=== PATIENT | male | born 1985 | race Two or more races ===

== ENCOUNTER 2020-12-05 16:17 | Outpatient (REF) | payer OTHER, SELFPAY ==
[2020-12-05 18:05] LABS: Glucose Urine UA NEG (NEG); Leukocyte Esterase Urine NEG (NEG); Nitrite Urine NEG (NEG); PH 5.5 (5.0-8.0); Specific Gravity - Urine >= 1.030 (1.005-1.025); Urine Blood NEG (NEG); Urine Ketones NEG (NEG); Urine Protein NEG (NEG-TRACE)
[2020-12-05 18:17] LABS: Appearance Urine CLEAR; Color Urine YELLOW
== END 2020-12-05 16:18 | disposition home or self-care (01) ==
LOC: HO.LAB 16:17
PROVIDERS: PCP Family Medicine; Visit Provider Family Medicine
DX: R35.0 Frequency of micturition (principal); R30.9 Painful micturition, unspecified
CPT/HCPCS: 81003; 87086

== ENCOUNTER 2022-03-26 16:41 | Outpatient (REF) | payer OTHER, SELFPAY ==
[2022-03-26 16:54] LABS: MANUAL DIFF FLAG NO
[2022-03-26 17:34] LABS: Basophils Percent Auto 0.4 % (0-2); Eosinophils Absolute Auto 0.1 X10*3/uL (0.0-0.4); Eosinophils Percent Auto 0.6 % (0-4); Hematocrit 40.2 % (42.0-52.0); Hemoglobin 13.1 g/dl (14.0-18.0); Imm Gran Abs Auto 0.03 X10*3/uL (0.00-0.03); Imm Gran Pct Auto 0.4 % (0.0-0.4); Lymphocytes Absolute Auto 2.3 X10*3/uL (1.2-4.9); Lymphocytes Percent Auto 26.9 % (20-40); Mean Corpuscular HGB Conc 32.6 g/dl (31.0-36.0); Mean Corpuscular Hemoglobin 26.5 pg (27.0-33.0); Mean Corpuscular Volume 81.4 fL (80.0-98.0); Mean Platelet Volume 9.6 fL (9.4-12.4); Monocytes Absolute Auto 0.7 X10*3/uL (0.1-1.2); Neutrophils Absolute Auto 5.4 x10*3/uL (2.0-8.3); Neutrophils Percent Auto 63.7 % (45-73); Platelet Count 334 X10*3/uL (160-400); Red Blood Count 4.94 X10*6/uL (4.60-5.80); Red Cell Distribution Width 12.6 % (11.0-16.0); White Blood Count 8.4 X10*3/uL (4.8-10.8)
== END 2022-03-26 16:42 | disposition home or self-care (01) ==
LOC: HO.LAB 16:41
PROVIDERS: PCP Family Medicine; Visit Provider Family Medicine
DX: R10.9 Unspecified abdominal pain (principal)
CPT/HCPCS: 36415; 85025

== ENCOUNTER 2022-05-05 12:46 | Outpatient (REF) | payer OTHER, SELFPAY ==
[2022-05-05 13:53] LABS: Appearance Urine Clear; Color Urine Yellow; Glucose Urine UA Negative (Negative); Leukocyte Esterase Urine Negative (Negative); Nitrite Urine Negative (Negative); PH 6.5 (5.0-9.0); Urine Blood Negative (Negative); Urine Ketones Negative (Negative); Urine Protein Negative (Neg-Trace)
== END 2022-05-05 12:47 | disposition home or self-care (01) ==
LOC: HO.LAB 12:46
PROVIDERS: PCP Family Medicine; Visit Provider Family Medicine
DX: R30.0 Dysuria (principal)
CPT/HCPCS: 81003

== ENCOUNTER → 2022-06-17 11:19 | Outpatient (BNVA) | payer OTHER, SELFPAY | PROVIDERS: PCP Family Medicine; Visit Provider Physician Assistant Medical | DX: S39.012A Strain of muscle, fascia and tendon of lower back, initial encounter (principal); X50.0XXA Overexertion from strenuous movement or load, initial encounter | CPT/HCPCS: 99203 ==

== ENCOUNTER → 2022-06-20 09:36 | Outpatient (BNVA) | payer OTHER, SELFPAY | PROVIDERS: PCP Family Medicine; Visit Provider Physician Assistant Medical | DX: S39.012A Strain of muscle, fascia and tendon of lower back, initial encounter (principal); X50.0XXA Overexertion from strenuous movement or load, initial encounter | CPT/HCPCS: 99213 ==

== ENCOUNTER → 2022-06-23 11:29 | Outpatient (BNVA) | payer OTHER, SELFPAY | PROVIDERS: PCP Family Medicine; Visit Provider Physician Assistant Medical | DX: S39.012A Strain of muscle, fascia and tendon of lower back, initial encounter (principal); X58.XXXA Exposure to other specified factors, initial encounter; M54.16 Radiculopathy, lumbar region | CPT/HCPCS: 72110; 99214 ==

== ENCOUNTER → 2022-06-27 09:20 | Outpatient (BNVA) | payer OTHER, SELFPAY | PROVIDERS: PCP Family Medicine; Visit Provider Physician Assistant Medical | DX: M54.16 Radiculopathy, lumbar region (principal) | CPT/HCPCS: 99213 ==

== ENCOUNTER → 2022-07-04 09:45 | Outpatient (BNVA) | payer OTHER, SELFPAY | PROVIDERS: PCP Family Medicine; Visit Provider Physician Assistant Medical | DX: M54.16 Radiculopathy, lumbar region (principal) | CPT/HCPCS: 99213 ==

== ENCOUNTER → 2022-07-18 09:42 | Outpatient (BNVA) | payer OTHER, SELFPAY | PROVIDERS: PCP Family Medicine; Visit Provider Physician Assistant Medical | DX: M54.16 Radiculopathy, lumbar region (principal) | CPT/HCPCS: 99213 ==

== ENCOUNTER 2022-07-18 14:00 | Outpatient (RCR) | payer OTHER, SELFPAY ==
--- NOTE | 2022-07-01 15:05 | MHC.PT.EP ---
[facility] [place] Office [place] Office [place] Office [address] Nima Goyal [address] [phone] F: [phone] F: [phone] F: [phone] F: [phone] Physical Therapy Plan of Care Date of Evaluation: Date of Surgery: Diagnosis: This is a 37 yo male presenting to skilled PT with a script for R lumbar strain Assessment: This is a 37 yo male presenting to skilled PT with a script for R lumbar strain. He was lifting a heavy box from the ground and when he was mid lift he felt a pinch in his R side low back and R leg (radiated into buttock and hamstring but not past the knee). He is being followed by [facility] work connection and returns to them on 07/04/22. Patient reports that he was given prednisone and ibuprofen which have been helping. He also had an x-ray and may get an MRI if needed. 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 He does a lot of lifting and pushing. Pain is now located at the R side low back and leg which is described still as achy and steady. Denies numbness or tingling. Pain increases with sitting. Pain improves with walking and laying down Assessment reveals pain that ranges from 4-5/10. Patient demos decreased lumbar ROM, decreased strength of back, core and gluts. He demos an antalgic gait pattern, impaired resting posture and compensatory/cautious movements with transfers. Based on functional limitations, impaired QOL and decreased pain tolerance patient is a good candidate for skilled PT 2x/wk for 5 wks. Frequency and Duration: The patient will be seen 2x/wk for 5wks Short Term Goals: I in HEP in 2wks Report 50% improvements in 3wks Centralize symptoms in 3wks Ways Operator Goals: Return to work in full when medically cleared Demo proper lifting and squatting techniques without cues from PT Improve pain to no more than 2/10 at the worst Improve oswestry by at least 5 points Treatment Plan: Modalities to reduce pain, spasms and effusion. Manual therapy to restore motion and function. Therapeutic exercise to improve strength and flexibility. Neuromuscular re-education for posture and balance. Therapeutic activities to return to functional activities of daily living. Electronically signed by: Kim Mac PT Please sign and return to therapist. Thank you for your referral.
--- NOTE | 2022-07-30 08:19 | MHC.PT.DC ---
[facility] [place] Office [place] Office [place] Office [address] Nima Goyal [address] [phone] F: [phone] F: [phone] F: [phone] F: [phone] Physical Therapy Discharge Report Diagnosis: This is a 37 yo male presenting to skilled PT with a script for R lumbar strain Date of Surgery: Date of Evaluation: 07/01/22 Date of Discharge: 07/30/22 Treatments to Date: 3 Cancellations to Date: 0 No Shows to Date: 0 Discharge Status: Achieved Goals Improved Function Independent with HEP Patient Elected to Stop Discharge Summary: 07/18/2022: At the last tx session, patient continues to be centralized with his sx. We continued with prone exercises with gentle core stab. He had no increase in pain with any interventions today. We added bridges which did not increase pain today. Cues for not lifting hips with prone extensions. Plan was to to consider adding hip add and deadbugs next visit per primary PT POC however DC'd as patient reports feeling much better and ready for DC. Continued with manual, estim, and KT tape as well all without adverse reaction but sensitivity to R low back >L. DC to HEP Electronically signed by: Kim Mac PT Please sign and return to therapist. Thank you for your referral.
== END 2022-07-30 08:19 | disposition home or self-care (01) ==
LOC: HO.PTCHIC 14:00
PROVIDERS: Visit Provider Physician Assistant Medical
DX: S39.012D Strain of muscle, fascia and tendon of lower back, subsequent encounter (principal)
CPT/HCPCS: 97014; 97110; 97140; 97161

== ENCOUNTER 2023-04-09 14:52 | Outpatient (REF) | payer SELFPAY ==
[2023-04-10 16:33] LABS: Homocysteine 9.3 umol/L (<11.4)
== END 2023-04-09 14:53 | disposition home or self-care (01) ==
LOC: HO.CHCLDS 14:52
PROVIDERS: Visit Provider Family Medicine
DX: Z82.49 Family history of ischemic heart disease and other diseases of the circulatory system (principal)
CPT/HCPCS: 36415; 83090

== ENCOUNTER 2023-12-09 10:58 | Outpatient (REF) | payer OTHER, SELFPAY ==
[2023-12-09 13:11] LABS: MANUAL DIFF FLAG NO
[2023-12-09 13:15] LABS: Basophils Percent Auto 0.2 % (0-2); Eosinophils Absolute Auto 0.1 X10*3/uL (0.0-0.4); Eosinophils Percent Auto 1.2 % (0-4); Hematocrit 41.8 % (42.0-52.0); Hemoglobin 13.7 g/dl (14.0-18.0); Imm Gran Abs Auto 0.01 X10*3/uL (0.00-0.03); Imm Gran Pct Auto 0.2 % (0.0-0.4); Lymphocytes Absolute Auto 1.6 X10*3/uL (1.2-4.9); Lymphocytes Percent Auto 31.3 % (20-40); Mean Corpuscular HGB Conc 32.8 g/dl (31.0-36.0); Mean Corpuscular Hemoglobin 26.7 pg (27.0-33.0); Mean Corpuscular Volume 81.3 fL (80.0-98.0); Mean Platelet Volume 9.9 fL (9.4-12.4); Monocytes Absolute Auto 0.5 X10*3/uL (0.1-1.2); Monocytes Percent Auto 10.8 % (2-11); Neutrophils Absolute Auto 2.8 x10*3/uL (2.0-8.3); Neutrophils Percent Auto 56.3 % (45-73); Platelet Count 278 X10*3/uL (160-400); Red Blood Count 5.14 X10*6/uL (4.60-5.80); Red Cell Distribution Width 12.2 % (11.0-16.0)
[2023-12-09 14:07] LABS: Erythrocyte Sedimentation Rate 6 MM/HR (0-15)
== END 2023-12-09 10:59 | disposition home or self-care (01) ==
LOC: HO.10HDL 10:58
PROVIDERS: Visit Provider Family Medicine
DX: R10.32 Left lower quadrant pain (principal)
CPT/HCPCS: 36415; 85025; 85652

== ENCOUNTER 2024-03-21 16:24 | Outpatient (REF) | payer OTHER, SELFPAY ==
[2024-03-21 17:04] LABS: Appearance Urine Clear; Color Urine Yellow; Glucose Urine UA Negative (Negative); Leukocyte Esterase Urine Negative (Negative); Nitrite Urine Negative (Negative); Specific Gravity - Urine 1.025 (1.005-1.025); Urine Blood Negative (Negative); Urine Ketones Trace mg/dL (Negative); Urine Protein Negative (Neg-Trace)
== END 2024-03-21 16:25 | disposition home or self-care (01) ==
LOC: HO.LAB 16:24
PROVIDERS: PCP Family Medicine; Visit Provider Family Medicine
DX: R30.0 Dysuria (principal)
CPT/HCPCS: 81003

== ENCOUNTER 2024-11-02 15:54 | Outpatient (AMB) | payer OTHER, SELFPAY ==
--- NOTE | 2024-11-02 13:48 | A.OFFPC_ITS ---
Vital Signs 11/02/24 15:59 Height 5 ft 9 in Weight 171 lb BMI 25.2 BP 120/76 Blood Pressure Location Lt brachial Position Sitting Pulse 78 Pulse Source Pulse Oximeter Temp 97.8 F Temp Source Axillary Pulse Oximetry (%) 99 Oxygen Delivery Method Room Air Intake Visit Reasons: Back pain - see comments Outside Food Server Required: No Accompanied by: Self / Same As Patient Allergies No Known Allergies Allergy (Verified 11/02/24 13:48) Tobacco use date assessed: 11/02/24 Dental Screening Dental Screen Date: 11/02/24 Did you have a dental visit in the last 12 months?: Yes Did you have a dental problem in the last 6 months where you did not have access to dental care?: No PFSH Family History (Updated 11/02/24 @ 16:02 by Melvi Benitez MA) Mother No problems noted. Father No problems noted. Social History Housing: House Patient Tobacco Use Status: Never used Tobacco e-Cigarette/Vaping Use: Never Used service: No Current occupational status: employed Cognitive needs: No Hearing needs: No Vision needs: No Questionnaire PHQ-9 Over the last 2 weeks, how often have you been bothered by any of the following problems? 1. Little interest or pleasure in doing things: not at all 2. Feeling down, depressed, or hopeless: not at all 3. Trouble falling or staying asleep, or sleeping too much: not at all 4. Feeling tired or having little energy: not at all 5. Poor appetite or overeating: not at all 6. Feeling bad about yourself - or that you are a failure or have let yourself or your family down: not at all 7. Trouble concentrating on things, such as reading the newspaper or watching television: not at all 8. Moving or speaking so slowly that other people could have noticed. Or the opposite - being so fidgety or restless that you have been moving around a lot more than usual: not at all 9. Thoughts that you would be better off or of hurting yourself in some way: not at all Total score: 0 Source: Developed by Drs. Gilbert Maynard, Anna Braxton, Luis Valle and colleagues, with an educational marquis from [employer]. Thrive Questionnaire Date Thrive assessed: 11/02/24 I am a: Patient Within the past 12 months, did the food you bought not last and you didn't have the money to get more?: Never true Within the past 12 months, did you worry whether your food would run out before you got money to buy more?: Never true Do you have trouble paying for medicines?: No Do you have trouble getting transportation to medical appointments?: No Do you have trouble paying your heating and electricity bill?: No Do you have trouble taking care of your child, family member or friend?: No Do you have trouble with day-to-day activities such as bathing, preparing meals, shopping, managing finances, etc.?: No Are you currently unemployed and looking for a job?: No Are you interested in more education?: No THRIVE Score: 0 AUDIT C Alcohol Use Questionnaire (AUDIT-C) 1. How often do you have a drink containing alcohol?: Never 3. How often do you have six or more drinks on one occasion?: Never Total Score: 0 LYNN-7 AMB Questionnaire LYNN-7 Date LYNN - 7 assessed: 11/02/24 Feeling nervous, anxious, or on edge: 0 = Not at all Not being able to stop or control worryin = Not at all Worrying too much about different things: 0 = Not at all Trouble relaxin = Not at all Being so restless that it is hard to sit still: 0 = Not at all Becoming easily annoyed or irritable: 0 = Not at all Feeling afraid as if something awful might happen: 0 = Not at all Total LYNN-7 score (0-4 normal; 5-9 mild; 10-14 moderate; 15-21 severe): 0 Source: Developed by Drs. Gilbert Maynard, Anna Braxton, Luis Valle and colleagues, with an educational marquis from [employer]. Physical exam (Primary Care) Vital Signs: Last Vital Signs Temp 97.8 F 11/02/24 15:59 Pulse 78 11/02/24 15:59 BP 120/76 11/02/24 15:59 Pulse Ox 99 11/02/24 15:59 Oxygen Delivery Method Room Air 11/02/24 15:59 BMI result Body Mass Index 25.2 Tobacco/Smoking Status: Tobacco use Status Tobacco use date assessed 11/02/24 11/02/24 13:49 Patient Tobacco Use Status Never used Tobacco 11/02/24 13:49 e-Cigarette/Vaping Use Never Used 11/02/24 13:49 PHQ-9: PHQ-9 Score PHQ-9: Total score 0 11/02/24 16:02 Thrive Assessment: Date of Thrive Assessment Date Thrive assessed 11/02/24 11/02/24 13:49 Coding Level of Care Code New Pt Level 4 (36278) Complex EM visit Add On G2211 Diagnoses Low back pain M54.50 Assessment & Plan Assessment & Plan (1) Low back pain: Code(s): M54.50 - Low back pain, unspecified Plan: History of Present Illness - The patient is a 39-year-old male presenting with musculoskeletal back pain and urinary hesitancy. - Musculoskeletal back pain: The patient reports experiencing back pain primarily on one side, which has been persistent but is better today. - The pain is not treated regularly with stretching exercises, although the patient acknowledges the need for strengthening exercises to prevent worsening. - Urinary hesitancy: The patient reports occasional difficulty initiating urination, particularly after holding urine for extended periods, which has occurred twice. 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 - The patient denies smoking, alcohol, or drug use and is not on any regular medications. 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 - Family status: with three children. - Substance use: Denies smoking, alcohol, or drug use. Review of Systems - Musculoskeletal: Reports back pain primarily on one side. - Genitourinary: Reports occasional urinary hesitancy, particularly after holding urine for extended periods. - Psychological: Denies anxiety. Physical Exam General: Cooperative and healthy appearing Nutritional Appearance: Well nourished Orientation/consciousness: Patient oriented x3 Limitations: No limitations Head: Normal to inspection General: Appearance normal, both eyes and all related structures Neck: Normal visual inspection Chest: Normal palpation of entire chest wall Respiratory: Normal respiratory effort Neurology: Patient oriented x3 Results Plan 1. Musculoskeletal Back Pain - Recommend physical therapy to teach stretching and strengthening exercises. 2. Urinary Hesitancy - Monitor symptoms and consider further evaluation if symptoms persist. 3. Preventative Care - Blood work recommended to assess overall health status. Discussion Notes I discussed with the patient the likely musculoskeletal nature of his back pain and recommended physical therapy for stretching and strengthening exercises. We also talked about monitoring his urinary symptoms and the importance of not holding urine for extended periods. Blood work was suggested to evaluate his overall health status. Patient Instructions - Begin physical therapy to learn stretching and strengthening exercises for back pain. - Avoid holding urine for long periods to prevent urinary hesitancy. - Follow up with blood work as recommended. Orders: Orders Liver Panel Today M54.50 - Low back pain, unspecified Lipid Panel Today M54.50 - Low back pain, unspecified Thyroid Stimulating Hormone Today M54.50 - Low back pain, unspecified PSA,Total (Free>4and<10) Today M54.50 - Low back pain, unspecified Basic Metabolic Panel Today M54.50 - Low back pain, unspecified Complete Blood Count no Diff Today M54.50 - Low back pain, unspecified UA and rflx microscopic Today M54.50 - Low back pain, unspecified Referrals Cologuard Test Z12.11 - Encounter for screening for malignant neoplasm of colon
[2024-11-02 15:59] VITALS: BP 120/76; PULSE 78; TEMP 36.6; O2SAT 99; BMI 25.2
== END 2024-11-02 16:20 | disposition home or self-care (01) ==
LOC: HO.HMCHD 15:55
PROVIDERS: Visit Provider Internal Medicine
DX: M54.50 Low back pain, unspecified (principal)

== ENCOUNTER 2024-11-03 06:39 | Outpatient (REF) | payer OTHER, SELFPAY ==
[2024-11-03 07:07] LABS: Hematocrit 39.6 % (42.0-52.0); Hemoglobin 13.3 g/dl (14.0-18.0); Mean Corpuscular HGB Conc 33.6 g/dl (31.0-36.0); Mean Corpuscular Hemoglobin 27.1 pg (27.0-33.0); Mean Corpuscular Volume 80.8 fL (80.0-98.0); NRBC Abs Auto 0.000 X10*3/uL (0.0-0.012); NRBC Pct Auto 0.0 /100WBC (0.0-0.2); Platelet Count 246 X10*3/uL (160-400); Red Blood Count 4.90 X10*6/uL (4.60-5.80); White Blood Count 5.2 X10*3/uL (4.8-10.8)
[2024-11-03 07:40] LABS: Alanine Aminotransferase 36 U/L (0-40); Albumin Level 4.8 g/dL (3.5-5.0); Alkaline Phosphatase 56 U/L (39-117); Anion Gap 12 (12-20); Aspartate Amino Transferase 25 U/L (5-37); Blood Urea Nitrogen 20 mg/dL (9-16); Calcium 9.4 mg/dL (8.4-10.2); Carbon Dioxide 28 mmol/L (22-29); Chloride 105 mmol/L (96-108); Cholesterol 210 mg/dL (<200); Estimated Glomerular Filt Rate > 60; HDL Cholesterol 47 mg/dL (>40); Potassium 4.0 mmol/L (3.3-5.1); Sodium 141 mmol/L (135-145); Total Protein 7.0 g/dL (6.5-8.0); Triglycerides 105 mg/dL (<150)
[2024-11-03 07:55] LABS: PSA,Total (Free>4and<10) 0.96 ng/mL (0.00-4.00); Thyroid Stimulating Hormone 2.06 uIU/mL (0.32-4.0)
== END 2024-11-03 06:40 | disposition home or self-care (01) ==
LOC: HO.LAB 06:39
PROVIDERS: PCP Internal Medicine; Visit Provider Internal Medicine
DX: M54.50 Low back pain, unspecified (principal)
CPT/HCPCS: 36415; 80048; 80061; 80076; 84153; 84443; 85027

== ENCOUNTER 2024-11-09 16:13 | Outpatient (REF) | payer OTHER, SELFPAY ==
[2024-11-09 17:02] LABS: Appearance Urine Clear; Glucose Urine UA Negative (Negative); PH 5.5 (5.0-9.0); Specific Gravity - Urine >= 1.030 (1.005-1.025)
== END 2024-11-09 16:14 | disposition home or self-care (01) ==
LOC: HO.LAB 16:13
PROVIDERS: PCP Internal Medicine; Visit Provider Internal Medicine
DX: M54.50 Low back pain, unspecified (principal)
CPT/HCPCS: 81003

== ENCOUNTER 2024-12-07 15:48 | Outpatient (AMB) | payer OTHER, SELFPAY ==
--- NOTE | 2024-12-07 16:00 | MHC.PC.OV ---
Vital Signs 12/07/24 16:02 Height 5 ft 9 in Weight 168 lb BMI 24.8 BP 116/72 Blood Pressure Location Rt brachial Position Sitting Respiration 16 Pulse 70 Pulse Source Pulse Oximeter Temp 98 F Temp Source Temporal Artery Scan Pulse Oximetry (%) 98 Intake Visit Reasons: 6 MO F/UP - DEAL PT - see comments Accompanied by: Self / Same As Patient Allergies No Known Allergies Allergy (Verified 12/07/24 16:00) Tobacco use date assessed: 11/02/24 Dental Screening Dental Screen Date: 11/02/24 HPI HPI Comments History of Present Illness Details The patient is a 39-year-old male presenting with abdominal pain. This pain has been mentioned as a recurring issue over the past six months and is located in the lower left quadrant of the abdomen. The patient describes this pain as constant, not cramping, and rates it as 5 out of 10 on a pain scale. The pain does not radiate to other areas. The onset of pain does not seem to correlate with specific activities or timings and can occur any time of the day. The patient reports that the pain was discussed in a previous doctor's appointment, but it still persists. There are no associated symptoms such as weight loss, blood in urine, or painful urination. The patient mentioned experiencing soft stools for a few days but denies any diarrhea or blood in the stools. There are no associated symptoms such as nausea, vomiting, headaches, vision changes, chest pain, fevers, or chills. Overall, despite the discomfort, the patient feels otherwise healthy. His main concern remains the persistent nature of the abdominal pain. Medical History: - Hypercholesterolemia Medications: - Cholesterol medication (exact type unspecified) for hypercholesterolemia Social History: - No alcohol consumption - Denies smoking, vaping, or marijuana use - Wears glasses, noting vision changes over time Diagnostic Results: - Labs: - Blood cholesterol levels noted as high - Tests and Diagnostics: - Previous normal urine test two weeks ago [facility] Medical History (Updated 12/07/24 @ 16:14 by Damon Bartlett MD) Hyperlipidemia Abdominal pain Family History (Updated 11/02/24 @ 16:02 by Melvi Benitez MA) Mother No problems noted. Father No problems noted. Social History Housing: House Patient Tobacco Use Status: Never used Tobacco e-Cigarette/Vaping Use: Never Used service: No Current occupational status: employed Cognitive needs: No Hearing needs: No Vision needs: No Questionnaire PHQ-9 Over the last 2 weeks, how often have you been bothered by any of the following problems? 1. Little interest or pleasure in doing things: not at all 2. Feeling down, depressed, or hopeless: not at all 3. Trouble falling or staying asleep, or sleeping too much: not at all 4. Feeling tired or having little energy: not at all 5. Poor appetite or overeating: not at all 6. Feeling bad about yourself - or that you are a failure or have let yourself or your family down: not at all 7. Trouble concentrating on things, such as reading the newspaper or watching television: not at all 8. Moving or speaking so slowly that other people could have noticed. Or the opposite - being so fidgety or restless that you have been moving around a lot more than usual: not at all 9. Thoughts that you would be better off or of hurting yourself in some way: not at all Total score: 0 Depression Screening Interpretation: Negative Depression Screening Done: Yes 77522 - PHQ-9 Billing: Yes Source: Developed by Drs. Gilbert Maynard, Anna Braxton, Luis Valle and colleagues, with an educational marquis from [employer]. Thrive Questionnaire Date Thrive assessed: 11/02/24 AUDIT C Alcohol Use Questionnaire (AUDIT-C) 1. How often do you have a drink containing alcohol?: Never 3. How often do you have six or more drinks on one occasion?: Never Total Score: 0 LYNN-7 AMB Questionnaire LYNN-7 Date LYNN - 7 assessed: 12/07/24 Feeling nervous, anxious, or on edge: 0 = Not at all Not being able to stop or control worryin = Not at all Worrying too much about different things: 0 = Not at all Trouble relaxin = Not at all Being so restless that it is hard to sit still: 0 = Not at all Becoming easily annoyed or irritable: 0 = Not at all Feeling afraid as if something awful might happen: 0 = Not at all Total LYNN-7 score (0-4 normal; 5-9 mild; 10-14 moderate; 15-21 severe): 0 Source: Developed by Drs. Gilbert Maynard, Anna Braxton, Luis Valle and colleagues, with an educational marquis from [employer]. LYNN-7 Assessment Billing LYNN-7 Assessment Tool: LYNN-7 Assessment 74461 Review of Systems Const Details: - Abdominal: Reports constant pain, denies cramping - Gastrointestinal: Denies diarrhea, reports soft stools occasionally - Urinary: Denies pain or blood with urination, reports pain if holds urine too long - General: Denies weight loss, fever, and chills - Neurological: Denies headaches, reports vision changes - Respiratory: Denies chest pain or respiratory issues - Psychiatric: Denies depression, anxiety Physical exam (Primary Care) Vital Signs: Last Vital Signs Temp 98 F 12/07/24 16:02 Pulse 70 12/07/24 16:02 Resp 16 12/07/24 16:02 BP 116/72 12/07/24 16:02 Pulse Ox 98 12/07/24 16:02 BMI result Body Mass Index 24.8 Tobacco/Smoking Status: Tobacco use Status Tobacco use date assessed 11/02/24 12/07/24 16:04 Patient Tobacco Use Status Never used Tobacco 12/07/24 16:04 e-Cigarette/Vaping Use Never Used 12/07/24 16:04 Depression Screening Interpretation: Negative Thrive Assessment: Date of Thrive Assessment Date Thrive assessed 11/02/24 12/07/24 16:04 Const Other: - General- No acute distress - Abdominal- No tenderness to palpation noted, liver and spleen not enlarged - Neuromuscular- Good strength; no pain or tenderness during examination - Neck- No lymphadenopathy - Respiratory- Lungs clear - Cardiovascular- Normal heart sounds Coding Level of Care Code Est Pt Level 4 (39775) Diagnoses Abdominal pain R10.9 Additional Codes PHQ-9 - 36891 - PHQ-9 Billing: Yes ([id number]) LYNN-7 Assessment Billing - LYNN-7 Assessment Tool: LYNN-7 Assessment 58810 ([id number]) Assessment & Plan Assessment & Plan (1) Abdominal pain: Comment: - Assess abdominal pain with a planned abdominal ultrasound to investigate underlying causes. - Reassure the patient regarding the absence of serious features on examination. Code(s): R10.9 - Unspecified abdominal pain Category: Medical Plan: Order Ultrasound Plan 2. Hypercholesterolemia - Continue current cholesterol medication. - Advise on regular monitoring of cholesterol levels. - Encourage lifestyle modifications to manage cholesterol effectively I discussed the likely benign nature of the patient's abdominal pain given the absence of alarming features in history and examination. An abdominal ultrasound has been ordered to further evaluate. I emphasized the importance of not holding urine to avoid discomfort and possible complications. We reviewed the patient's cholesterol management plan, emphasizing adherence to medications and lifestyle changes. I reassured him regarding his overall health and encouraged him to remain active. Orders: Orders US abdomen complete Today E78.5 - Hyperlipidemia, unspecified Patient Instructions: - Follow a healthy diet and lifestyle to manage cholesterol levels. - Do not hold urine to prevent discomfort. - Report any new or worsening symptoms promptly. - Attend the scheduled ultrasound appointment. - Continue taking prescribed cholesterol medication as directed.
[2024-12-07 16:02] VITALS: BP 116/72; PULSE 70; RESP 16; TEMP 36.6; O2SAT 98; BMI 24.8
== END 2024-12-07 16:20 | disposition home or self-care (01) ==
PROVIDERS: PCP Student in an Organized Health Care Education/Training Program; Visit Provider Student in an Organized Health Care Education/Training Program
DX: R10.9 Unspecified abdominal pain (principal)

== ENCOUNTER → 2024-12-07 15:48 | Outpatient (BNVA) | payer OTHER, SELFPAY | PROVIDERS: PCP Family Medicine; Visit Provider Student in an Organized Health Care Education/Training Program | DX: R10.9 Unspecified abdominal pain (principal); E78.00 Pure hypercholesterolemia, unspecified; Z13.31 Encounter for screening for depression; Z13.39 Encounter for screening examination for other mental health and behavioral disorders | CPT/HCPCS: 96127 ==

== ENCOUNTER 2025-01-11 19:05 | Emergency (ER) | payer OTHER, SELFPAY ==
--- NOTE | ~2025-01-11 | CT_ITS ---
CLINICAL HISTORY: Left flank pain CT Abdomen and Pelvis WO Contrast COMPARISON: None provided FINDINGS: Normal liver. Normal spleen. Normal kidneys. No urolithiasis or hydronephrosis. Normal adrenal glands. Normal pancreas. Status post cholecystectomy. No abnormal biliary dilation. No evidence of bowel obstruction or colitis. The appendix is not identified, however, no secondary signs of acute appendicitis. Mild diffuse bladder wall thickening. No ascites. No pneumoperitoneum. No lymphadenopathy. No acute fracture. No abdominal aortic aneurysm. IMPRESSION: Possible cystitis. This document has been electronically signed by: Garrett Meek MD on 01/12/2025 00:33:01
[2025-01-11 19:25] VITALS: BP 166/84; PULSE 80; RESP 18; TEMP 36.6; O2SAT 99; BMI 24.2
--- NOTE | 2025-01-11 19:36 | ED.ABDPAIN ---
HPI - Abdominal Pain General Chief Complaint: Abdominal Pain Stated Complaint: abd pain Time Seen by Provider: 01/11/25 22:16 Source: patient Mode of arrival: ambulatory Limitations: no limitations History of Present Illness ED Provider: DR. Ely HPI narrative: A 39-year-old male came in for evaluation of left flank pain that is started about a month ago patient was seen and evaluated by his PCP, because improvement of his symptoms no outpatient workup was granted, patient woke up this morning started to have the same left flank pain radiating to the left groin area, declined frequency urination, no hematuria, no fever, no chills, sexually active with 1 partner patient confidently rule out risk for STDs, no urethral discharge, no history of kidney stones, last bowel movement was normal this morning, passing flatus, no diarrhea, no recent travel, no recent use of antibiotic. Intra-abdominal surgery is significant for cholecystectomy. History of recent moving furniture around with possible back pain related to this. No sick contacts, no recent travel, no recent use of antibiotic. Related Data Previous Rx's ?Medication ?Instructions ?Recorded atorvastatin 20 mg tablet 20 mg PO BEDTIME #90 tabs 11/08/24 Allergies Allergy/AdvReac Type Severity Reaction Status Date / Time No Known Allergies Allergy Verified 01/11/25 19:28 Review of Systems Review of Systems All other systems are reviewed and are negative Constitutional: Reports as per HPI and Reports no additional constitutional complaints Eyes: Reports as per HPI and Reports no additional eye complaints Reports system reviewed and no additional complaints, except as documented Cardiovascular: Reports as per HPI and Reports no additional cardiovascular complaints Respiratory: Reports as per HPI and Reports no additional respiratory complaints Gastrointestinal: Reports as per HPI and Reports no additional gastrointestinal complaints Genitourinary: Reports no additional female genitourinary complaints Musculoskeletal: Reports no additional musculoskeletal complaints Skin/Breast: Reports system reviewed and no additional complaints, except as docu Psychiatric: Reports no additional psychiatric complaints Endocrine: Reports no additional endocrine complaints Hematologic/Lymphatic: Reports no additional hematologic/lymphatic complaints Allergic/Immunologic: Reports no additional allergic/immunologic complaints Reports system reviewed and no additional complaints, except as documented and Reports Abnormal speech present PMFSH Past Medical History Medical History Hyperlipidemia Abdominal pain Family History Family History Mother No problems noted. Father No problems noted. Social History Social History Housing: House Patient Tobacco Use Status: Never used Tobacco Smoked in Last 30 Days: No e-Cigarette/Vaping Use: Never Used Use of substances other than those prescribed or required for medical reasons: No Advance Directives: No Advance Directives Information Provided: Yes service: No Current occupational status: employed Cognitive needs: No Hearing needs: No Vision needs: No Physical Exam ED Vital Signs: Vital Signs - 24 hr 01/11/25 19:25 01/11/25 22:20 01/11/25 22:51 Temperature 97.8 F 98.1 F Pulse Rate 80 88 75 Respiratory Rate 18 18 16 Blood Pressure 166/84 H 151/93 H 132/78 Pulse Oximetry 99 98 97 Oxygen Delivery Method Room Air Room Air Room Air BMI result Body Mass Index 24.2 Vital signs have been reviewed and appear to be correct. Blood pressure elevated. Heart rate normal. Respiratory rate normal. Temperature normal. Oxygen saturation normal. Appearance: Alert. Oriented X3. No acute distress. Head: Normal external exam. Normocephalic. Atraumatic. No Earl signs noted. No raccoon eyes noted Eyes: PERRLA. EOMI. Conjunctiva and sclera normal. Eyelids normal. ENT: TM's Normal. Pharynx normal. Uvula midline. Moist mucous membranes. No trismus noted. No drooling noted. No muffled voice noted. Neck: Normal inspection. Neck supple. FROM. No adenopathy. Thyroid Normal. No meningeal signs. No neck mass noted. CVS: Normal heart rate and rhythm. Heart sound normal. No murmurs noted. Pulses normal throughout. Respiratory: No respiratory distress. Painless inspiration. Breath sounds normal. No wheezes/rales/rhonchi noted. Chest nontender. No accessory muscle usage noted or decreased air movement noted. Abdomen: Soft and nontender. Bowel sounds normal in all 4 quadrants. No distention noted. No organomegaly noted. No visible injury noted. Back: No CVA tenderness. Full range of motion noted. Skin: Skin warm and dry. Normal skin color. Normal skin turgor. No rashes/lesions/lacerations noted. Extremities: No lower extremity edema. Extremities exhibit normal range of motion. Extremities nontender. Neuro: Oriented X 3. Cranial nerve exam: II-XII are grossly intact No motor deficit. No sensory deficit. Reflexes normal. Course Course Course Narrative: This is an RME: Additional HPI, ROS, PE not included below will be deferred to primary provider. RME assessment and note performed by: Trish Renee PA-C This is a 39-year-old male who presents emergency department with complaints of abdominal pain radiating to his back. Urinating in small amounts. No blood in urine. Endorsing nausea, no vomiting, diarrhea, or constipation. Plan: Labs, UA, further ER evaluation needed. Reevaluation(s) Reevaluation #1: 01/12/2025: 39-year-old male with left flank pain. 1. No radiographic evidence of renal colic or kidney stone. 2. CT abdomen pelvis reveals no clear etiology of patient's symptoms. 3. Unremarkable labs/UA. CT suggesting cystitis UA is clean. Time: 00:39 Medical Decision Making Differential Diagnosis Differential Diagnoses: The differential diagnosis associated with the presentation includes (UTI, pyelonephritis, STI, kidney stone renal colic colitis, diverticulitis, electrolyte derangement, severe anemia, pancreatitis.) Admission/Observation Consideration of admission/observation: Escalation of care including admission/observation considered Lab Data MDM Lab Attestation statement: I reviewed the patient's lab results. 01/11/25 20:03 01/11/25 20:03 Labs: Lab Results 01/11/25 01/11/25 Range/Units 20:03 20:07 WBC 8.7 (4.8-10.8) X10*3/uL RBC 4.64 (4.60-5.80) X10*6/uL Hgb 12.4 L (14.0-18.0) g/dl Hct 36.9 L (42.0-52.0) % MCV 79.5 L (80.0-98.0) fL MCH 26.7 L (27.0-33.0) pg MCHC 33.6 (31.0-36.0) g/dl RDW 11.9 (11.0-16.0) % Plt Count 263 (160-400) X10*3/uL MPV 10.0 (9.4-12.4) fL Immature Gran % (Auto) 0.7 H (0.0-0.4) % Neut % (Auto) 70.2 (45-73) % Lymph % (Auto) 17.5 L (20-40) % [place] % (Auto) 10.8 (2-11) % Eos % (Auto) 0.6 (0-4) % Baso % (Auto) 0.2 (0-2) % Lymph # (Auto) 1.5 (1.2-4.9) X10*3/uL [place] # (Auto) 0.9 (0.1-1.2) X10*3/uL Eos # (Auto) 0.1 (0.0-0.4) X10*3/uL Baso # (Auto) 0.0 (0.0-0.2) X10*3/uL Abs Immat Gran (auto) 0.06 H (0.00-0.03) X10*3/uL Absolute Neuts (auto) 6.1 (2.0-8.3) x10*3/uL Absolute Nucleated RBC 0.000 (0.0-0.012) X10*3/uL Nucleated RBC % (auto) 0.0 (0.0-0.2) /100WBC Sodium 140 (135-145) mmol/L Potassium 4.0 (3.3-5.1) mmol/L Chloride 105 (96-108) mmol/L Carbon Dioxide 27 (22-29) mmol/L Anion Gap 12 (12-20) BUN 19 H (9-16) mg/dL Creatinine 0.81 (0.5-1.4) mg/dL Estim Creat Clear Calc 121.2 Estimated GFR > 60 Random Glucose 103 (60-115) mg/dL Calcium 9.6 (8.4-10.2) mg/dL Magnesium 2.0 (1.6-2.6) mg/dL Total Bilirubin 0.7 (0.0-1.0) mg/dL Direct Bilirubin 0.2 (0.0-0.5) mg/dL AST 24 (5-37) U/L ALT 35 (0-40) U/L Alkaline Phosphatase 72 (39-117) U/L Total Protein 7.3 (6.5-8.0) g/dL Albumin 4.9 (3.5-5.0) g/dL Lipase 11 (8-78) U/L Urine Color Yellow Urine Appearance Clear Urine pH 7.0 (5.0-9.0) Ur Specific [place] 1.015 (1.005-1.025) Urine Protein Negative (Neg-Trace) mg/dL Urine Glucose (UA) Negative (Negative) mg/dL Urine Ketones Negative (Negative) mg/dL Urine Blood Negative (Negative) Urine Nitrite Negative (Negative) Ur Leukocyte Esterase Negative (Negative) Independent Interpretation I performed an independent interpretation of an: CT Scan (Abdomen pelvis: No acute intra-abdominal pathology.) Radiology Impression Discussion of test interpretation with radiology: I have reviewed the radiologist's reading. Discharge Plan Discharge Clinical Impression: Abdominal pain, Myofascial pain Patient Disposition: Home, Self-Care Instructions: Flank Pain (ED) Prescriptions: No Action atorvastatin 20 mg tablet 20 mg PO BEDTIME Qty: 90 1RF Referrals: Damon Bartlett MD [Primary Care Provider, Internal Medicine] Print Language: Macedonian
[2025-01-11 20:11] LABS: MANUAL DIFF FLAG NO
[2025-01-11 20:17] LABS: Appearance Urine Clear; Glucose Urine UA Negative (Negative); PH 7.0 (5.0-9.0); Specific Gravity - Urine 1.015 (1.005-1.025)
[2025-01-11 20:31] LABS: Alanine Aminotransferase 35 U/L (0-40); Albumin Level 4.9 g/dL (3.5-5.0); Alkaline Phosphatase 72 U/L (39-117); Anion Gap 12 (12-20); Aspartate Amino Transferase 24 U/L (5-37); Blood Urea Nitrogen 19 mg/dL (9-16); Calcium 9.6 mg/dL (8.4-10.2); Carbon Dioxide 27 mmol/L (22-29); Chloride 105 mmol/L (96-108); Creatinine Clr Calc Pharmacy 121.2; Estimated Glomerular Filt Rate > 60; Magnesium 2.0 mg/dL (1.6-2.6); Potassium 4.0 mmol/L (3.3-5.1); Sodium 140 mmol/L (135-145); Total Protein 7.3 g/dL (6.5-8.0)
[2025-01-11 20:44] LABS: Hematocrit 36.9 % (42.0-52.0); Hemoglobin 12.4 g/dl (14.0-18.0); Imm Gran Abs Auto 0.06 X10*3/uL (0.00-0.03); Imm Gran Pct Auto 0.7 % (0.0-0.4); Lymphocytes Absolute Auto 1.5 X10*3/uL (1.2-4.9); Mean Corpuscular HGB Conc 33.6 g/dl (31.0-36.0); Mean Corpuscular Hemoglobin 26.7 pg (27.0-33.0); Mean Corpuscular Volume 79.5 fL (80.0-98.0); NRBC Abs Auto 0.000 X10*3/uL (0.0-0.012); NRBC Pct Auto 0.0 /100WBC (0.0-0.2); Platelet Count 263 X10*3/uL (160-400); Red Blood Count 4.64 X10*6/uL (4.60-5.80); White Blood Count 8.7 X10*3/uL (4.8-10.8)
[2025-01-11 22:20] VITALS: BP 151/93; PULSE 88; RESP 18; O2SAT 98
[2025-01-11 22:39] LABS: Lipase 11 U/L (8-78)
[2025-01-11 22:51] VITALS: BP 132/78; PULSE 75; RESP 16; TEMP 36.7; O2SAT 97
[2025-01-12 03:00] VITALS: BP 134/76; PULSE 81; RESP 16; TEMP 36.9; O2SAT 98
[2025-01-12 04:00] VITALS: BP 134/76; PULSE 81; RESP 16; TEMP 36.9; O2SAT 98
[2025-01-12 07:17] VITALS: BP 134/76; PULSE 81; RESP 16; TEMP 36.9; O2SAT 98
== END 2025-01-12 04:30 | disposition home or self-care (01) ==
PROVIDERS: Physician Assistant Medical; Emergency Provider Emergency Medicine; PCP Student in an Organized Health Care Education/Training Program
DX: M79.18 Myalgia, other site (principal); R10.A0 Flank pain, unspecified side; R10.30 Lower abdominal pain, unspecified
CPT/HCPCS: 36415; 74176; 80048; 80076; 81003; 83690; 83735; 85025; 99284

== ENCOUNTER → 2025-01-11 22:24 | Outpatient (BNV) | payer OTHER, SELFPAY | PROVIDERS: Emergency Provider Emergency Medicine; PCP Student in an Organized Health Care Education/Training Program; Visit Provider Radiology Diagnostic Radiology | DX: R10.9 Unspecified abdominal pain (principal) | CPT/HCPCS: 74176 ==

== ENCOUNTER 2025-01-17 09:57 | Outpatient (AMB) | payer OTHER, SELFPAY ==
--- NOTE | 2025-01-17 08:35 | MHC.PC.OV ---
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 Accompanied by: Self / Same As Patient Allergies No Known Allergies Allergy (Verified 01/17/25 08:35) Medication List - Last Reconciled 01/17/25 by Damon Bartlett MD atorvastatin 20 mg PO BEDTIME polyethylene glycol 3350 (Miralax) 17 grams PO DAILY 100 days Tobacco use date assessed: 01/17/25 Dental Screening Dental Screen Date: 01/17/25 Did you have a dental visit in the last 12 months?: Yes Did you have a dental problem in the last 6 months where you did not have access to dental care?: No HPI HPI Comments History of Present Illness Details The patient is a 39-year-old male presenting with abdominal pain and headache. The abdominal pain began on Thursday and is localized to the left side of the abdomen and back. The patient initially went to the emergency room on the same day, where a CT scan and laboratory tests were conducted, all of which returned normal results. Despite this, the patient continued to experience abdominal pain. The next day, the patient attempted to return to work but felt unwell after half a day and returned home. By into Thursday, the abdominal pain persisted and was joined by headaches. The patient described the headaches as strong and did not report any changes in vision, running nose, or vomiting. No significant abnormalities were noted in the patient's scan and labs, including normal blood work and urine tests. The patient denied symptoms of acid reflux, heartburn, or significant alterations in bowel movements; however, the patient noted occasional difficulty in completely voiding the bladder. The bowel movements were described as regular but, based on the CT scan, there was noted constipation. The abdominal pain was described as not sharp but more of a burning sensation that the patient associated with headaches. As of the current visit, the previously persistent abdominal pain and intense headaches had lessened significantly, with improvements noted after rest and the use of Tylenol. Medical History: - Hypercholesterolemia - Previous episodes of strong headaches during past COVID-19 infection Medications: - Atorvastatin for cholesterol management Diagnostic Results: - Labs: Normal blood work, normal urine test - Tests and Diagnostics: Normal CT scan with note of constipation Social History: - Employed: Recently attempted to return to work and had to leave early due to symptoms - Exercise: Not discussed - Nutritional Intake: Not discussed - Substance Use: Not discussed [facility] Medical History (Updated 01/17/25 @ 10:24 by Damon Bartlett MD) Lipoma Headache Hyperlipidemia Abdominal pain Family History Mother No problems noted. Father No problems noted. Social History Housing: House Patient Tobacco Use Status: Never used Tobacco e-Cigarette/Vaping Use: Never Used service: No Current occupational status: employed Cognitive needs: No Hearing needs: No Vision needs: No Questionnaire PHQ-9 Over the last 2 weeks, how often have you been bothered by any of the following problems? 1. Little interest or pleasure in doing things: not at all 2. Feeling down, depressed, or hopeless: not at all 3. Trouble falling or staying asleep, or sleeping too much: not at all 4. Feeling tired or having little energy: not at all 5. Poor appetite or overeating: not at all 6. Feeling bad about yourself - or that you are a failure or have let yourself or your family down: not at all 7. Trouble concentrating on things, such as reading the newspaper or watching television: not at all 8. Moving or speaking so slowly that other people could have noticed. Or the opposite - being so fidgety or restless that you have been moving around a lot more than usual: not at all 9. Thoughts that you would be better off or of hurting yourself in some way: not at all Total score: 0 Source: Developed by Drs. Gilbert Maynard, Anna Braxton, Luis Valle and colleagues, with an educational marquis from [employer]. Thrive Questionnaire Date Thrive assessed: 01/17/25 I am a: Patient Within the past 12 months, did the food you bought not last and you didn't have the money to get more?: Never true Within the past 12 months, did you worry whether your food would run out before you got money to buy more?: Never true Do you have trouble paying for medicines?: No Do you have trouble getting transportation to medical appointments?: No Do you have trouble paying your heating and electricity bill?: No Do you have trouble taking care of your child, family member or friend?: No Do you have trouble with day-to-day activities such as bathing, preparing meals, shopping, managing finances, etc.?: No Are you currently unemployed and looking for a job?: No Are you interested in more education?: No THRIVE Score: 0 AUDIT C Alcohol Use Questionnaire (AUDIT-C) 1. How often do you have a drink containing alcohol?: Never 3. How often do you have six or more drinks on one occasion?: Never Total Score: 0 LYNN-7 AMB Questionnaire LYNN-7 Date LYNN - 7 assessed: 01/17/25 Feeling nervous, anxious, or on edge: 0 = Not at all Not being able to stop or control worryin = Not at all Worrying too much about different things: 0 = Not at all Trouble relaxin = Not at all Being so restless that it is hard to sit still: 0 = Not at all Becoming easily annoyed or irritable: 0 = Not at all Feeling afraid as if something awful might happen: 0 = Not at all Total LYNN-7 score (0-4 normal; 5-9 mild; 10-14 moderate; 15-21 severe): 0 Source: Developed by Drs. Gilbert Maynard, Anna Braxton, Luis Valle and colleagues, with an educational marquis from [employer]. Review of Systems Const Details: - Gastrointestinal: Reports abdominal pain on left side; denies acid reflux, heartburn, and significant changes in bowel habits - Neurological: Reports headaches; denies visual changes, runny nose, vomiting - Genitourinary: Denies changes in bladder function aside from slower urination All systems reviewed & are unremarkable except as reviewed in HPI and above Physical exam (Primary Care) Vital Signs: Last Vital Signs Temp 97 F 01/17/25 10:05 Pulse 72 01/17/25 10:05 BP 132/80 01/17/25 10:05 Pulse Ox 98 01/17/25 10:05 Oxygen Delivery Method Room Air 01/17/25 10:05 BMI result Body Mass Index 24.5 Tobacco/Smoking Status: Tobacco use Status Tobacco use date assessed 01/17/25 01/17/25 08:36 Patient Tobacco Use Status Never used Tobacco 01/17/25 08:36 e-Cigarette/Vaping Use Never Used 01/17/25 08:36 PHQ-9: PHQ-9 Score PHQ-9: Total score 0 01/17/25 10:18 Thrive Assessment: Date of Thrive Assessment Date Thrive assessed 01/17/25 01/17/25 08:36 Const Other: General: +Alert and oriented, Well nourished, No acute distress. Eye: Pupils are equal, round and reactive to light, Intact accommodation, Extraocular movements are intact, Normal conjunctiva, Vision unchanged. HENT: Normocephalic, Atraumatic, Tympanic membranes are clear, Normal hearing, Oral mucosa is moist, No pharyngeal erythema, Ear canals patent. Respiratory: Lungs CTA bilaterally, No wheeze, Respirations are non-labored. Cardiovascular: Regular rate, Regular rhythm, S1 auscultated, S2 auscultated, No murmur, Good pulses equal in all extremities, Normal peripheral perfusion, No edema. Gastrointestinal: Soft, Non-tender, Non-distended, Normal bowel sounds, No organomegaly. Musculoskeletal: Normal range of motion, Normal strength, No tenderness, No swelling, No deformity, Normal gait. Integumentary: Warm, Dry, [place], Intact, Lipoma on left shoulder. Neurologic: Alert, Oriented, Normal sensory, Normal motor function, No focal defects, Cranial Nerves II-XII are grossly intact, Normal deep tendon reflexes. Psychiatric: Cooperative, Appropriate mood & affect, Normal judgment. Coding Level of Care Code Est Pt Level 4 (46220) Complex EM visit Add On G2211 Diagnoses Abdominal pain, unspecified abdominal location R10.9 Abdominal location: unspecified location Acute nonintractable headache, unspecified headache type R51.9 Headache type: unspecified Headache chronicity pattern: acute headache Intractability: not intractable Other hyperlipidemia E78.49 Hyperlipidemia type: other hyperlipidemia Lipoma of left upper extremity D17.22 Lipoma location: upper extremity Laterality: left Assessment & Plan Assessment & Plan (1) Abdominal pain: Comment: - Based on the normal CT scan and labs, constipation might be contributing to the abdominal pain. - Initiate MiraLax once daily in the morning to relieve constipation and ensure daily bowel movements. - Continue monitoring for any changes in symptoms. - Advise follow-up if symptoms persist or worsen for further evaluation. Code(s): R10.9 - Unspecified abdominal pain Category: Medical Qualifiers: Abdominal location: unspecified location Qualified Code(s): R10.9 - Unspecified abdominal pain (2) Headache: Comment: - Tylenol recommended for headache management as needed. - Possible association of headaches with constipation and poor rest. - Encourage adequate rest to alleviate headache symptoms. - Continue to monitor headache frequency and severity. Code(s): R51.9 - Headache, unspecified Category: Medical Qualifiers: Headache type: unspecified Headache chronicity pattern: acute headache Intractability: not intractable Qualified Code(s): R51.9 - Headache, unspecified (3) Hyperlipidemia: Comment: - Continue Atorvastatin 20mg QHS Code(s): E78.5 - Hyperlipidemia, unspecified Category: Medical Qualifiers: Hyperlipidemia type: other hyperlipidemia Qualified Code(s): E78.49 - Other hyperlipidemia (4) Lipoma: Comment: - Observation unless symptomatic. - Offer referral to chief bank examiner or surgeon for removal if desired. Code(s): D17.9 - Benign lipomatous neoplasm, unspecified Category: Medical Qualifiers: Lipoma location: upper extremity Laterality: left Qualified Code(s): D17.22 - Benign lipomatous neoplasm of skin and subcutaneous tissue of left arm Plan: Health Maintennace: - Maintain a healthy diet, avoid fatty foods. - Continue atorvastatin for cholesterol management. Patient was informed and verbally consented to the use of an ambient scribe for clinic note documentation during this visit. Plan The patient presented with complaints of abdominal pain and headaches. Diagnostic evaluations, including a CT scan and blood tests, were normal, with constipation being noted. A plan to treat the constipation using MiraLax was established, which may alleviate both abdominal pain and headaches. Tylenol is advised for management of headache. A lipoma was noted, and discussions regarding removal options took place. I emphasized the importance of adequate rest, a healthy diet, and regular follow-up to manage current symptoms effectively. Orders: Referrals General Surgery Referral D17.9 - Benign lipomatous neoplasm, unspecified Medications: New polyethylene glycol 3350 (Miralax) 17 grams PO DAILY 100 ea 0RF 100 days Patient Instructions: - Take MiraLax once daily to manage constipation. - Use Tylenol as needed for headache relief. - Get plenty of rest and ensure a healthy diet. - Avoid fatty foods. - Follow up if your symptoms persist or worsen. - Contact us if you decide to have the lipoma removed or if there are further concerns.
[2025-01-17 10:05] VITALS: BP 132/80; PULSE 72; TEMP 36.1; O2SAT 98; BMI 24.5
== END 2025-01-17 10:25 | disposition home or self-care (01) ==
LOC: HO.HMCHD 09:58
PROVIDERS: PCP Student in an Organized Health Care Education/Training Program; Visit Provider Student in an Organized Health Care Education/Training Program
DX: R10.9 Unspecified abdominal pain (principal); R51.9 Headache, unspecified; E78.49 Other hyperlipidemia; D17.22 Benign lipomatous neoplasm of skin and subcutaneous tissue of left arm

== ENCOUNTER 2025-02-01 13:50 | Outpatient (AMB) | payer OTHER, SELFPAY ==
--- OUTSIDE RECORDS SUMMARY | 2025-01-27 16:12 | XMS_ITS | Encounter Summary ---
Author Organization [facility] Address [address] [place] [address] Care Team Providers Care Foreclosure Paralegal Name Role Phone Damon Bartlett MD Primary Care Provider [phone] Reason for Visit * Reason Comments Hypertension * Auth/Cert (Routine) Specialty Diagnoses / Procedures Referred By Contac t Referred To Contact Diagnoses Abdominal pain Thrombosis of renal artery ([facility] V24) Hypertension, unspecified type Procedures . Narayan Taylor MD [address] [place] [address] Phone: tel: fax: [facility] [address] [place] [phone] Phone: tel: Referral ID Status Reason Start Date Expiration Date Visits Re quested Visits Authorized [id number] 1 1 Encounter Details Date Type Department Care Team (Latest Contact Info) Description 01/27/2025 4:12 PM EDT - 01/29/2025 4:49 PM EDT Hospital Encounter [facility] [address] [place] [phone] Kingsley Au MD [address] [place] [phone] Narayan Taylor MD [address] [place] [phone] Elayne Jonas MD [address] [place] [phone] Hypertension, unspecified type (Primary Dx); Thrombosis of renal artery (CMS/HCC V24) Discharge Disposition: Home or Self Care Social History Tobacco Use Types Packs/Day Years Used Date Smoking Tobacco: Every Day Cigarettes Smokeless Tobacco: Never Tobacco Cessation:Ready to Q uit: Not Asked; Counseling Given: Not Answered Housing Instability Answer Date Recorde d Are you worried that in the next 2 months you may not have stable housing? No 01/27/2025 Food Access & Nutrition Answer Date Rec orded Do you have access to a vari ety of food including fruits and vegetables? No 01/27/2025 Access to Healthcare Answer Date Record ed Within the last 3 months, ho w many times did you visit the emergency department for your medical care? 3 01/27/2025 Health Literacy Answer Date Recorded How often do you need to hav e someone help you when you read instructions, pamphlets, or other written material from your doctor or pharmacy? Never 01/27/2025 Caregiver: How often do you need to have someone help you when you read instructions, pamphlets, or other written material from your doctor or pharmacy? Not on file 01/27/2025 Financial Risk Answer Date Recorded How hard is it for you to pa y for the very basics like food, housing, medical care, and air conditioning / heating? Somewhat hard 01/27/2025 Transportation Answer Date Recorded Has the lack of transportati on kept you from meetings, work, or from getting things needed for daily living? No Has the lack of transportati on kept you from medical appointments or from getting medications? No 01/27/2025 Social Isolation Answer Date Recorded How often do you feel lonely or isolated from th ose around you? Never 01/27/2025 Food Risk Answer Date Recorded Within the past 12 months we worried whether our food would run out before we got money to buy more. Never true 01/27/2025 Within the past 12 months th e food we bought just didn't last and we didn't have money to get more. Never true 01/27/2025 Dependent Care Answer Date Recorded Do you need help finding or paying for care for your loved ones. For example, childbirth educator or elderly care for an older adult? No 01/27/2025 Education Answer Date Recorded Do you think completing more education or training, like finishing a GED, going to college, or learning a trade, would be helpful for you? N/A 01/27/2025 Employment and Income Answer Date Recor ded During the last four weeks, have you been actively looking for work? No 01/27/2025 Living Situation Answer Date Recorded What is your living situation? Unrecognized valu e 01/27/2025 Interpersonal Safety Answer Date Record ed Physical Abuse Unrecognized value 01/27/2025 Verbal Abuse Unrecognized value 01/27/2025 Sex and Gender Information Value Date Recorded Sex Assigned at Not on file Legal Sex Male 1:24 PM EDT Gender Identity Not on file Sexual Orientation Not on file documented as of this encounter Last Filed Vital Signs Vital Sign Reading Time Taken Comments Blood Pressure 141/100 01/29/2025 3:25 PM EDT Pulse 111 01/29/2025 3:25 PM EDT Temperature 36.9 C (98.4 F) 01/29/2025 3:25 PM EDT Respiratory Rate 16 01/29/2025 3:25 PM EDT Oxygen Saturation 100% 01/29/2025 3:25 PM EDT Inhaled Oxygen Concentration - - Weight 157 kg (345 lb 3.9 oz) 01/27/2025 11:14 P M EDT Height 175.3 cm (5' 9 ) 01/27/2025 2:33 PM EDT Body Mass Index 50.98 01/27/2025 2:33 PM EDT documented in this encounter Functional Status * Calculated C-SSRS Risk Score (Lifetime/Recent) Answer Date of Assessment Author No Risk Indicated 01/27/2025 2:35 PM EDT Billie Chang RN * [place] Suicide Severity Rating Scale (Screener/Recent Self-Report) Question Answer Date of Assessment Author 1. Wish to be (Past 1 Month) No 025 2:35 PM EDT Billie May RN 2. Non-Specific Active Suici ruddy Thoughts (Past 1 Month) No 01/27/2025 2:35 PM EDT Duran May RN 6. Suicidal Behavior (Lifetime) No 2:35 PM EDT Billie May RN documented as of this encounter Discharge Summaries * Elayne Jonas MD - 01/29/2025 9:19 AM EDT DISCHARGE SUMMARY Patient Information Ventura Kwan : 1985 [39 y.o.] Admitting Provider Narayan Taylor MD Discharge Provider Elayne Jonas MD, Elayne Jonas MD Primary Care Physician Damon Bartlett MD Admission Date 01/27/2025 Discharge Date 01/29/2025 Discharge disposition- Home Summary of Hospital Problems Primary Discharge Diagnosis: Acute renal artery thrombosis Hypertensive urgency Hospital Course Summary Admission HPI from H&P per admitting physician/EDD- This is a 39-year-old male with a past medical history significant for hypertension, hyperlipidemia who presents to the emergency department today for an evaluation of bilateral upper extremity pain, headache and high blood pressure. Upon assessment of patient, he is observed laying in the stretcher, his is present at bedside. Patient reports that he was recently diagnosed with hypertension around a week ago. He reports thatinitially it started with a headache, patient reports that he went to [facility] and had a CT head without which was negative for acute findings and was sent home with amlodipine as wellas cyclobenzaprine. Patient reports that he continued to check his blood pressure as directed and it remained elevated, he went to urgent care and they directed him back to the emergency department. Patient also reports that he has had left lower quadrant pain intermittently ongoing for the past 8 months. Patient reports that he thought this is secondary to atorvastatin use as he read it could cause myalgias and abdominal pain so he stopped taking it. Patient is currently denying left lower quadrant abdominal pain at this time. Patient reports a possible history of blood clots in his fatherhowever he is unsure. He denies a personal history of clots. Patient denies worsening headaches since last CT scan was obtained. Per patient report, he was recently evaluated at [facility] on Thursday 01/25 and wasdiagnosed with hypertension, patient was prescribed amlodipine and reportedly took his medications today. CT angio chest/abdomen/pelvis without and/or with: 1. 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 Very mild relative diminished enhancement of portions of the left kidney. 2. No aortic aneurysm or dissection. 3. No pulmonary artery embolism. Initial laboratory results: CMP reveals sodium 131, chloride 94, glucose 105, total protein 8.1. CBC reveals wbc 11.5, In the emergency department the above was performed and patient received 25 mg oral hydroxyzine, a total of 30 mg IV labetalol and was started on a heparin drip per PE/DVT protocol. The decision was made to admit patient for medical management. Zora Pfeiffer NP Brief Hospital course 39-year-old male with history of newly diagnosed hypertension with ongoing headaches and hyperlipidemia presented with bilateral upper extremity pain, headache, elevated blood pressure and ongoing abdominal pain for 8 months. He was found to have acute renal thrombosis along with hypertensive urgency, started on heparin drip, vascular surgery consulted who recommended no acute interventions and outpatient follow-up in [address] abdomen. Patient was transition from heparin drip to Eliquis starting dose. Blood pressure has been elevated since admission, being managed with L[employer] amlodipine and as needed hydralazine for SBP more than 150. He was eventually discharged on L[employer] amlodipine and losartan 12.5 mg daily. Physical Exam at time of Discharge Temp (24hrs), Av.6 ??C (97.8 ??F), Min:36.3 ??C (97.3 ??F), Max:37.2 ??C (99 ??F) Body mass index is 50.98 kg/m??. No results found for: PTWT , PTHT Physical Exam General-patient appears comfortable, no acute distress HEENT-NCAT Eyes-anicteric Heart-Normal Rate and Rhythm Respiratory-CTAB Abdomen-Soft, nontender, nondistended Extremity-no significant lower extremity edema Neurology-awake alert oriented to time, place,and person Psych- Normal Mood and affect Skin-warm and dry Follow-Up Instructions and Recommendations -Outpatient follow-up with vascular surgery in 3 months with repeat CAT scan. - Patient to continue at least 6 months of anticoagulation, pending outpatient hypercoagulability workup. - Follow-up with hypercoagulable workup outpatient. - Continue to adjust antihypertensives as required. Discharge Medications Your medication list START taking these medications Instructions Last Dose Given Next Dose Due apixaban 5 mg tablet Commonly known as: ELIQUIS Start taking on: January 29, 2025 Take 2 tablets (10 mg total) by mouth 2 (two) times a day for 7 days, THEN 1 tablet (5 mg total) 2 (two) times a day. losartan 25 mg tablet Commonly known as: COZAAR Start taking on: January 30, 2025 Take 0.5 tablets (12.5 mg total) by mouth 1 (one) time each day. CONTINUE taking these medications Instructions Last Dose Given Next Dose Due amLODIPine 10 mg tablet Commonly known as: NORVASC Take 1 tablet (10 mg total) by mouth 1 (one) time each day. atorvastatin 20 mg tablet Commonly known as: LIPITOR Take 1 tablet (20 mg total) by mouth at bedtime. at bedtime Where to Get Your Medications These medications were sent to [facility]/pharmacy #[id number] - [place], [place] - [address] [address] apixaban 5 mg tablet losartan 25 mg tablet Lab Results Component Value Date GLUCOSE 99 01/29/2025 CALCIUM 9.4 01/29/2025 NA 133 01/29/2025 K 4.0 01/29/2025 CO2 31 01/29/2025 CL 96 01/29/2025 BUN 14 01/29/2025 CREATININE 0.70 01/29/2025 Lab Results Component Value Date WBC 10.6 01/29/2025 HGB 15.5 01/29/2025 HCT 46.6 01/29/2025 MCV 79.0 01/29/2025 PLT 358 01/29/2025 CT Venogram Head wo and/or w Contrast Result Date: 01/28/2025 PROCEDURE: Head CT and CT venogram. HISTORY: Headache, HTN urgency, thrombus r/o. COMPARISON: None.TECHNIQUE: Noncontrast head CT with coronal and sagittal reformats followed by a contrast enhanced CT venogram. IV contrast dose: 90 mL ISOVUE. Dose length product: mGy-cm. FINDINGS: Brain: No hemorrhage, edema, mass, or extra-axial fluid collection. No CT evidence of an acute large vessel infarct.Ventricles and sulci are age commensurate. No abnormal enhancement. CT venogram: The dural venous sinuses are patent. The left transverse and sigmoid sinus are small in caliber. There is no evidence of a dural venous sinus stenosis. 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 Sinuses/mastoids: Normal. Orbits: Normal. Calvarium: Normal. Other: The skull base soft tissues are normal. Normal head CT. Normal CT venogram. -------- FINAL REPORT -------- Dictated By: Srinivasa Stovall Dictated Date: 01/28/2025 09:42 ET Assigned Physician: Srinivasa Stovall Reviewed and Electronically Signed By: Srinivasa Stovall Signed Date: 01/28/2025 09:46 ET Workstation ID: [id number] Transcribed By: Self Edit Transcribed Date: 01/28/2025 09:[address] Angio Chest/Abdomen/Pelvis wo and/or w Contrast Addendum Date: 01/27/2025 ADDENDUM: This report was discussed with KINGSLEY AU MD on Jan 27, 2025 19:44:00 EDT. This document has been electronically signed by: Veronique Zazueta on 01/27/2025 19:45:11 Result Date: 01/27/2025 INDICATION: tachycardia, significnat hypertension, pain in arms CT angiography chest, abdomen and pelvis with contrast. 3-D postprocessing. Comparison: None provided Findings: There is a thrombus or embolus within the left renal artery beginning 2.3 cm from its origin and extending over 7 mm of itslength (series 3 images [phone] ). This is nearly completely occlusive. Additional thrombus or embolus within a segmental branch of the left renal artery resulting in occlusion extending over 1.3 cm of the length of the artery ( series 3 images 525- [phone] ). Additional major branches of the abdominalaorta are widely patent. No additional thrombus or embolus. No additional focus of occlusion or stenosis. The visualized great vessels are unremarkable. The aorta is normal caliber. No aneurysm or dissection. The visualized thyroid and mediastinum are unremarkable. The heart is normal size. The lungs are clear. There is very mild relative degree of enhancement of portions of the left kidney. No mar infarct. A small scar is present within the right kidney. No hydronephrosis. Remaining abdominal organs are unremarkable. There has been a prior cholecystectomy. No bowel obstruction, pneumoperitoneum, or pneumatosis. Pelvic contents unremarkable. Normal appendix. No acute fractures. 1. 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 Very mild relative diminished enhancement of portions of the left kidney. 2. No aortic aneurysm or dissection. 3. No pulmonary artery embolism. This document has been electronically signed by:Pau Joel MD on 01/27/2025 19:41:16 About 35 minutes spent independently today in discharge process for this patient including but not limited to chart review, clinical decision making, care coordination. documented in this encounter Discharge Instructions * Discharge Instructions* Elayne Jonas MD - 01/29/2025 9:19 AM EDT - Continue to take Eliquis as prescribed. You will need at least 6 months of anticoagulation - Add losartan to your amlodipine regimen as prescribed. Follow-up with PCP regarding further management of blood pressure going forward. - Follow-up with vascular surgery outpatient in [address] abdomen. documented in this encounter Medications at Time of Discharge amLODIPine (NORVASC) 10 mg tablet Take 1 tablet (10 mg total) by mouth 1 (one) time each day. 01/25/2025 apixaban (ELIQUIS) 5 mg tablet Take 2 tablets (10 mg total) by mouth 2 (two) times a day for 7 days, THEN 1 tablet (5 mg total) 2 (two) times a day. 88 each 01/29/2025 03/07/2025 atorvastatin (LIPITOR) 20 mg tablet Take 1 tablet (20 mg total) by mouth at bedtime. at bedtime 11/08/2024 losartan (COZAAR) 25 mg tablet Take 0.5 tablets (12.5 mg total) by mouth 1 (one) time each day. 15 each 01/30/2025 01/30/2026 documented as of this encounter Ordered Prescriptions Prescription Sig Dispense Quantity Refills Last Filled Start Date End Date losartan (COZAAR) 25 mg tablet Take 0.5 tablets (12.5 mg total) by mouth 1 (one) time each day. 15 each 11 01/30/2025 apixaban (ELIQUIS) 5 mg tablet Take 2 tablets (10 mg total) by mouth 2 (two) times a day for 7 days, THEN 1 tablet (5 mg total) 2 (two) times a day. 88 each 01/29/2025 documented in this encounter Discharge Disposition Disposition Code Departure Means Destination Home or Self Care documented in this encounter Progress Notes * Rupali Padron RN - 01/29/2025 10:35 AM EDT 01/29/25 1035 Medication Coverage Has Med Coverage Under Insurance Plan Yes Medication Affordability No concerns related to payment for meds Transportation Transportation at discharge Family What day is the transport expected? 01/29/25 Final Discharge Disposition Home or Self Care * Ct Issa RN - 01/28/2025 3:32 PM EDT 01/28/25 1532 Initial Transition Plan Initial Transition Plan Home Discharge Planning Living Arrangements Spouse/significant other;Children Type of Residence Private residence Assistive Devices None Support Systems Spouse/significant other;Children;Immediate family Medication Coverage Has Med Coverage Under Insurance Plan Yes Medication Affordability No concerns related to payment for meds Anticipated Discharge Needs Discipline following for SNF placement Software Consultant Informed Choice Informed Choice Given? Yes Transportation Transportation at discharge Family * Elayne Jonas MD - 01/28/2025 9:10 AM EDT Images from the original note were not included. [facility]ITE PROGRESS NOTE Date: 01/28/2025 Author: Elayne Jonas MD Patient ID: Ventura Kwan is a 39 y.o. male : 1985 MR#: [id number] SUBJECTIVE Subjective Patient seen at bedside this morning. Head CT normal, his headache has resolved. Blood pressure still remains on the higher side. L[employer] amlodipine resumed and if he continues to be hypertensive, will require additional medications. Currently blood pressure stable around 150-160. Await vascular surgery evaluation. Will replete potassium. Patient remains tachycardic with worsening leukocytosis although no fever, lactic acidosis unremarkable. Objective Allergy- Patient has no known allergies. OBJECTIVE Vitals: 01/27/25 2141 01/27/25 2314 01/28/25 0517 01/28/25 0728 BP: (!) 142/109 (!) 147/99 (!) 165/116 (!) 163/110 BP Location: Right arm;Upper Right arm Right arm Patient Position: Sitting Lying Lying Pulse: 100 105 107 (!) 119 Resp: 16 18 18 16 Temp: 37.2 ??C (99 ??F) 36.9 ??C (98.4 ??F) 36.9 ??C (98.4 ??F) 36.1 ??C (97 ??F) TempSrc: Oral Oral Temporal SpO2: 97% 99% 99% 100% Weight: 157 kg (345 lb 3.9 oz) Height: Temp (24hrs), Av.7 ??C (98.1 ??F), Min:36.1 ??C (97 ??F), Max:37.2 ??C (99 ??F) Physical Exam General-patient appears comfortable, no acute distress HEENT-NCAT Eyes-anicteric Heart-Normal Rate and Rhythm Respiratory-CTAB Abdomen-Soft, nontender, nondistended Extremity-no significant lower extremity edema Neurology-awake alert oriented to time, place,and person Psych- Normal Mood and affect Skin-warm and dry Lab Results: CBC BMP Results from last 7 days Lab Units 01/27/25 1657 WBC AUTO K/mcL 11.5* HEMOGLOBIN g/dL 16.3 HEMATOCRIT % 47.3 PLATELETS K/mcL 373 LYMPHS PCT AUTO % 11.6 MONO PCT AUTO % 9.2 EOS PCT AUTO % 0.3 Results from last 7 days Lab Units 01/27/25 1657 SODIUM mmol/L 131* POTASSIUM mmol/L 3.8 CHLORIDE mmol/L 94* CO2 mmol/L 31 ANION GAP 6 BUN mg/dL 17 CREATININE mg/dL 0.82 CALCIUM mg/dL 10.1 MAGNESIUM mg/dL 2.3 Results from last 7 days Lab Units 01/27/25 1657 GLUCOSE mg/dL 105* Results from last 7 days Lab Units 01/27/25 1657 AST unit/L 17 ALT unit/L 22 Scheduled Medications PRN Medications IV Medications acetaminophen, 650 mg, q6h PRN heparin, 80 Units/kg, q6h PRN Or heparin, 40 Units/kg, q6h PRN hydrALAZINE, 10 mg, q6h PRN ondansetron, 4 mg, q8h PRN heparin, Last Rate: 17 Units/kg/hr (01/28/25 0532) ASSESSMENT & PLAN Assessment/Plan Principal Problem: Abdominal pain No problem-specific Assessment & Plan notes found for this encounter. 39-year-old male with history of newly diagnosed hypertension with ongoing headaches and hyperlipidemia presented with bilateral upper extremity pain, headache, elevated blood pressure and ongoing abdominal pain for 8 months. He was found to have acute renal thrombosis along with hypertensive urgency, started on heparin drip, vascular surgery consulted. Blood pressure has been elevated since admission, being managed with LIVE[employer] amlodipine and as needed hydralazine for SBP more than 150. Acute renal artery thrombosis - CAT scan with thrombi/emboli involving the left main renal artery and segmental branch of the left renal artery, started on heparin drip as per DVT/PE protocol. - Vascular surgery consulted, Hypertensive urgency Headaches - Was started on amlodipine about a week ago, continue with PT amlodipine. Continue with hydralazine for as needed SBP more than 150. - Headache suspected likely in setting of hypertensive urgency, recent CT head unremarkable for anyacute bleed, obtain CT with and without contrast due to newly found thrombus. Bilateral upper extremity myalgias -? Due to use of atorvastatin, CK within normal limit, he stopped taking the medication couple of days ago. Will continue to monitor. Chronic conditions: - Hyperlipidemia: Stop atorvastatin couple of days ago as mentioned above, continue to hold. - Constipation: Patient takes Gavilax daily, reports increased constipation recently, started on MiraLAX twice daily. VTE Prophylaxis: Heparin Diet: Regular Resuscitation: Full code Discharge barrier-heparin drip, vascular surgery evaluation, pending head CT All labs, imaging, relevant history personally reviewed by me. Please be aware that the above note was completed using voice recognition software. If you have anyquestions please contact the author of this note for clarification. * Arminda Winter RN - 01/27/2025 10:10 PM EDT ED RN HANDOFF (All Prabhakar Below Must Be Completed) Reason/Diagnosis for Admission: Renal artery thrombosis Type of Admission: [] Medsurg, [x] Telemetry Already in a Hospital Bed: [] Yes / [x] No Room Considerations/Precautions (ex: fever, diarrhea, or any infectious concerns): [] Yes / [x] No [employer]: [x] Yes / [] No If YES, Cardiac Rhythm: [] NSR, [] SB, [x] ST, [] A-FIB, [] A-Flutter, [] Pacemaker, [] 1st Degree HB, [] 2nd Degree HB, [] 3rd Degree HB Reason for [employer]: VS: Visit Vitals BP (!) 142/109 (BP Location: Right arm;Upper, Patient Position: Sitting) Pulse 100 Temp 37.2 ??C (99 ??F) (Oral) Resp 16 Ht 1.753 m (69 ) Wt 70.4 kg (155 lb 3.2 oz) SpO2 97% BMI 22.92 kg/m?? Smoking Status Every Day BSA 1.85 m?? Current Mental Status: A/O x [x]4, []3, []2, []1 Current Ambulation Status: Independent IV Access: [x] Yes / [] No Field IV present: [] Yes / [x] No Hx of Violence: [] Yes / [x] No / [] Unknown Fall Risk:[] Yes / [x] No Yellow Bracelet Applied [] Yes / [] No Yellow Socks Applied [] Yes / [] No Patient Belongings inventoried and BL completed: [] Yes / [] No Patient belongings stored in the security closet: [] Yes (If Yes please supply Security bag #): [] No Patient Medications stored in Pharmacy: [] Yes (If Yes please supply Medication Security bag #): [x] No ED Summary of Care: Pt to ED with c/o HTN. Seen at [facility] on 01/25 and started on amlodipine- head CT negative at that time. HR 130s on arrival with BP 140s/110s- labetalol given. CT abd with left renalthrombosis- heparin gtt started- Xa due at 0230. NPO at midnight for vasc surg consult. Ct head to be completed after 1am as pt had IV contrast earlier in the evening. Submitted by and Phone Extension: * Billie May RN - 01/27/2025 2:34 PM EDT Pt also adds some abd cramping, feels like he needs to have diarrhea. Reports small amount earlier today. * Billie May RN - 01/27/2025 2:22 PM EDT Pt reports having high blood pressure. Was recently at [facility] for BP on Thursday. Was d/c home with BP med. Pt states that he has been taking the prescribed amlodipine, taking is as prescribed, took dose today. Continues to have high blood pressure. Pt reports readings for his 156/118, as high as 200s systolic. Reports pain in both arms and headache. Denies vision changes. * Kingsley Au MD - 01/27/2025 2:20 PM EDTAssociated Order(s): Critical Care HPI Chief Complaint Patient presents with Hypertension Patient is a 39-year-old male with a history of hypertension, hyperlipidemia who is presenting to the ER with hypertension, abdominal pain and arm pain. Patient states for the last week he has had uncontrolled hypertension. He has been having abdominal cramping particularly on the left side for some time.. No nausea/vomiting, diarrhea, urinary complaints. No chest pain, shortness of breath. He was initially seen at [facility] a week ago where they did a workup including imaging which was unremarkable. He was then seen at [facility] several days ago for the continued hypertension and headaches for which he was started on amlodipine which he has been taking after he had a negative head CT there. He has continued to have elevated blood pressures, abdominal cramping and pain in bilateral arms. He went to an urgent care today who sent him to the ER for further evaluation. Saul Coma Scale Score: 15 Patient History Medical History[1] Surgical History[2] Family History[3] Social History Tobacco Use Smoking status: Every Day Types: Cigarettes Smokeless tobacco: Never Substance Use Topics Alcohol use: Not on file Drug use: Not on file Review of Systems Review of Systems Constitutional: Negative for chills and fever. Respiratory: Negative for cough and shortness of breath. Cardiovascular: Negative for chest pain, palpitations and leg swelling. Gastrointestinal: Positive for abdominal pain. Negative for diarrhea, nausea and vomiting. Musculoskeletal: Negative for back pain and neck pain. Neurological: Negative for syncope, weakness, light-headedness and numbness. Physical Exam ED Triage Vitals [01/27/25 1433] Temp Heart Rate Resp BP 36.8 ??C (98.2 ??F) (!) 132 18 (!) 148/107 SpO2 Temp Source Heart Rate Source Patient Position 98 % Oral Monitor Sitting BP Location FiO2 (%) Right arm -- Physical Exam Vitals and nursing note reviewed. Constitutional: Appearance: He is normal weight. He is not ill-appearing or toxic-appearing. HENT: Head: Normocephalic and atraumatic. Right Ear: External ear normal. Left Ear: External ear normal. Nose: Nose normal. Mouth/Throat: Mouth: Mucous membranes are moist. Eyes: General: No scleral icterus. Extraocular Movements: Extraocular movements intact. Conjunctiva/sclera: Conjunctivae normal. Cardiovascular: Rate and Rhythm: Regular rhythm. Tachycardia present. Pulses: Normal pulses. Pulmonary: Effort: Pulmonary effort is normal. Breath sounds: Normal breath sounds. Abdominal: General: Abdomen is flat. Bowel sounds are normal. Tenderness: There is no abdominal tenderness. There is no right CVA tenderness, left CVA tenderness, guarding or rebound. Musculoskeletal: Right lower leg: No edema. Left lower leg: No edema. Skin: General: Skin is warm and dry. Capillary Refill: Capillary refill takes less than 2 seconds. Coloration: Skin is not jaundiced or pale. Findings: No rash. Neurological: General: No focal deficit present. Mental Status: He is alert and oriented to person, place, and time. Psychiatric: Mood and Affect: Mood normal. Behavior: Behavior normal. ED Course & MDM ED Course as of 01/28/25 0757 ThuJan 27, 2025 174 Heart Rate: 101 improved [CL] 174 BP(!): 149/111 stable [CL] 1747 CBC and differential(!) Mild nonspecific leukocytosis [CL] 1801 INR: 1.1 [CL] 1832 Comprehensive Metabolic Panel (CMP)(!) Mild hyponatremia noted [CL] 1832 High Sensitivity Troponin I: 17 [CL] 1832 Lipase: 22 [CL] 1832 Magnesium: 2.3 [CL] 1833 B Type Natriuretic Peptide: 14 [CL] 1944 CT Angio Chest/Abdomen/Pelvis wo and/or w Contrast IMPRESSION: 1. 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 Very mild relative diminished enhancement of portions of the left kidney. 2. No aortic aneurysm or dissection. 3. No pulmonary artery embolism. [CL] 2037 Given left main room renal artery thrombi, patient was started on anticoagulation with a heparin drip. Case was discussed with vascular surgery who agrees with anticoagulation and recommends admission for hypercoagulable workup and echocardiogram. Patient accepted for admission by Dr. Taylor [CL] ED Course User Index [CL] Kingsley Au MD Clinical Impressions as of 01/28/25756 Hypertension, unspecified type Thrombosis of renal artery ([facility] V24) Medical Decision Making Patient presenting the ER with persistent hypertension with hypertension in the 140s to 170s systolics over 100s to 110s diastolic here with a sinus tachycardia in the 110s to 120s. He is complainingof abdominal pain as well as bilateral arm pain. This raises concern for possible aortic pathology for which we will proceed with CT angio of the chest abdomen and pelvis. Will obtain an EKG and troponin, CMP to further assess for hypertensive emergency and ACS. Will treat his blood pressure and tachycardia with labetalol. Critical Care Performed by: Kingsley Au MD Authorized by: Kingsley Au MD Critical care provider statement: Critical care time (minutes): 40 Total face to face critical care time (minutes): 25 Critical care time was exclusive of: Separately billable procedures and treating other patients Critical care was necessary to treat or prevent imminent or life-threatening deterioration of the following conditions: Circulatory failure and renal failure Critical care was time spent personally by me on the following activities: Development of treatmentplan with patient or surrogate, discussions with consultants, evaluation of patient's response to treatment, ordering and review of laboratory studies, ordering and review of radiographic studies, re- evaluation of patient's condition, review of old charts, ordering and performing treatments and interventions and examination of patient Face to face critical care was time spent personally by me on the following activities: Examinationof patient, obtaining history from patient or surrogate and development of treatment plan with patient or surrogate I assumed direction of critical care for this patient from another provider in my specialty: no Care discussed with: admitting provider Comments: Hypertension requiring multiple doses of IV labetalol 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 requiring IV heparin and consultation with vascular surgery Kingsley Au MD 01/27/251999 Kingsley Au MD 01/27/252011 [1] Past Medical History: Diagnosis Date HLD (hyperlipidemia) Hypertension [2] History reviewed. No pertinent surgical history. [3] No family history on file. Kingsley Au MD 01/28/25 0757 documented in this encounter Consult Notes * Yosi Roberts MD - 01/27/2025 9:53 PM EDTAssociated Order(s): IP CONSULT TO VASCULAR SURGERY Images from the original note were not included. VASCULAR SURGERY CONSULTATION PATIENT: Ventura Kwan ENCOUNTER: 01/27/2025 EMRN: [id number] : 1985 PCP: Damon Bartlett MD CHIEF COMPLAINT: Hypertension HPI: Patient is a 39 y.o. male with past medical history significant for hypertension, hyperlipidemia who presents to the emergency department today for an evaluation of bilateral upper extremitypain, headache and high blood pressure. Patient reports that he was recently diagnosed with hypertension after going to [facility] with a headache. CT head was negative for acute findings and was sent home with amlodipine as well as cyclobenzaprine. Blood pressure has remained elevatedon home monitoring. He went to urgent care and returned to the emergency department. Patient currently denies any back or abdominal pain. He discontinued his statin because of his belief that it was a ssociated with his myalgias and abdominal pain. Patient underwent CT angio chest/abdomen/pelvis without and/or with IV contrast and was found to have thrombi or emboli involving the left main renal artery and a segmental branch of the left renal artery. Very mild relative diminished enhancement of portions of the left kidney. The remainder of the CT was unremarkable. See findings below. Vascular surgery was consulted. We recommended initiationof anticoagulation and completion of workup which should include echocardiogram, inpatient monitoring and outpatient hypercoagulable workup. Initial laboratory results were unremarkable. The was anticoagulated via VTE protocol, given antihypertensive medications and admitted to [place] for medical management. Medical History[1] Surgical History[2] Current Medications[3] Allergies[4] Social History Tobacco Use Smoking status: Every Day Types: Cigarettes Smokeless tobacco: Never Substance Use Topics Alcohol use: Not on file Family History[5] ROS: GENERAL: No malaise, significant weight loss or fever NECK: No lumps, goiter, pain or significant neck swelling RESPIRATORY: No cough, wheezing or shortness of breath CARDIAC: No chest pain or palpitations GI: No abdominal discomfort MUSCULOSKELETAL: SEE HPI SKIN: No lesions, rash or itching NEURO: No persistent headache, syncope, seizures, weakness or numbness VASCULAR: SEE HPI Objective No intake/output data recorded. No intake/output data recorded. Vitals: 01/27/25200701/27/25201501/27/25202001/27/25 2141 BP: (!) 151/105 104/60 (!) 142/109 BP Location: Right arm;Upper Right arm;Upper Right arm;Upper Patient Position: Sitting Sitting Sitting Pulse: (!) 120 92 100 Resp: 16 17 16 Temp: 37.2 ??C (99 ??F) TempSrc: Oral SpO2: 98% 98% 97% Weight: 70.4 kg (155 lb 3.2 oz) Height: General: Alert and oriented x 3, no acute distress, well-nourished HEENT: Normocephalic atraumatic Neck: No JVD, no carotid bruit, carotid pulses present Chest: Respiratory effort normal Cardiac: Regular rate rhythm Abdomen: Soft, nontender, nondistended, no widened aortic pulse Extremities: -Right upper extremity: 2+ radial artery pulses palpable. -Left upper extremity: 2+ radial artery pulses palpable. -Right lower extremity: 2+ femoral artery pulse palpable. No palpable popliteal artery pulse. 2+ DPand PT pulses palpable. No ulcers or gangrene. No varicosities. No hyperpigmentation. No indurationor inflammation. No foot or ankle edema. -Left lower extremity: 2+ femoral artery pulse palpable. No palpable popliteal artery pulse. 2+ DP and PT pulses palpable. No ulcers or gangrene. No varicosities. No hyperpigmentation. No induration or inflammation. No foot or ankle edema. Integumentary: No wounds Lymphatics: No lymphadenopathy Neuro: Grossly intact RESULTS: CBC Lab Results Component Value Date WBC 11.5 (H) 01/27/2025 HGB 16.3 01/27/2025 HCT 47.3 01/27/2025 MCV 77.8 (L) 01/27/2025 PLT 373 01/27/2025 LYMPHOPCT 11.6 01/27/2025 MONOPCT 9.2 01/27/2025 EOSPCT 0.3 01/27/2025 Electrolytes Lab Results Component Value Date NA 131 (L) 01/27/2025 K 3.8 01/27/2025 CL 94 (L) 01/27/2025 BUN 17 01/27/2025 CREATININE 0.82 01/27/2025 EGFR 114 01/27/2025 GLUCOSE 105 (H) 01/27/2025 CALCIUM 10.1 01/27/2025 Lab Results Component Value Date MG 2.3 01/27/2025 IMAGING: Ventura Eid Procedures: CT Angio Chest/Abdomen/Pelvis wo and/or w Contrast Accession Number: [id number] Date of Study: 01/27/2025 Ordering Provider: Kingsley Au MD Clinical Indications: tachycardia, significnat hypertension, pain in arms, tachycardia, significnathypertension, pain in arms Reading Physicians Performing Staff Pau Mosqueda MD Tech: Alex Abbasi Deskidding Machine Operator: Yanira Mireles Patient Information Patient Name Ventura Kwan Legal Sex Male (39 y.o.) PACS Images Show images for CT Angio Chest/Abdomen/Pelvis wo and/or w Contrast Diagnosis Priority: STAT Hypertension, unspecified type [I10 (ICD-10-CM)] Performing Physician Performing Physician/Midlevel: None Amended Report Interpretation Summary Addendum by Pau Mosqueda MD on ThuJan 27, 2025 7:45 PM ADDENDUM: This report was discussed with KINGSLEY AU MD on Jan 27, 2025 19:44:00 EDT. This document has been electronically signed by: Veronique Zazueta on 01/27/2025 19:45:11 Finalized by Pau Mosqueda MD on ThuJan 27, 2025 7:41 PM INDICATION: tachycardia, significnat hypertension, pain in arms CT angiography chest, abdomen and pelvis with contrast. 3-D postprocessing. Comparison: None provided Findings: There is a thrombus or embolus within the left renal artery beginning 2.3 cm from its origin and extending over 7 mm of its length (series 3 images 522 531 ). This is nearly completely occlusive. Additional thrombus or embolus within a segmental branch of the left renal artery resulting in occlusion extending over 1.3 cm of the length of the artery ( series 3 images 525- 539 ). Additional major branches of the abdominal aorta are widely patent. No additional thrombus or embolus. No additional focus of occlusion or stenosis. The visualized great vessels are unremarkable. The aorta is normal caliber. No aneurysm or dissection. The visualized thyroid and mediastinum are unremarkable. The heart is normal size. The lungs are clear. There is very mild relative degree of enhancement of portions of the left kidney. No mar infarct. A small scar is present within the right kidney. No hydronephrosis. Remaining abdominal organs are unremarkable. There has been a prior cholecystectomy. No bowel obstruction, pneumoperitoneum, or pneumatosis. Pelvic contents unremarkable. Normal appendix. No acute fractures. IMPRESSION: 1. 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 Very mild relative diminished enhancement of portions of the left kidney. 2. No aortic aneurysm or dissection. 3. No pulmonary artery embolism. This document has been electronically signed by: Pau Joel MD on 01/27/2025 19:41:16 All images were personally reviewed. ASSESSMENT: 1. Hypertension, unspecified type 2. Thrombosis of renal artery (CMS/HCC V24) RECOMMENDATIONS: 39 y.o. male admitted with left renal artery focal thrombus versus plaque with occlusion of a branch of the left renal artery. Patient has associated hypertension which may be renovascular in origin however this is unclear at this time. There is a flow channel through the more proximal thrombus/plaque. No vascular intervention is warranted at this time other than medical management with anticoagulation. Patient will require repeat CTA of the abdomen and pelvis in 3 months to see if renal arteryrecanalizes. If renal recanalizes then this is more likely to represent thromboembolism versus plaque. CTA images show no possible embolic source from the arch of the aorta or descending thoracic aorta. Patient will require further workup with echocardiogram which anticipate will likely be negative. Furthermore he will also require outpatient hypercoagulable workup which should be deferred to hematology. Plan: - Anticoagulation for 6 months minimum - Outpatient hypercoagulable workup - No vascular intervention at this time - Medical management per [place] - Follow-up in 3 months in my office with CTA abdomen and pelvis. I spent 65 minutes in an encounter with this patient, including time spent with patient, chart review, reviewing diagnostic studies, and documentation. High complexity decision making. [1] Past Medical History: Diagnosis Date HLD (hyperlipidemia) Hypertension [2] History reviewed. No pertinent surgical history. [3] Current Facility-Administered Medications Medication Dose Route Frequency Provider Last Rate Last Admin acetaminophen (TYLENOL) tablet 1,000 mg 1,000 mg oral Once Zora Pfeiffer NP [START ON 01/28/2025] acetaminophen (TYLENOL) tablet 650 mg 650 mg oral q6h PRN Zora Pfeiffer NP [START ON 01/28/2025] heparin (UFH) bolus from infusion 5,632 Units 80 Units/kg intravenous q6h Gregor Au MD Or [START ON 01/28/2025] heparin (UFH) bolus from infusion 2,816 Units 40 Units/kg intravenous q6h Gregor Au MD heparin (UFH) in 5% dextrose 25,000 Units/250 mL (100 Units/mL) infusion 18 Units/kg/hr intravenousContinuous Kingsleykyaw Au MD 12.7 mL/hr at 01/27/252027 18 Units/kg/hr at 01/27/252027 hydrALAZINE (APRESOLINE) injection 10 mg 10 mg intravenous q6h PRN Zora Pfeiffer NP ondansetron (PF) (ZOFRAN) injection 4 mg 4 mg intravenous q8h PRN Zora Pfeiffer NP No current outpatient medications on file. [4] No Known Allergies [5] No family history on file. documented in this encounter Plan of Treatment Not on file documented as of this encounter Procedures Procedure Name Priority Date/Time Associated Diagnosis Comments HEPARIN AND LOW MOLECULAR WEIGHT ANTI XA LEVEL Routine 01/29/2025 5:45 AM EDT COMPLETE BLOOD COUNT Routine 01/29/2025 5:45 AM EDT PHOSPHORUS Routine 01/29/2025 5:45 AM EDT MAGNESIUM Routine 01/29/2025 5:45 AM EDT BASIC METABOLIC PANEL Routine 01/29/2025 5:45 AM EDT HEPARIN AND LOW MOLECULAR WEIGHT ANTI XA LEVEL Timed 01/28/2025 5:11 PM EDT SST - GOLD Routine 01/28/2025 10:57 AM EDT EXTRA TUBES Routine 01/28/2025 10:57 AM EDT LAVENDER - EDTA Routine 01/28/2025 10:57 AM EDT HEPARIN AND LOW MOLECULAR WEIGHT ANTI XA LEVEL Timed 01/28/2025 10:[address] VENOGRAM HEAD WO AND/OR W CONTRAST STAT 01/28/2025 9:22 AM EDT LACTATE, WITH REFLEX Timed 01/28/2025 8:56 AM EDT CBC WITH AUTO DIFFERENTIAL Routine 01/28/2025 8:56 AM EDT CBC AND DIFFERENTIAL Routine 01/28/2025 8:56 AM EDT MAGNESIUM Routine 01/28/2025 8:56 AM EDT BASIC METABOLIC PANEL Routine 01/28/2025 8:56 AM EDT LACTATE, WITH REFLEX Timed 01/28/2025 2:46 AM EDT HEPARIN AND LOW MOLECULAR WEIGHT ANTI XA LEVEL Timed 01/28/2025 2:46 AM EDT URINALYSIS WITH REFLEX MICROSCOPIC AND CULTURE STAT 01/27/2025 9:17 PM EDT SON URINE CULTURE TUBE STAT 01/27/2025 9:17 PM EDT URINALYSIS WITH REFLEX MICROSCOPIC AND CULTURE STAT 01/27/2025 9:[address] ANGIO CHEST/ABDOMEN/PELVIS WO AND/OR W CONTRAST STAT 01/27/2025 7:12 PM EDT Hypertension, unspecified type TROPONIN I HIGH SENSITIVITY STAT 01/27/2025 4:57 PM EDT CBC WITH AUTO DIFFERENTIAL STAT 01/27/2025 4:57 PM EDT ACTIVATED PARTIAL THROMBOPLASTIN TIME STAT 01/27/2025 4:57 PM EDT PROTHROMBIN TIME WITH INR STAT 01/27/2025 4:57 PM EDT HEPARIN AND LOW MOLECULAR WEIGHT ANTI XA LEVEL STAT Add-on 01/27/2025 4:57 PM EDT CBC AND DIFFERENTIAL STAT 01/27/2025 4:57 PM EDT B-TYPE NATRIURETIC PEPTIDE STAT 01/27/2025 4:57 PM EDT MAGNESIUM STAT 01/27/2025 4:57 PM EDT LIPASE STAT 01/27/2025 4:57 PM EDT CREATINE KINASE STAT Add-on 01/27/2025 4:57 PM EDT COMPREHENSIVE METABOLIC PANEL STAT 01/27/2025 4:57 PM EDT ECG 12-LEAD STAT 01/27/2025 2:38 PM EDT [facility] 30-74 MINUTES Routine 01/27/2025 2:20 PM EDT documented in this encounter Results * Anti-Xa - Every 6 Hours (01/29/2025 5:45 AM EDT) Heparin Anti-Xa 0.50 0.30 - 0.70 I Unit/mL LAB COAGULATION METHOD 01/29/2025 6:38 AM EDT [facility] Blood Venous blood specimen / Unknown Venipuncture / Unknown 01/29/2025 5:45 AM EDT 01/29/2025 6:13 AM EDT Narrative [facility] - 01/29/2025 6:38 AM EDT Therapeutic range listed is for Unfractionated Heparin. LMW Heparin therapeutic range: 0.50-1.20 IU/mL us Elayne Jonas MD LAB BLOOD ORDERABLES Final Resul t [facility] [address] [place] [address], * Magnesium (01/29/2025 5:45 AM EDT) Magnesium 2.2 1.9 - 2.6 mg/dL LAB CHEMISTRY METHOD 01/29/2025 6:54 AM EDT [facility] Blood Venous blood specimen / Unknown Venipuncture / Unknown 01/29/2025 5:45 AM EDT 01/29/2025 6:13 AM EDT us Elayne Jonas MD LAB BLOOD ORDERABLES Final Resul t [facility] [address] [place] [address], * Basic metabolic panel (01/29/2025 5:45 AM EDT) Sodium 133 133 - 145 mmol/L LAB CHEMISTRY METHOD 01/29/2025 6:54 AM T [facility] Potassium 4.0 3.5 - 5.5 mmol/L LAB CHEMISTRY METHOD 01/29/2025 6:54 AM [facility] Chloride 96 96 - 110 mmol/L LAB CHEMISTRY METHOD 01/29/2025 6:54 AM [facility] CO2 31 21 - 32 mmol/L LAB CHEMISTRY METHOD 01/29/2025 6:54 AM [facility] Anion Gap 6 3 - 11 LAB CHEMISTRY METHOD 01/29/2025 6:54 AM [facility] Glucose 99 70 - 100 mg/dL LAB CHEMISTRY METHOD 01/29/2025 6:54 AM [facility] BUN 14 5 - 25 mg/dL LAB CHEMISTRY METHOD 01/29/2025 6:54 AM [facility] Creatinine 0.70 0.70 - 1.30 mg/dL LAB CHEMISTRY METHOD 01/29/2025 6:54 AM [facility] eGFR 119 >=60 mL/min/1. 73m2 LAB CHEMISTRY METHOD 01/29/2025 6:54 AM [facility] Comment:Calculation based on the Chronic Kidney Disease Epidemiology Collaboration (CKD-EPI) equation refit without adjustment for race. BUN/Creatinine Ratio 20.0 LAB CHEMISTRY METHOD 01/29/2025 6:54 AM [facility] Calcium 9.4 8.5 - 10.5 mg/dL LAB CHEMISTRY METHOD 01/29/2025 6:54 AM [facility] Blood Venous blood specimen / Unknown Venipuncture / Unknown 01/29/2025 5:45 AM EDT 01/29/2025 6:13 AM EDT us Elayne Jonas MD LAB BLOOD ORDERABLES Final Resul t [facility] [address] [place] [address], [place] [phone] * (ABNORMAL) Complete blood count (01/29/2025 5:45 AM EDT) WBC 10.6 4.8 - 10.8 K/mcL LAB HEMETOLOGY METHOD 01/29/2025 6:39 AM [facility] RBC 5.90(H) 4.50 - 5.50 M/mcL LAB HEMETOLOGY METHOD 01/29/2025 6:39 AM [facility] Hemoglobin 15.5 13.5 - 17.5 g/dL LAB HEMETOLOGY METHOD 01/29/2025 6:39 AM [facility] Hematocrit 46.6 42.0 - 54.0 % LAB HEMETOLOGY METHOD 01/29/2025 6:39 AM [facility] MCV 79.0 79.0 - 98.0 FL LAB HEMETOLOGY METHOD 01/29/2025 6:39 AM [facility] MCH 26.3(L) 27.0 - 32.0 pcg LAB HEMETOLOGY METHOD 01/29/2025 6:39 AM [facility] MCHC 33.3 32.0 - 37.0 g/dL LAB HEMETOLOGY METHOD 01/29/2025 6:39 AM [facility] RDW 11.8 11.0 - 15.0 % LAB HEMETOLOGY METHOD 01/29/2025 6:39 AM EDT [facility] Platelets 358 130 - 400 K/mcL LAB HEMETOLOGY METHOD 01/29/2025 6:39 AM EDT [facility] MPV 8.8 7.0 - 11.0 FL LAB HEMETOLOGY METHOD 01/29/2025 6:39 AM EDT [facility] NRBC 0.0 <1.0 % LAB HEMETOLOGY METHOD 01/29/2025 6:39 AM EDT [facility] NRBC Absolute 0.00 <0.10 K/mcL LAB HEMETOLOGY METHOD 01/29/2025 6:39 AM EDT [facility] Blood Venous blood specimen / Unknown Venipuncture / Unknown 01/29/2025 5:45 AM EDT 01/29/2025 6:13 AM EDT us Elayne Jonas MD LAB BLOOD ORDERABLES Final Resul t Performing Organization Address City/[facility]/ZIP Co de Phone Number [facility] [address] [place] [address], [place] [phone] * Phosphorus (01/29/2025 5:45 AM EDT) Phosphorus 2.7 2.5 - 4.5 mg/dL LAB CHEMISTRY METHOD 01/29/2025 6:54 AM EDT [facility] Blood Venous blood specimen / Unknown Venipuncture / Unknown 01/29/2025 5:45 AM EDT 01/29/2025 6:13 AM EDT us Elayne Jonas MD LAB BLOOD ORDERABLES Final Resul t Performing Organization Address City/[facility]/ZIP Co de Phone Number [facility] [address] [place] [address], [place] [phone] * Anti-Xa - Every 6 Hours (01/28/2025 5:11 PM EDT) Heparin Anti-Xa 0.43 0.30 - 0.70 I Unit/mL LAB COAGULATION METHOD 01/28/2025 5:27 PM EDT [facility] Blood Venous blood specimen / Unknown Venipuncture / Unknown 01/28/2025 5:11 PM EDT 01/28/2025 5:15 PM EDT Narrative [facility] - 01/28/2025 5:27 PM EDT Therapeutic range listed is for Unfractionated Heparin. LMW Heparin therapeutic range: 0.50-1.20 IU/mL us Elayne Jonas MD LAB BLOOD ORDERABLES Final Resul t Performing Organization Address [facility] Co de Phone Number [facility] [address] [place] [address], [place] [phone] * Lavender tube (01/28/2025 10:57 AM EDT) Extra Tube Hold for add-ons. 01/28/2025 1:01 PM EDT [facility] Comment:Auto resulted. Blood Venous blood specimen / Unknown Venipuncture / Unknown 01/28/2025 10:57 AM EDT 01/28/2025 11:06 AM EDT us Elayne Jonas MD LAB BLOOD ORDERABLES Final Resul t [facility] [address] [place] [address], [place] [phone] * SST tube (01/28/2025 10:57 AM EDT) Extra Tube Hold for add-ons. 01/28/2025 1:01 PM EDT [facility] Comment:Auto resulted. Blood Venous blood specimen / Unknown Venipuncture / Unknown 01/28/2025 10:57 AM EDT 01/28/2025 11:06 AM EDT us Elayne Jonas MD LAB BLOOD ORDERABLES Final Resul t Performing Organization Address [facility] de Phone Number [facility] [address] [place] [address], [place] [phone] * Anti-Xa - Every 6 Hours (01/28/2025 10:57 AM EDT) Heparin Anti-Xa 0.35 0.30 - 0.70 I Unit/mL LAB COAGULATION METHOD 01/28/2025 11:18 AM EDT [facility] Blood Venous blood specimen / Unknown Venipuncture / Unknown 01/28/2025 10:57 AM EDT 01/28/2025 11:05 AM EDT Narrative [facility] - 01/28/2025 11:18 AM EDT Therapeutic range listed is for Unfractionated Heparin. LMW Heparin therapeutic range: 0.50-1.20 IU/mL us Elayne Jonas MD LAB BLOOD ORDERABLES Final Resul t Performing Organization Address [facility] de Phone Number [facility] [address] [place] [address], [place] [phone] * CT Venogram Head wo and/or w Contrast (01/28/2025 9:22 AM EDT) Anatomical Region Laterality Modality Head and Neck Computed Tomogra phy 01/28/2025 9:42 AM EDT Impressions 01/28/2025 9:46 AM EDT Normal head CT. Normal CT venogram. -------- FINAL REPORT -------- Dictated By: Srinivasa Stovall Dictated Date: 01/28/2025 09:42 ET Assigned Physician: Srinivasa Stovall Reviewed and Electronically Signed By: Srinivasa Stovall Signed Date: 01/28/2025 09:46 ET Workstation ID: [id number] Transcribed By: Self Edit Transcribed Date: 01/28/2025 09:42 ET Narrative 01/28/2025 9:46 AM EDT PROCEDURE: Head CT and CT venogram. HISTORY: Headache, HTN urgency, thrombus r/o. COMPARISON: None. TECHNIQUE: Noncontrast head CT with coronal and sagittal reformats followed by a contrast enhanced CT venogram. IV contrast dose: 90 mL ISOVUE. Dose length product: mGy-cm. FINDINGS: Brain: No hemorrhage, edema, mass, or extra-axial fluid collection. No CT evidence of an acute large vessel infarct. Ventricles and sulci are age commensurate. No abnormal enhancement. CT venogram: The dural venous sinuses are patent. The left transverse and sigmoid sinus are small in caliber. There is no evidence of a dural venous sinus stenosis. 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 Sinuses/mastoids: Normal. Orbits: Normal. Calvarium: Normal. Other: The skull base soft tissues are normal. Procedure Note Srinivasa Stovall MD - 01/28/2025 PROCEDURE: Head CT and CT venogram. HISTORY: Headache, HTN urgency, thrombus r/o. COMPARISON: None. TECHNIQUE: Noncontrast head CT with coronal and sagittal reformatsfollowed by a contrast enhanced CT venogram. IV contrast dose: 90 mL ISOVUE. Dose length product: mGy-cm. FINDINGS: Brain: No hemorrhage, edema, mass, or extra-axial fluid collection. No CTevidence of an acute large vessel infarct. Ventricles and sulci are agecommensurate. No abnormal enhancement. CT venogram: The dural venous sinuses are patent. The left transverse andsigmoid sinus are small in caliber. There is no evidence of a duralvenous sinus stenosis. Incidental note of a developmental venous anomalyin the right popeye. Sinuses/mastoids: Normal. Orbits: Normal. Calvarium: Normal. Other: The skull base soft tissues are normal. IMPRESSION: Normal head CT. Normal CT venogram. -------- FINAL REPORT -------- Dictated By: Srinivasa Stovall Dictated Date: 01/28/2025 09:42 ET Assigned Physician: Srinivasa Stovall Reviewed and Electronically Signed By: Srinivasa Stovall Signed Date: 01/28/2025 09:46 ET Workstation ID: [id number] Transcribed By: Self Edit Transcribed Date: 01/28/2025 09:42 ET Zora Adams [place] [employer] IMG CT PROCEDURES Final Result * (ABNORMAL) CBC auto differential (01/28/2025 8:56 AM EDT) Pathologist [facility] WBC 13.7(H) 4.8 - 10.8 K/mcL LAB HEMETOLOGY METHOD 01/28/2025 9:15 AM EDT [facility] RBC 6.00(H) 4.50 - 5.50 M/mcL LAB HEMETOLOGY METHOD 01/28/2025 9:15 AM [facility] Hemoglobin 15.2 13.5 - 17.5 g/dL LAB HEMETOLOGY METHOD 01/28/2025 9:15 AM EDT [facility] Hematocrit 46.4 42.0 - 54.0 % LAB HEMETOLOGY METHOD 01/28/2025 9:15 AM T [facility] MCV 78.0(L) 79.0 - 98.0 FL LAB HEMETOLOGY METHOD 01/28/2025 9:15 AM [facility] MCH 25.5(L) 27.0 - 32.0 pcg LAB HEMETOLOGY METHOD 01/28/2025 9:15 AM EDT [facility] MCHC 32.8 32.0 - 37.0 g/dL LAB HEMETOLOGY METHOD 01/28/2025 9:15 AM EDT [facility] RDW 11.9 11.0 - 15.0 % LAB HEMETOLOGY METHOD 01/28/2025 9:15 AM [facility] Platelets 417(H) 130 - 400 K/mcL LAB HEMETOLOGY METHOD 01/28/2025 9:15 AM EDT [facility] MPV 8.7 7.0 - 11.0 FL LAB HEMETOLOGY METHOD 01/28/2025 9:15 AM [facility] NRBC 0.0 <1.0 % LAB HEMETOLOGY METHOD 01/28/2025 9:15 AM [facility] NRBC Absolute 0.00 <0.10 K/mcL LAB HEMETOLOGY METHOD 01/28/2025 9:15 AM [facility] Neutrophils Relative 78.6 % LAB HEMETOLOGY METHOD 01/28/2025 9:15 AM [facility] Lymphocytes Relative 12.5 % LAB HEMETOLOGY METHOD 01/28/2025 9:15 AM [facility] Monocytes Relative 7.9 % LAB HEMETOLOGY METHOD 01/28/2025 9:15 AM [facility] Eosinophils Relative 0.4 % LAB HEMETOLOGY METHOD 01/28/2025 9:15 AM [facility] Basophils Relative 0.2 % LAB HEMETOLOGY METHOD 01/28/2025 9:15 AM [facility] Immature Granulocytes Relative 0.4 % LAB HEMETOLOGY METHOD 01/28/2025 9:15 AM [facility] Neutrophils Absolute 10.78(H) 1.50 - 7.00 K/mcL LAB HEMETOLOGY METHOD 01/28/2025 9:15 AM [facility] Lymphocytes Absolute 1.71 1.00 - 5.00 K/mcL LAB HEMETOLOGY METHOD 01/28/2025 9:15 AM [facility] Monocytes Absolute 1.09(H) 0.20 - 1.00 K/mcL LAB HEMETOLOGY METHOD 01/28/2025 9:15 AM [facility] Eosinophils Absolute 0.05 0.00 - 0.50 K/mcL LAB HEMETOLOGY METHOD 01/28/2025 9:15 AM EDT [facility] Basophils Absolute 0.03 0.00 - 0.20 K/[facility] LAB HEMETOLOGY METHOD 01/28/2025 9:15 AM EDT [facility] Immature Granulocytes Absolute 0.06(H) 0.00 - 0.03 K/[facility] LAB HEMETOLOGY METHOD 01/28/2025 9:15 AM EDT [facility] Blood Venous blood specimen / Unknown Venipuncture / Unknown 01/28/2025 8:56 AM EDT 01/28/2025 9:01 AM EDT Narayan Taylor MD LAB BLOOD ORDERABLES Final Res ult Performing Organization Address City/[facility]/ZIP Co de Phone Number [facility] [address] [place] [address], [place] [phone] * Lactate, with reflex (01/28/2025 8:56 AM EDT) LACTIC ACID 1.1 0.4 - 2.0 mmol/L LAB CHEMISTRY METHOD 01/28/2025 10:38 AM EDT [facility] Blood Venous blood specimen / Unknown Venipuncture / Unknown 01/28/2025 8:56 AM EDT 01/28/2025 9:01 AM EDT Narayan Taylor MD LAB BLOOD ORDERABLES Final Res ult [facility] [address] [place] [address], [place] [phone] * Magnesium (01/28/2025 8:56 AM EDT) Magnesium 2.3 1.9 - 2.6 mg/dL LAB CHEMISTRY METHOD 01/28/2025 10:01 AM EDT [facility] Blood Venous blood specimen / Unknown Venipuncture / Unknown 01/28/2025 8:56 AM EDT 01/28/2025 9:01 AM EDT Narayan Taylor MD LAB BLOOD ORDERABLES Final Res ult [facility] [address] [place] [address], * (ABNORMAL) Basic metabolic panel (01/28/2025 8:56 AM EDT) Sodium 132(L) 133 - 145 mmol/L LAB CHEMISTRY METHOD 01/28/2025 10:01 AM [facility] Potassium 3.3(L) 3.5 - 5.5 mmol/L LAB CHEMISTRY METHOD 01/28/2025 10:01 AM [facility] Chloride 92(L) 96 - 110 mmol/L LAB CHEMISTRY METHOD 01/28/2025 10:01 AM [facility] CO2 33(H) 21 - 32 mmol/L LAB CHEMISTRY METHOD 01/28/2025 10:01 AM [facility] Anion Gap 7 3 - 11 LAB CHEMISTRY METHOD 01/28/2025 10:01 AM [facility] Glucose 114(H) 70 - 100 mg/dL LAB CHEMISTRY METHOD 01/28/2025 10:01 AM [facility] BUN 15 5 - 25 mg/dL LAB CHEMISTRY METHOD 01/28/2025 10:01 AM [facility] Creatinine 0.78 0.70 - 1.30 mg/dL LAB CHEMISTRY METHOD 01/28/2025 10:01 AM [facility] eGFR 116 >=60 mL/min/1. 73m2 LAB CHEMISTRY METHOD 01/28/2025 10:01 AM [facility] Comment:Calculation based on the Chronic Kidney Disease Epidemiology Collaboration (CKD-EPI) equation refit without adjustment for race. BUN/Creatinine Ratio 19.2 LAB CHEMISTRY METHOD 01/28/2025 10:01 AM EDT [facility] Calcium 9.7 8.5 - 10.5 mg/dL LAB CHEMISTRY METHOD 01/28/2025 10:01 AM EDT [facility] Blood Venous blood specimen / Unknown Venipuncture / Unknown 01/28/2025 8:56 AM EDT 01/28/2025 9:01 AM EDT us Narayan Taylor MD LAB BLOOD ORDERABLES Final Res ult Performing Organization Address City/[facility]/ZIP Co de Phone Number [facility] [address] [place] [address], [place] [phone] * Lactate, with reflex (01/28/2025 2:46 AM EDT) LACTIC ACID 1.3 0.4 - 2.0 mmol/L LAB CHEMISTRY METHOD 01/28/2025 3:19 AM EDT [facility] Blood Venous blood specimen / Unknown Venipuncture / Unknown 01/28/2025 2:46 AM EDT 01/28/2025 2:52 AM EDT us Narayan Taylor MD LAB BLOOD ORDERABLES Final Res ult [facility] [address] [place] [address], [place] [phone] * (ABNORMAL) Anti-Xa - Every 6 Hours (01/28/2025 2:46 AM EDT) Heparin Anti-Xa 0.80(H) 0.30 - 0.70 I Unit/mL LAB COAGULATION METHOD 01/28/2025 3:04 AM EDT [facility] Blood Venous blood specimen / Unknown Venipuncture / Unknown 01/28/2025 2:46 AM EDT 01/28/2025 2:52 AM EDT Narrative [facility] - 01/28/2025 3:04 AM EDT Therapeutic range listed is for Unfractionated Heparin. LMW Heparin therapeutic range: 0.50-1.20 IU/mL us Kingsley Au MD LAB BLOOD ORDERABLES Final R esult Performing Organization Address [facility]/ZIP Co de Phone Number [facility] [address] [place] [address], [place] [phone] * Son urine culture tube (01/27/2025 9:17 PM EDT) [facility] Extra Tube Hold for add-ons. 01/27/2025 11:01 PM EDT [facility] Comment:Auto resulted. Urine Urine specimen obtained by clean catch procedure / Unknown Non-blood Collection / Unknown 01/27/2025 9:17 PM EDT 01/27/2025 9:36 PM EDT Zora Pfeiffer NP LAB URINE ORDERABLES Fin al Result Performing Organization Address [facility] Co de Phone Number [facility] [address] [place] [address], [place] [phone] * (ABNORMAL) Urinalysis with reflex microscopic and culture (01/27/2025 9:17 PM EDT) [facility] Specific [place] Urine >1.045(H) 1.003 - 1.030 LAB URINALYSIS - AUTOMATED METHOD 01/27/2025 9:49 PM EDT [facility] pH, Urine 7.5 5.0 - 8.0 pH LAB URINALYSIS - AUTOMATED METHOD 01/27/2025 9:49 PM EDT [facility] Leukocytes, Urine Negative Negative LAB URINALYSIS - AUTOMATED METHOD 01/27/2025 9:49 PM EDT [facility] Nitrite, Urine Negative Negative LAB URINALYSIS - AUTOMATED METHOD 01/27/2025 9:49 PM [facility] Protein, Urine 100(A) <=Trace mg/dL LAB URINALYSIS - AUTOMATED METHOD 01/27/2025 9:49 PM [facility] Glucose, Urine Negative Negative mg/dL LAB URINALYSIS - AUTOMATED METHOD 01/27/2025 9:49 PM [facility] Ketones, Urine Negative Negative mg/dL LAB URINALYSIS - AUTOMATED METHOD 01/27/2025 9:49 PM [facility] Urobilinogen , Urine 1.0 0.2 - 1.0 mg/dL LAB URINALYSIS - AUTOMATED METHOD 01/27/2025 9:49 PM [facility] Bilirubin, Urine Negative Negative LAB URINALYSIS - AUTOMATED METHOD 01/27/2025 9:49 PM [facility] Blood, Urine Negative Negative LAB URINALYSIS - AUTOMATED METHOD 01/27/2025 9:49 PM [facility] RBC, Urine 3.3 0 - 4 /HPF LAB URINALYSIS - AUTOMATED METHOD 01/27/2025 9:49 PM [facility] WBC, Urine 0.1 0 - 4 /HPF LAB URINALYSIS - AUTOMATED METHOD 01/27/2025 9:49 PM [facility] Squamous Epithelial, Urine 3 0 - 60 /LPF LAB URINALYSIS - AUTOMATED METHOD 01/27/2025 9:49 PM [facility] Bacteria, Urine Negative Negative /HPF LAB URINALYSIS - AUTOMATED METHOD 01/27/2025 9:49 PM [facility] Hyaline Casts, Urine 0.0 0 - 3 /LPF LAB URINALYSIS - AUTOMATED METHOD 01/27/2025 9:49 PM [facility] Urine Urine specimen obtained by clean catch procedure / Unknown Non-blood Collection / Unknown 01/27/2025 9:17 PM EDT 01/27/2025 9:36 PM EDT us Zora Ronald Pfeiffer NP LAB URINE ORDERABLES Fin al Result [facility] [address] [place] [address], [place] [phone] * CT Angio Chest/Abdomen/Pelvis wo and/or w Contrast (01/27/2025 7:12 PM EDT) Anatomical Region Laterality Modality Body Computed Tomogra phy 01/27/2025 7:41 PM EDT Addenda Addendum by Pau Mosqueda MD on 01/27/2025 7:45 PM EDT ADDENDUM: This report was discussed with KINGSLEY AU MD on Jan 27, 2025 19:44:00 EDT. This document has been electronically signed by: Veronique Zazueta on 01/27/2025 19:45:11 Impressions 01/27/2025 7:41 PM EDT 1. 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 Very mild relative diminished enhancement of portions of the left kidney. 2. No aortic aneurysm or dissection. 3. No pulmonary artery embolism. This document has been electronically signed by: Pau Joel MD on 01/27/2025 19:41:16 Narrative 01/27/2025 7:41 PM EDT INDICATION: tachycardia, significnat hypertension, pain in arms CT angiography chest, abdomen and pelvis with contrast. 3-D postprocessing. Comparison: None provided Findings: There is a thrombus or embolus within the left renal artery beginning 2.3 cm from its origin and extending over 7 mm of its length (series 3 images [phone] ). This is nearly completely occlusive. Additional thrombus or embolus within a segmental branch of the left renal artery resulting in occlusion extending over 1.3 cm of the length of the artery ( series 3 images 525- 539 ). Additional major branches of the abdominal aorta are widely patent. No additional thrombus or embolus. No additional focus of occlusion or stenosis. The visualized great vessels are unremarkable. The aorta is normal caliber. No aneurysm or dissection. The visualized thyroid and mediastinum are unremarkable. The heart is normal size. The lungs are clear. There is very mild relative degree of enhancement of portions of the left kidney. No mar infarct. A small scar is present within the right kidney. No hydronephrosis. Remaining abdominal organs are unremarkable. There has been a prior cholecystectomy. No bowel obstruction, pneumoperitoneum, or pneumatosis. Pelvic contents unremarkable. Normal appendix. No acute fractures. Procedure Note Pau Mosqueda MD - 01/27/2025 INDICATION: tachycardia, significnat hypertension, pain in arms CT angiography chest, abdomen and pelvis with contrast. 3-D postprocessing. Comparison: None provided Findings: There is a thrombus or embolus within the left renal artery beginning2.3 cm from its origin and extending over 7 mm of its length (series 3images 522 531 ). This is nearly completely occlusive. Additional thrombus or embolus within a segmental branch of the left renal artery resulting in occlusion extending over 1.3 cm of the length of the artery ( series 3 images 525- 539 ). Additional major branches of the abdominal aorta are widely patent. No additional thrombus or embolus. No additional focus of occlusion or stenosis. The visualized great vessels are unremarkable.The aorta is normal caliber. No aneurysm or dissection. The visualized thyroid and mediastinum are unremarkable. The heart is normal size. The lungs are clear. There is very mild relative degree of enhancement of portions of theleft kidney. No mar infarct. A small scar is present within the rightkidney. No hydronephrosis. Remaining abdominal organs are unremarkable. Therehas been a prior cholecystectomy. No bowel obstruction, pneumoperitoneum, or pneumatosis. Pelvic contents unremarkable. Normal appendix. No acute fractures. IMPRESSION: 1. Thrombi or emboli involving the left main renal artery and asegmental branch of the left renal artery. Very mild relative diminishedenhancement of portions of the left kidney. 2. No aortic aneurysm or dissection. 3. No pulmonary artery embolism. This document has been electronically signed by: Pau Joel MD on 01/27/2025 19:41:16 Kingsley Au MD IMG CT PROCEDURES Edited Res ult - Final * Creatine kinase (01/27/2025 4:57 PM EDT) [facility] Total CK 61 22 - 269 unit/L LAB CHEMISTRY METHOD 01/27/2025 10:09 PM EDT [facility] Blood Venous blood specimen / Unknown Venipuncture / Unknown 01/27/2025 4:57 PM EDT 01/27/2025 5:36 PM EDT us Zora Pfeiffre NP LAB BLOOD ORDERABLES Fin al Result [facility] [address] [place] [address], [place] [phone] * (ABNORMAL) Anti-Xa - STAT (01/27/2025 4:57 PM EDT) [facility] Heparin Anti-Xa <0.04(L) 0.30 - 0.70 I Unit/mL LAB COAGULATION METHOD 01/27/2025 8:17 PM EDT [facility] Blood Venous blood specimen / Unknown Venipuncture / Unknown 01/27/2025 4:57 PM EDT 01/27/2025 5:36 PM EDT Narrative [facility] - 01/27/2025 8:17 PM EDT Therapeutic range listed is for Unfractionated Heparin. LMW Heparin therapeutic range: 0.50-1.20 IU/mL us Kingsley Au MD LAB BLOOD ORDERABLES Final R esult [facility] [address] [place] [address], [place] [phone] * (ABNORMAL) CBC auto differential (01/27/2025 4:57 PM EDT) [facility] WBC 11.5(H) 4.8 - 10.8 K/mcL LAB HEMETOLOGY METHOD 01/27/2025 5:47 PM EDT [facility] RBC 6.10(H) 4.50 - 5.50 M/mcL LAB HEMETOLOGY METHOD 01/27/2025 5:47 PM EDT [facility] Hemoglobin 16.3 13.5 - 17.5 g/dL LAB HEMETOLOGY METHOD [facility] Hematocrit 47.3 42.0 - 54.0 % LAB HEMETOLOGY METHOD 01/27/2025 [facility] MCV 77.8(L) 79.0 - 98.0 FL LAB HEMETOLOGY METHOD 01/27/2025 5:47 PM [facility] MCH 26.8(L) 27.0 - 32.0 pcg LAB HEMETOLOGY METHOD 01/27/2025 5:47 PM [facility] MCHC 34.5 32.0 - 37.0 g/dL LAB HEMETOLOGY METHOD 01/27/2025 5:[facility] RDW 11.8 11.0 - 15.0 % LAB HEMETOLOGY METHOD 01/27/2025 5:[facility] Platelets 373 130 - 400 K/mcL LAB HEMETOLOGY METHOD 01/27/2025 5:[facility] MPV 8.7 7.0 - 11.0 FL LAB HEMETOLOGY METHOD 01/27/2025 5:[facility] NRBC 0.0 <1.0 % LAB HEMETOLOGY METHOD 01/27/2025 5:[facility] NRBC Absolute 0.00 <0.10 K/mcL LAB HEMETOLOGY METHOD 01/27/2025 5:[facility] Neutrophils Relative 78.2 % LAB HEMETOLOGY METHOD 01/27/2025 5:47 PM EDT [facility] Lymphocytes Relative 11.6 % LAB HEMETOLOGY METHOD 01/27/2025 5:47 PM [facility] Monocytes Relative 9.2 % LAB HEMETOLOGY METHOD 01/27/2025 5:47 PM [facility] Eosinophils Relative 0.3 % LAB HEMETOLOGY METHOD 01/27/2025 5:47 PM [facility] Basophils Relative 0.3 % LAB HEMETOLOGY METHOD 01/27/2025 5:47 PM [facility] Immature Granulocytes Relative 0.4 % LAB HEMETOLOGY METHOD 01/27/2025 5:47 PM [facility] Neutrophils Absolute 8.96(H) 1.50 - 7.00 K/mcL LAB HEMETOLOGY METHOD 01/27/2025 5:47 PM [facility] Lymphocytes Absolute 1.33 1.00 - 5.00 K/mcL LAB HEMETOLOGY METHOD 01/27/2025 5:47 PM [facility] Monocytes Absolute 1.06(H) 0.20 - 1.00 K/mcL LAB HEMETOLOGY METHOD 01/27/2025 5:47 PM [facility] Eosinophils Absolute 0.04 0.00 - 0.50 K/mcL LAB HEMETOLOGY METHOD 01/27/2025 5:47 PM [facility] Basophils Absolute 0.03 0.00 - 0.20 K/mcL LAB HEMETOLOGY METHOD 01/27/2025 5:47 PM [facility] Immature Granulocytes Absolute 0.05(H) 0.00 - 0.03 K/mcL LAB HEMETOLOGY METHOD 01/27/2025 5:47 PM [facility] Blood Venous blood specimen / Unknown Venipuncture / Unknown 01/27/2025 4:57 PM EDT 01/27/2025 5:36 PM EDT Kingsley Au MD LAB BLOOD ORDERABLES Final R esult [facility] [address] [place] [address], [place] [phone] * APTT (01/27/2025 4:57 PM EDT) aPTT 35.9 24.1 - 39.3 sec LAB COAGULATION METHOD 01/27/2025 5:59 PM EDT [facility] Blood Venous blood specimen / Unknown Venipuncture / Unknown 01/27/2025 4:57 PM EDT 01/27/2025 5:36 PM EDT Kingsley Au MD LAB BLOOD ORDERABLES Final R esult Performing Organization Address [facility]/ZIP Co de Phone Number [facility] [address] [place] [address], [place] [phone] * Protime-INR (01/27/2025 4:57 PM EDT) [facility] Protime 13.2 10.6 - 13.9 sec LAB COAGULATION METHOD 01/27/2025 5:59 PM EDT [facility] INR 1.1 LAB COAGULATION METHOD 01/27/2025 5:59 PM EDT [facility] Blood Venous blood specimen / Unknown Venipuncture / Unknown 01/27/2025 4:57 PM EDT 01/27/2025 5:36 PM EDT Kingsley Au MD LAB BLOOD ORDERABLES Final R esult Performing Organization Address City/[facility]/ZIP Co de Phone Number [facility] [address] [place] [address], [place] [phone] * Magnesium (01/27/2025 4:57 PM EDT) [facility] Magnesium 2.3 1.9 - 2.6 mg/dL LAB CHEMISTRY METHOD 01/27/2025 6:28 PM EDT [facility] Blood Venous blood specimen / Unknown Venipuncture / Unknown 01/27/2025 4:57 PM EDT 01/27/2025 5:36 PM EDT Kingsley Au MD LAB BLOOD ORDERABLES Final R esult Performing Organization Address City/[facility]/ZIP Co de Phone Number [facility] [address] [place] [address], [place] [phone] * Lipase (01/27/2025 4:57 PM EDT) [facility] Lipase 22 13 - 75 unit/L LAB CHEMISTRY METHOD 01/27/2025 6:28 PM EDT [facility] Blood Venous blood specimen / Unknown Venipuncture / Unknown 01/27/2025 4:57 PM EDT 01/27/2025 5:36 PM EDT Kingsley Au MD LAB BLOOD ORDERABLES Final R esult Performing Organization Address City/[facility]/ZIP Co de Phone Number [facility] [address] [place] [address], [place] [phone] * Troponin I High Sensitivity (01/27/2025 4:57 PM EDT) [facility] High Sensitivity Troponin I 17 <=79 ng/L LAB CHEMISTRY METHOD 01/27/2025 6:27 PM EDT [facility] Blood Venous blood specimen / Unknown Venipuncture / Unknown 01/27/2025 4:57 PM EDT 01/27/2025 5:35 PM EDT Narrative [facility] - 01/27/2025 6:27 PM EDT High levels of biotin in samples may falsely decrease hsTroponin values. Use caution when interpreting hsTroponin results in patients taking biotin who exhibit renal impairment (eGFR <60) or in patients taking more than 20 mg/day of biotin. Kingsley Au MD LAB BLOOD ORDERABLES Final R esult Performing Organization Address [facility]/ZIP Co de Phone Number [facility] [address] [place] [address], [place] [phone] * B-Type Natriuretic Peptide (BNP) (01/27/2025 4:57 PM EDT) BNP 14 <=100 pcg/mL LAB CHEMISTRY METHOD 01/27/2025 6:33 PM EDT [facility] Blood Venous blood specimen / Unknown Venipuncture / Unknown 01/27/2025 4:57 PM EDT 01/27/2025 5:36 PM EDT Kingsley Au MD LAB BLOOD ORDERABLES Final R esult Performing Organization Address [facility]/ZIP Co de Phone Number [facility] [address] [place] [address], [place] [phone] * (ABNORMAL) Comprehensive Metabolic Panel (CMP) (01/27/2025 4:57 PM EDT) Sodium 131(L) 133 - 145 mmol/L LAB CHEMISTRY METHOD 01/27/2025 6:30 PM EDT [facility] Potassium 3.8 3.5 - 5.5 mmol/L LAB CHEMISTRY METHOD 01/27/2025 6:30 PM EDT [facility] Chloride 94(L) 96 - 110 mmol/L LAB CHEMISTRY METHOD 01/27/2025 6:30 PM EDT [facility] [facility] CO2 31 21 - 32 mmol/L LAB CHEMISTRY METHOD 01/27/2025 6:30 PM EDT [facility] Anion Gap 6 3 - 11 LAB CHEMISTRY METHOD 01/27/2025 6:30 PM [facility] Glucose 105(H) 70 - 100 mg/dL LAB CHEMISTRY METHOD 01/27/2025 6:30 PM [facility] BUN 17 5 - 25 mg/dL LAB CHEMISTRY METHOD 01/27/2025 6:30 PM [facility] Creatinine 0.82 0.70 - 1.30 mg/dL LAB CHEMISTRY METHOD 01/27/2025 6:30 PM [facility] eGFR 114 >=60 mL/min/1. 73m2 LAB CHEMISTRY METHOD 01/27/2025 6:30 PM [facility] Comment:Calculation based on the Chronic Kidney Disease Epidemiology Collaboration (CKD-EPI) equation refit without adjustment for race. BUN/Creatinine Ratio 20.7 LAB CHEMISTRY METHOD 01/27/2025 6:30 PM [facility] Calcium 10.1 8.5 - 10.5 mg/dL LAB CHEMISTRY METHOD 01/27/2025 6:30 PM [facility] AST (SGOT) 17 10 - 42 unit/L LAB CHEMISTRY METHOD 01/27/2025 6:30 PM [facility] ALT (SGPT) 22 10 - 60 unit/L LAB CHEMISTRY METHOD 01/27/2025 6:30 PM [facility] Alkaline Phosphatase 104 42 - 121 unit/L LAB CHEMISTRY METHOD 01/27/2025 6:30 PM [facility] Total Protein 8.1(H) 6.0 - 8.0 g/dL LAB CHEMISTRY METHOD 01/27/2025 6:30 PM [facility] Albumin 4.4 3.2 - 5.0 g/dL LAB CHEMISTRY METHOD 01/27/2025 6:30 PM [facility] Total Bilirubin 1.1 0.0 - 1.4 mg/dL LAB CHEMISTRY METHOD 01/27/2025 6:30 PM [facility] Blood Venous blood specimen / Unknown Venipuncture / Unknown 01/27/2025 4:57 PM EDT 01/27/2025 5:36 PM EDT Kingsley Au MD LAB BLOOD ORDERABLES Final R esult Performing Organization Address [facility] Co de Phone Number [facility] [address] [place] [address], [place] [phone] * ECG 12 lead (01/27/2025 2:38 PM EDT) Ventricular Rate ECG 122 BPM GEMUSE Atrial Rate 122 BPM GEMUSE P-R Interval 132 ms GEMUSE QRS Duration 86 ms GEMUSE Q-T Interval 330 ms GEMUSE QTc 470 ms GEMUSE P Wave [place] 67 degrees GEMUSE R [place] -43 degrees GEMUSE T [place] 0 degrees GEMUSE ECG Interpretation Sinus tachycardia Left axis deviation Minimal voltage criteria for LVH, may be normal variant ( Law product ) Abnormal ECG No previous ECGs available Confirmed by GAMAL LOCKHART ([id number]) on 01/28/2025 6:32:51 PM GEM[facility] 01/27/2025 2:38 PM EDT 01/28/2025 6:32 PM EDT us Kingsley Au MD ECG ORDERABLES Final Result Performing Organization Address [facility] Co de Phone Number GEMUSE * [place] CRITICAL CARE 30-74 MINUTES (01/27/2025 2:20 PM EDT) Narrative Kingsley Au MD - 01/27/2025 2:20 PM EDT Kingsley Au MD 01/28/2025 7:57 AM Critical Care Performed by: Kingsley Au MD Authorized by: Kingsley Au MD Critical care provider statement: Critical care time (minutes): 40 Total face to face critical care time (minutes): 25 Critical care time was exclusive of: Separately billable procedures and treating other patients Critical care was necessary to treat or prevent imminent or life-threatening deterioration of the following conditions: Circulatory failure and renal failure Critical care was time spent personally by me on the following activities: Development of treatment plan with patient or surrogate, discussions with consultants, evaluation of patient's response to treatment, ordering and review of laboratory studies, ordering and review of radiographic studies, re-evaluation of patient's condition, review of old charts, ordering and performing treatments and interventions and examination of patient Face to face critical care was time spent personally by me on the following activities: Examination of patient, obtaining history from patient or surrogate and development of treatment plan with patient or surrogate I assumed direction of critical care for this patient from another provider in my specialty: no Care discussed with: admitting provider Comments: Hypertension requiring multiple doses of IV labetalol 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 requiring IV heparin and consultation with vascular surgery us Kingsley Au MD IN CLINIC/BEDSIDE ORDERABLES Final Result documented in this encounter Visit Diagnoses Diagnosis Abdominal pain- Primary Abdominal pain, unspecified site Hypertension, unspecified type 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 Given 01/29/2025 8:38 AM EDT 10 mg Given 01/28/2025 10:01 AM EDT 10 mg apixaban (ELIQUIS) tablet 10 mg 10 mg, oral, 2 times daily, First dose on 01/29/25 at 0900, For 14 doses, Indication: VTE/PE Treatment Given 01/29/2025 8:38 AM EDT 10 mg heparin (UFH) bolus from infusion 5,632 Units 5,632 Units (80 Units/kg 70.4 kg), intravenous, Once, On Thu01/27/25 at 2006, For 1 dose, *Initial bolus for patients LESS than 100 kg* *Maximum dose 8000 units* Bolus from infusion. Suggested bolus infusion time is over 10 minutes., Indication: Treatment of Venous Thromboembolism (i.e. VTE,PE) Bolus from Bag 01/27/2025 8:33 PM EDT 5,632 Units heparin (UFH) in 5% dextrose 25,000 Units/250 mL (100 Units/mL) infusion 18 Units/kg/hr 70.4 kg (12.672 mL/hr, rounded to 12.7 mL/hr), intravenous, Continuous, Starting on Thu01/27/25 at 2005 New Bag 01/28/2025 1:12 PM EDT 17 Units/kg/hr 12 mL/hr Rate/Dose Change 01/28/2025 5:32 AM EDT 17 Units/kg/hr 12 mL/hr New Bag 01/27/2025 8:28 PM EDT 18 Units/kg/hr 12.7 mL/h r hydrALAZINE (APRESOLINE) injection 10 mg 10 mg, intravenous, Every 6 hours PRN, systolic BP greater than:, 150, Starting on Thu01/27/25 at 2151 Given 01/28/2025 5:50 AM EDT 10 mg hydrOXYzine pamoate (VISTARIL) capsule 25 mg 25 mg, oral, Once, On Thu01/27/25 at 1708, For 1 dose Given 01/27/2025 5:13 PM EDT 25 mg iopamidoL (ISOVUE-370) 370 mg iodine /mL (76 %) injection 100 mL 100 mL, intravenous, Once in imaging, Starting on Thu01/28/25 at 0910, For 1 dose Given 01/28/2025 9:12 AM EDT 90 mL iopamidoL (ISOVUE-370) 370 mg iodine /mL (76 %) injection 90 mL 90 mL, intravenous, Once in imaging, Starting on Thu01/27/25 at 1859, For 1 dose Given 01/27/2025 7:04 PM EDT 90 mL labetalol (NORMODYNE) injection 10 mg 10 mg, intravenous, Once, On Thu01/27/25 at 1645, For 1 dose, May administer undiluted over 2 minutes; maximum: 10 mg/minute. Given 01/27/2025 5:11 PM EDT 10 mg labetalol (NORMODYNE) injection 20 mg 20 mg, intravenous, Once, On Thu01/27/25 at 1949, For 1 dose, May administer undiluted over 2 minutes; maximum: 10 mg/minute. Given 01/27/2025 8:09 PM EDT 20 mg losartan (COZAAR) tablet 12.5 mg 12.5 mg, oral, Daily, First dose on Thu01/29/25 at 0900, Hold if systolic blood pressure is less than 100 mmHg Given 01/29/2025 8:38 AM EDT 12.5 mg metoprolol tartrate (LOPRESSOR) injection 2.5 mg 2.5 mg, intravenous, Every 6 hours PRN, high blood pressure, SBP>160, Starting on 01/28/25 at 1335 Given 01/29/2025 6:24 AM EDT 2.5 mg Given 01/28/2025 2:01 PM EDT 2.5 mg ondansetron (PF) (ZOFRAN) injection 4 mg 4 mg, intravenous, Every 8 hours PRN, nausea, vomiting, Starting on Thu01/27/25 at 2050 polyethylene glycol (MIRALAX) packet 17 g 17 g, oral, 2 times daily, First dose on 01/28/25 at 0930, Provider contacted wants bid dosing. Given 01/28/2025 8:36 PM EDT 17 g Given 01/28/2025 10:01 AM EDT 17 g potassium chloride (KLOR-CON M20) CR tablet 20 mEq 20 mEq, oral, Once, On 01/28/25 at 1400, For 1 dose, Tablet may be swallowed whole (do not crush/chew/suck on) OR broken in half and each half swallowed separately OR dissolved (whole tablet) in ~4 ounces of water (allow ~2 minutes to dissolve, stir well and administer immediately). Given 01/28/2025 1:11 PM EDT 20 mEq potassium chloride (KLOR-CON M20) CR tablet 40 mEq 40 mEq, oral, Once, On 01/28/25 at 1200, For 1 dose, Tablet may be swallowed whole (do not crush/chew/suck on) OR broken in half and each half swallowed separately OR dissolved (whole tablet) in ~4 ounces of water (allow ~2 minutes to dissolve, stir well and administer immediately). Given 01/28/2025 11:56 AM EDT 40 mEq sodium chloride 0.9 % flush 10 mL 10 mL, intravenous, Once, On Thu01/27/25 at 1900, For 1 dose Given 01/27/2025 7:04 PM EDT 10 mL sodium chloride 0.9 % flush 10 mL 10 mL, intravenous, Once, On 01/28/25 at 0930, For 1 dose Given 01/28/2025 9:12 AM EDT 10 mL documented in this encounter Historical Medications * This list may reflect changes made after this encounter. atorvastatin (LIPITOR) 20 mg tablet Take 1 tablet (20 mg total) by mouth at bedtime. at bedtime 11/08/2024 amLODIPine (NORVASC) 10 mg tablet Take 1 tablet (10 mg total) by mouth 1 (one) time each day. 01/25/2025 added in this encounter Active and Recently Administered Medications Times are shown in EDT. Scheduled Medication Order 01/27/2025 01/28/2025 01/29/2025 amLODIPine (NORVASC) tablet 10 mg 10 mg, oral, Daily, First dose on 01/28/25 at 0930, Per provider: amlodipine 10 mg daily. 1001 (Given - Provider: Jennifer Da Silva RN) 0838 (Given - Provider: Jennifer Da Silva RN) apixaban (ELIQUIS) tablet 10 mg 10 mg, oral, 2 times daily, First dose on 01/29/25 at 0900, For 14 doses, Indication: VTE/PE Treatment 0838 (Given - Provider: Jennifer Da Silva RN) heparin (UFH) bolus from infusion 5,632 Units (COMPLETED) 5,632 Units (80 Units/kg 70.4 kg), intravenous, Once, On Thu01/27/25 at 2006, For 1 dose, *Initial bolus for patients LESS than 100 kg* *Maximum dose 8000 units* Bolus from infusion. Suggested bolus infusion time is over 10 minutes., Indication: Treatment of Venous Thromboembolism (i.e. VTE,PE) 2032 (Bolus from Bag - Provider: Arminda Winter RN) hydrOXYzine pamoate (VISTARIL) capsule 25 mg (COMPLETED) 25 mg, oral, Once, On Thu01/27/25 at 1708, For 1 dose 1713 (Given - Provider: Chinyere Sauceda RN) iopamidoL (ISOVUE-370) 370 mg iodine /mL (76 %) injection 100 mL (COMPLETED) 100 mL, intravenous, Once in imaging, Starting on Thu01/28/25 at 0910, For 1 dose 0912 (Given - Provider: Tere Thorpe) iopamidoL (ISOVUE-370) 370 mg iodine /mL (76 %) injection 90 mL (COMPLETED) 90 mL, intravenous, Once in imaging, Starting on Thu01/27/25 at 1859, For 1 dose 1904 (Given - Provider: Alex Abbasi) labetalol (NORMODYNE) injection 10 mg (COMPLETED) 10 mg, intravenous, Once, On Thu01/27/25 at 1645, For 1 dose, May administer undiluted over 2 minutes; maximum: 10 mg/minute. 1711 (Given - Provider: Chinyere Sauceda RN - Comment: 153/102) labetalol (NORMODYNE) injection 20 mg (COMPLETED) 20 mg, intravenous, Once, On Thu01/27/25 at 1949, For 1 dose, May administer undiluted over 2 minutes; maximum: 10 mg/minute. 2008 (Given - Provider: Arminda Winter RN) losartan (COZAAR) tablet 12.5 mg 12.5 mg, oral, Daily, First dose on Thu01/29/25 at 0900, Hold if systolic blood pressure is less than 100 mmHg 0838 (Given - Provider: Jennifer Da Silva RN) polyethylene glycol (MIRALAX) packet 17 g 17 g, oral, 2 times daily, First dose on Thu01/28/25 at 0930, Provider contacted wants bid dosing. 1001 (Given - Provider: Jennifer Da Silva, KRISTAL)2036 (Given - Provider: Karolyn Jauregui RN) 0838 (Not Given - Provider: Jennifer Da Silva RN - Reason: Patient/Resident/Age nt refused - education provided ) potassium chloride (KLOR-CON M20) CR tablet 20 mEq (COMPLETED)(Linked Group 1) 20 mEq, oral, Once, On Thu01/28/25 at 1400, For 1 dose, Tablet may be swallowed whole (do not crush/chew/suck on) OR broken in half and each half swallowed separately OR dissolved (whole tablet) in ~4 ounces of water (allow ~2 minutes to dissolve, stir well and administer immediately). 1311 (Given - Provider: Jennifer Da Silva RN) potassium chloride (KLOR-CON M20) CR tablet 40 mEq (COMPLETED)(Linked Group 1) 40 mEq, oral, Once, On 01/28/25 at 1200, For 1 dose, Tablet may be swallowed whole (do not crush/chew/suck on) OR broken in half and each half swallowed separately OR dissolved (whole tablet) in ~4 ounces of water (allow ~2 minutes to dissolve, stir well and administer immediately). 1156 (Given - Provider: eJnnifer Da Silva RN) sodium chloride 0.9 % flush 10 mL (COMPLETED) 10 mL, intravenous, Once, On Thu01/27/25 at 1900, For 1 dose 1904 (Given - Provider: Alex Abbasi) sodium chloride 0.9 % flush 10 mL (COMPLETED) 10 mL, intravenous, Once, On 01/28/25 at 0930, For 1 dose 0912 (Given - Provider: Tere Thorpe) Continuous Medication Order 01/27/2025 01/28/2025 01/29/2025 heparin (UFH) in 5% dextrose 25,000 Units/250 mL (100 Units/mL) infusion (CANCELED) 18 Units/kg/hr 70.4 kg (12.672 mL/hr, rounded to 12.7 mL/hr), intravenous, Continuous, Starting on Thu01/27/25 at 2005 2027 (New Bag - Provider: Arminda Winter RN) 0532 (Rate/Dose Change - Provider: Karolyn Jauregui, KRISTAL)1312 (New Bag - Provider: Jennifer Da Silva, KRISTAL) 0728 (Handoff - Provider: Karolyn Jauregui, RN)0829 (Stopped - Provider: Jennifer Da Silva, KRISTAL - Comment: [Order ends at this time. Document the following action when infusion is complete: Stopped]) PRN Medication Order 01/27/2025 01/28/2025 01/29/2025 acetaminophen (TYLENOL) tablet 650 mg 650 mg, oral, Every 6 hours PRN, mild pain, moderate pain, headaches, fever - temperature GREATER than 38 C (100.4 F), Starting on 01/28/25 at 0300 hydrALAZINE (APRESOLINE) injection 10 mg (CANCELED) 10 mg, intravenous, Every 6 hours PRN, systolic BP greater than:, 150, Starting on Thu01/27/25 at 2151 0550 (Given - Provider: Karolyn Jauregui, KRSITAL) metoprolol tartrate (LOPRESSOR) injection 2.5 mg 2.5 mg, intravenous, Every 6 hours PRN, high blood pressure, SBP>160, Starting on Thu01/28/25 at 1335 1401 (Given - Provider: Jennifer Da Silva RN) 0624 (Given - Provider: Karolyn Jauregui RN) ondansetron (PF) (ZOFRAN) injection 4 mg 4 mg, intravenous, Every 8 hours PRN, nausea, vomiting, Starting on Thu01/27/25 at 2050 Linked Groups Order Group 1: potassium chloride (KLOR-CON M20) CR tablet 40 mEq (COMPLETED)Jump to med 40 mEq, oral, Once, On 01/28/25 at 1200, For 1 dose, Tablet may be swallowed whole (do not crush/chew/suck on) OR broken in half and each half swallowed separately OR dissolved (whole tablet) in ~4 ounces of water (allow ~2 minutes to dissolve, stir well and administer immediately). Followed by potassium chloride (KLOR-CON M20) CR tablet 20 mEq (COMPLETED)Jump to med 20 mEq, oral, Once, On 01/28/25 at 1400, For 1 dose, Tablet may be swallowed whole (do not crush/chew/suck on) OR broken in half and each half swallowed separately OR dissolved (whole tablet) in ~4 ounces of water (allow ~2 minutes to dissolve, stir well and administer immediately). documented in this encounter Orders Medications Ordered That Hayden ht Not Have Been Administered Count Last Ordered Date First Ordered Date acetaminophen (TYLENOL) tablet 1,000 mg 1 1 acetaminophen (TYLENOL) tablet 650 mg 2 heparin (UFH) bolus from inf usion 2,816 Units 1 01/27/2025 heparin (UFH) bolus from inf usion 5,632 Units 1 01/27/2025 ondansetron (PF) (ZOFRAN) injection 4 mg 1 01/27/2025 Consult Count Last Ordered Date First Orde red Date IP CONSULT TO VASCULAR SURGERY 1 01/27/2025 IV Count Last Ordered Date First Orde red Date INSERT PERIPHERAL IV 1 01/27/2025 Admission Count Last Ordered Date First Orde red Date ADMIT TO INPATIENT ADMITTING REQ 1 01/28/20 Discharge Count Last Ordered Date First Orde red Date DISCHARGE PATIENT 1 01/29/2025 documented in this encounter Care Teams Foreclosure Paralegal Relationship Specialty Start Date End Date Damon Bartlett MD [address] [place] [address] Dr [address] [place] [address] PCP - General Internal Medicine 01/27/25 documented as of this encounter
--- NOTE | 2025-02-01 13:58 | MHC.PC.OV ---
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 The patient initially sought medical attention at a hospital where they performed a CT scan that appeared normal. However, the patient continued to experience headaches, prompting a return visit to the emergency room at a different hospital. This hospital conducted a CT scan with contrast, revealing a blood clot in the left renal artery. During this visit, the patient received treatment for high blood pressure, including anticoagulation therapy, which resulted in resolution of headaches as reported over the weekend spent in the hospital. For hypertension, the patient has been prescribed amlodipine and losartan, the latter initiated two days prior to today's visit. He reports feeling lightheaded, a potential side effect of antihypertensive medication. The patient acknowledges not owning a blood pressure cuff and discusses dietary concerns, particularly high sodium intake from microwave meals, which may be exacerbating his condition. Complaints of lightheadedness hint at possible over-reduction in blood pressure due to medication. Medical History: - Essential hypertension - Blood clot in left renal artery Medications: - Losartan 12.5 mg for hypertension - Amlodipine 10 mg for hypertension - Eliquis 5 mg twice a day for anticoagulation therapy Diagnostic Results: - CT scan at [facility]: revealed blood clot in left renal artery Social History: - Current diet includes high-sodium microwave meals - Reports increased heart rate with dietary changes [facility] Medical History (Updated 02/01/25 @ 14:33 by Damon Batrlett MD) Hypertension Renal artery thrombosis Lipoma Headache Hyperlipidemia Abdominal pain Family History Mother No problems noted. Father No problems noted. Social History Housing: House Patient Tobacco Use Status: Never used Tobacco e-Cigarette/Vaping Use: Never Used service: No Current occupational status: employed Cognitive needs: No Hearing needs: No Vision needs: No Questionnaire Thrive Questionnaire Date Thrive assessed: 01/17/25 LYNN-7 AMB Questionnaire LYNN-7 Date LYNN - 7 assessed: 01/17/25 Source: Developed by Drs. Gilbert Maynard, Anna Braxton, Luis Valle and colleagues, with an educational marquis from [employer]. Review of Systems Narrative - Neurological: Reports persistent headaches, now resolved with treatment; reports lightheadedness. - Cardiovascular: Denies chest pain or palpitations. - Gastrointestinal: Denies abdominal pain. All systems reviewed & are unremarkable except as reviewed in HPI and above Physical exam (Primary Care) Vital Signs: Last Vital Signs Temp 98.1 F 02/01/25 14:04 Pulse 93 02/01/25 14:04 Resp 16 02/01/25 14:04 BP 130/84 02/01/25 14:11 Pulse Ox 97 02/01/25 14:04 Oxygen Delivery Method Room Air 02/01/25 14:04 BMI result Body Mass Index 23.6 Tobacco/Smoking Status: Tobacco use Status Tobacco use date assessed 01/17/25 02/01/25 14:01 Patient Tobacco Use Status Never used Tobacco 02/01/25 14:01 e-Cigarette/Vaping Use Never Used 02/01/25 14:01 Thrive Assessment: Date of Thrive Assessment Date Thrive assessed 01/17/25 02/01/25 14:01 Narrative General: +Alert and oriented, Well nourished, No acute distress. Eye: Pupils are equal, round and reactive to light, Intact accommodation, Extraocular movements are intact, Normal conjunctiva, Vision unchanged. HENT: Normocephalic, Atraumatic, Tympanic membranes are clear, Normal hearing, Oral mucosa is moist, No pharyngeal erythema, Ear canals patent. Respiratory: Lungs CTA bilaterally, No wheeze, Respirations are non-labored. Cardiovascular: Regular rate, Regular rhythm, S1 auscultated, S2 auscultated, No murmur, Good pulses equal in all extremities, Normal peripheral perfusion, No edema. Gastrointestinal: Soft, Non-tender, Non-distended, Normal bowel sounds, No organomegaly. Musculoskeletal: Normal range of motion, Normal strength, No tenderness, No swelling, No deformity, Normal gait. Integumentary: Warm, Dry, [place], Intact. Neurologic: Alert, Oriented, Normal sensory, Normal motor function, No focal defects, Cranial Nerves II-XII are grossly intact, Normal deep tendon reflexes. Psychiatric: Cooperative, Appropriate mood & affect, Normal judgment. Coding Level of Care Code TCM Mod MDM <= 7 Days Complex EM visit Add On G2211 Diagnoses Renal artery thrombosis N28.0 Hypertension, unspecified type I10 Hypertension type: unspecified Acute nonintractable headache, unspecified headache type R51.9 Headache type: unspecified Headache chronicity pattern: acute headache Intractability: not intractable Other hyperlipidemia E78.49 Hyperlipidemia type: other hyperlipidemia Assessment & Plan Assessment & Plan (1) Renal artery thrombosis: Comment: - Diagnosed at [facility] after undergoing CT imaging with contrast. Per patient he saw a surgeon who advised he be on anticoagulation and per the documentation that patient has he is on Eliquis to be taken for at least 6 months. Documentation also advised the patient follow up with vascular surgery in 3 months with a repeat CT abdomen and pelvis however there is no further investigation available. I have asked patient to bring in records from [facility] in order to further determine if he has been established with vascular surgery in order to get a repeat image Code(s): N28.0 - Ischemia and infarction of kidney Category: Medical (2) Hypertension: Comment: During his hospitalization was found to have elevated pressures and subsequently started on losartan 12.5 mg and amlodipine 10 mg. In clinic today his pressures do remain elevated in the 140s therefore I have advised he keep a blood pressure record and come see me back in 4 weeks for possible up titration of medications. Likely component of the renal artery thrombosis which may be causing a increase in blood pressure. Code(s): I10 - Essential (primary) hypertension Category: Medical Qualifiers: Hypertension type: unspecified Qualified Code(s): I10 - Essential (primary) hypertension (3) Headache: Comment: - Tylenol recommended for headache management as needed. - Likely secondary to elevated blood pressure Code(s): R51.9 - Headache, unspecified Category: Medical Qualifiers: Headache type: unspecified Headache chronicity pattern: acute headache Intractability: not intractable Qualified Code(s): R51.9 - Headache, unspecified (4) Hyperlipidemia: Comment: - Continue Atorvastatin 20mg QHS Code(s): E78.5 - Hyperlipidemia, unspecified Category: Medical Qualifiers: Hyperlipidemia type: other hyperlipidemia Qualified Code(s): E78.49 - Other hyperlipidemia Plan: Health maintenance: - Educate on dietary changes to lower hypertension, including avoiding high sodium processed foods and encouraging a diet of home-prepared meals. Patient was informed and verbally consented to the use of an ambient scribe for clinic note documentation during this visit. Plan During today's visit, I discussed with the patient the confirmed diagnosis of a blood clot in the left renal artery, the management of essential hypertension, and associated symptoms of headaches. We talked about continuing anticoagulation therapy with Eliquis and maintaining the prescribed antihypertensive regimen. I recommended dietary modifications to reduce salt intake and advised on the importance of checking blood pressure regularly to avoid potential side effects of overmedication. Follow-up with a vascular surgeon was emphasized for further management of the thrombus. We also discussed alternative options and strategies if blood pressure remains elevated despite current treatment. Patient Instructions: - Continue taking your prescribed medications: Eliquis, losartan, and amlodipine. - Change your diet to eat less salt; avoid microwave meals and fast food. - Get a blood pressure monitor and check your blood pressure daily, both before and after taking your medications. Write these numbers down. - Follow up with the vascular specialist as advised. - Return in four weeks for re-evaluation.
[2025-02-01 14:04] VITALS: BP 130/80; PULSE 93; RESP 16; TEMP 36.7; O2SAT 97; BMI 23.6
[2025-02-01 14:11] VITALS: BP 130/84
--- OUTSIDE RECORDS SUMMARY | 2025-02-01 19:57 | XMS_ITS | Clinical Summary ---
Author Organization [facility] [address] [place] [address] [place] [phone] Phone Care Team Providers Care Car Construction Superintendent Name Role Phone Damon Bartlett MD Primary Care Provider [phone] Allergies No known active allergies Medications amLODIPine (NORVASC) 10 mg tablet Take 1 tablet (10 mg total) by mouth 1 (one) time each day. 01/25/2025 Active atorvastatin (LIPITOR) 20 mg tablet Take 1 tablet (20 mg total) by mouth at bedtime. at bedtime 11/08/2024 Active apixaban (ELIQUIS) 5 mg tablet Take 2 tablets (10 mg total) by mouth 2 (two) times a day for 7 days, THEN 1 tablet (5 mg total) 2 (two) times a day. 88 each 01/29/2025 5 Active losartan (COZAAR) 25 mg tablet Take 0.5 tablets (12.5 mg total) by mouth 1 (one) time each day. 15 each 11 01/30/2025 6 Active Active Problems Problem Noted Date Diagnosed Date Abdominal pain 01/27/2025 Encounters Date Type Department Care Team Description 01/27/2025 4:12 PM EDT - 01/29/2025 4:49 PM EDT Hospital Encounter [facility] [address] [place] [address] Kingsley Au MD Ishtiaq, Rizwan, MD Shah, Princy, MD Hypertension, unspecified type (Primary Dx); Thrombosis of renal artery (CMS/HCC V24) Discharge Disposition: Home or Self Care from Last 3 Months Medical History Medical History Date Comments Hypertension HLD (hyperlipidemia) Social History Tobacco Use Types Packs/Day Years [...] care for your loved ones. For example, child care development specialist or elderly care for an older adult? [...] on file Sexual Orientation Not on file Obstetrics History Last Filed Vital Signs Vital Sign Reading [...] Mass Index 50.98 01/27/2025 2:33 PM EDT Plan of Treatment Health Maintenance Due Date Last Done Comments DTaP,Tdap,and Td Vaccines (1 - Tdap) 2003 Hepatitis B Vaccines (1 of 3 - 19+ 3-dose series) 2003 Pneumococcal Vaccine: Pediatrics (0 to 5 Years) and At-Risk Patients (6 to 49 Years) (1 of 2 - PCV) 2003 HPV Vaccines (1 - 3-dose SCD M series) 2011 Depression Screening 04/13/2024 Cholesterol Screening (Lipid Panel) 10/12/2024 HIV Screening 10/12/2024 Hepatitis C Screening 10/12/2024 COVID-19 Vaccine (3 - 2024-2 6 season) 2024 05/04/2021, 04/09/2021 Influenza Vaccine (#1) 2024 Social Influencers of Health Screening 01/27/2026 01/27/2025 Hypertension/CHF/CAD Annual BMP Blood Test 01/29/2026 01/29/2025, 01/28/2025, 01/27/2025 RSV Immunization Adult Patients (1 - 1-dose 75+ series) 2059 HIB Vaccines Aged Out No longer eligi ble based on patient's age to complete this topic Hepatitis A Vaccines Aged Out No long er eligible based on patient's age to complete this topic IPV Vaccines Aged Out No longer eligi ble based on patient's age to complete this topic MMR Vaccines Aged Out No longer eligi ble based on patient's age to complete this topic Meningococcal ACWY Vaccine Aged Out N o longer eligible based on patient's age to complete this topic Meningococcal B Vaccine Aged Out No l onger eligible based on patient's age to complete this topic RSV Immunization Patients Under 20 months Aged Out No longer eligible b ased on patient's age to complete this topic Varicella Vaccines Aged Out No longer eligible based on patient's age to complete this topic Procedures Procedure Name Priority Date/Time Associated Diagnosis Comments HEPARIN AND LOW MOLECULAR WEIGHT ANTI XA LEVEL Routine 01/29/2025 5:45 AM EDT MAGNESIUM Routine 01/29/2025 5:45 AM EDT BASIC METABOLIC PANEL Routine 01/29/2025 5:45 AM EDT COMPLETE BLOOD COUNT Routine 01/29/2025 5:45 AM EDT PHOSPHORUS Routine 01/29/2025 5:45 AM EDT HEPARIN AND LOW MOLECULAR WEIGHT ANTI XA LEVEL Timed 01/28/2025 5:11 PM EDT LAVENDER - EDTA Routine 01/28/2025 10:57 AM EDT SST - GOLD Routine 01/28/2025 10:57 AM EDT EXTRA TUBES Routine 01/28/2025 10:57 AM EDT HEPARIN AND LOW MOLECULAR WEIGHT ANTI XA LEVEL Timed 01/28/2025 10:[address] VENOGRAM HEAD WO AND/OR W CONTRAST STAT 01/28/2025 9:22 AM EDT CBC WITH AUTO DIFFERENTIAL Routine 01/28/2025 8:56 AM EDT LACTATE, WITH REFLEX Timed 01/28/2025 8:56 AM EDT MAGNESIUM Routine 01/28/2025 8:56 AM EDT BASIC METABOLIC PANEL Routine 01/28/2025 8:56 AM EDT CBC AND DIFFERENTIAL Routine 01/28/2025 8:56 AM EDT LACTATE, WITH REFLEX Timed 01/28/2025 2:46 AM EDT HEPARIN AND LOW MOLECULAR WEIGHT ANTI XA LEVEL Timed 01/28/2025 2:46 AM EDT SON URINE CULTURE TUBE STAT 01/27/2025 9:17 PM EDT URINALYSIS WITH REFLEX MICROSCOPIC AND CULTURE STAT 01/27/2025 9:17 PM EDT URINALYSIS WITH REFLEX MICROSCOPIC AND CULTURE STAT 01/27/2025 9:[address] ANGIO CHEST/ABDOMEN/PELVIS WO AND/OR W CONTRAST STAT 01/27/2025 7:12 PM EDT Hypertension, unspecified type CREATINE KINASE STAT Add-on 01/27/2025 4:57 PM EDT HEPARIN AND LOW MOLECULAR WEIGHT ANTI XA LEVEL STAT Add-on 01/27/2025 4:57 PM EDT CBC WITH AUTO DIFFERENTIAL STAT 01/27/2025 4:57 PM EDT ACTIVATED PARTIAL THROMBOPLASTIN TIME STAT 01/27/2025 4:57 PM EDT PROTHROMBIN TIME WITH INR STAT 01/27/2025 4:57 PM EDT CBC AND DIFFERENTIAL STAT 01/27/2025 4:57 PM EDT MAGNESIUM STAT 01/27/2025 4:57 PM EDT LIPASE STAT 01/27/2025 4:57 PM EDT TROPONIN I HIGH SENSITIVITY STAT 01/27/2025 4:57 PM EDT B-TYPE NATRIURETIC PEPTIDE STAT 01/27/2025 4:57 PM EDT COMPREHENSIVE METABOLIC PANEL STAT 01/27/2025 4:57 PM EDT ECG 12-LEAD STAT 01/27/2025 2:38 PM EDT NC CRITICAL CARE 30-74 MINUTES Routine 01/27/2025 2:20 PM EDT from Last 3 Months Results * Anti-Xa - Every 6 Hours (01/29/2025 5:45 AM EDT) Only the most recent of5 resultswithin the time period is included. Heparin Anti-Xa 0.50 0.30 - 0.70 I Unit/mL LAB COAGULATION METHOD 01/29/2025 6:38 AM EDT [facility] Blood Venous blood specimen / Unknown Venipuncture / Unknown 01/29/2025 5:45 AM EDT 01/29/2025 6:13 AM EDT Narrative [facility] - 01/29/2025 6:38 AM EDT Therapeutic range listed is for Unfractionated Heparin. LMW Heparin therapeutic range: 0.50-1.20 IU/mL us Elayne Jonas MD LAB BLOOD ORDERABLES Final Resul t [facility] [address] [place] [address], * (ABNORMAL) Complete blood count (01/29/2025 5:45 AM EDT) [facility] Signature WBC 10.6 4.8 - 10.8 K/mcL LAB HEMETOLOGY METHOD 01/29/2025 6:39 AM EDT [facility] RBC 5.90(H) 4.50 - 5.50 M/mcL LAB HEMETOLOGY METHOD 01/29/2025 6:39 AM EDT [facility] Hemoglobin 15.5 13.5 - 17.5 g/dL LAB HEMETOLOGY METHOD 01/29/2025 6:39 AM EDT [facility] Hematocrit 46.6 42.0 - 54.0 % LAB HEMETOLOGY METHOD 01/29/2025 6:39 AM EDT [facility] MCV 79.0 79.0 - 98.0 FL LAB HEMETOLOGY METHOD 01/29/2025 6:39 AM EDT [facility] MCH 26.3(L) 27.0 - 32.0 pcg LAB HEMETOLOGY METHOD 01/29/2025 6:39 AM EDT [facility] MCHC 33.3 32.0 - 37.0 g/dL LAB HEMETOLOGY METHOD 01/29/2025 6:39 AM EDT [facility] RDW 11.8 11.0 - 15.0 % LAB HEMETOLOGY METHOD 01/29/2025 6:39 AM EDT [facility] Platelets 358 130 - 400 K/mcL LAB HEMETOLOGY METHOD 01/29/2025 6:39 AM EDT [facility] MPV 8.8 7.0 - 11.0 FL LAB HEMETOLOGY METHOD 01/29/2025 6:39 AM EDT [facility] NRBC 0.0 <1.0 % LAB HEMETOLOGY METHOD 01/29/2025 6:39 AM EDT [facility] NRBC Absolute 0.00 <0.10 K/mcL LAB HEMETOLOGY METHOD 01/29/2025 6:39 AM EDT [facility] Blood Venous blood specimen / Unknown Venipuncture / Unknown 01/29/2025 5:45 AM EDT 01/29/2025 6:13 AM EDT Elayne Jonas MD LAB BLOOD ORDERABLES Final Resul t [facility] [address] [place] [address], [place] [phone] * Phosphorus (01/29/2025 5:45 AM EDT) Phosphorus 2.7 2.5 - 4.5 mg/dL LAB CHEMISTRY METHOD 01/29/2025 6:54 AM EDT [facility] Blood Venous blood specimen / Unknown Venipuncture / Unknown 01/29/2025 5:45 AM EDT 01/29/2025 6:13 AM EDT us Elayne Jonas MD LAB BLOOD ORDERABLES Final Resul t Performing Organization Address City/[facility]/ZIP Co de Phone Number [facility] [address] [place] [address], [place] [phone] * Magnesium (01/29/2025 5:45 AM EDT) Only the most recent of3 resultswithin the time period is included. Magnesium 2.2 1.9 - 2.6 mg/dL LAB CHEMISTRY METHOD 01/29/2025 6:54 AM EDT [facility] Blood Venous blood specimen / Unknown Venipuncture / Unknown 01/29/2025 5:45 AM EDT 01/29/2025 6:13 AM EDT us Elayne Jonas MD LAB BLOOD ORDERABLES Final Resul t [facility] [address] [place] [address], * Basic metabolic panel (01/29/2025 5:45 AM EDT) Only the most recent of2 resultswithin the time period is included. Sodium 133 133 - 145 mmol/L LAB CHEMISTRY METHOD 01/29/2025 6:54 AM [facility] Potassium 4.0 3.5 - 5.5 mmol/L LAB CHEMISTRY METHOD 01/29/2025 6:54 AM [facility] Chloride 96 96 - 110 mmol/L LAB CHEMISTRY METHOD 01/29/2025 6:54 AM [facility] CO2 31 21 - 32 mmol/L LAB CHEMISTRY METHOD 01/29/2025 6:54 AM [facility] Anion Gap 6 3 - 11 LAB CHEMISTRY METHOD 01/29/2025 6:54 AM [facility] Glucose 99 70 - 100 mg/dL LAB CHEMISTRY METHOD 01/29/2025 6:54 AM [facility] BUN 14 5 - 25 mg/dL LAB CHEMISTRY METHOD 01/29/2025 6:54 AM [facility] Creatinine 0.70 0.70 - 1.30 mg/dL LAB CHEMISTRY METHOD 01/29/2025 6:54 AM [facility] eGFR 119 >=60 mL/min/1. 73m2 LAB CHEMISTRY METHOD 01/29/2025 6:54 AM [facility] Comment:Calculation based on the Chronic Kidney Disease Epidemiology Collaboration (CKD-EPI) equation refit without adjustment for race. BUN/Creatinine Ratio 20.0 LAB CHEMISTRY METHOD 01/29/2025 6:54 AM [facility] Calcium 9.4 8.5 - 10.5 mg/dL LAB CHEMISTRY METHOD 01/29/2025 6:54 AM EDT [facility] Blood Venous blood specimen / Unknown Venipuncture / Unknown 01/29/2025 5:45 AM EDT 01/29/2025 6:13 AM EDT us Elayne Jonas MD LAB BLOOD ORDERABLES Final Resul t Performing Organization Address City/[facility]/ZIP Co de Phone Number [facility] [address] [place] [address], [place] [phone] * SST tube (01/28/2025 10:57 AM EDT) Extra Tube Hold for add-ons. 01/28/2025 1:01 PM EDT [facility] Comment:Auto resulted. Blood Venous blood specimen / Unknown Venipuncture / Unknown 01/28/2025 10:57 AM EDT 01/28/2025 11:06 AM EDT us Elayne Jonas MD LAB BLOOD ORDERABLES Final Resul t Performing Organization Address [facility] Co de Phone Number [facility] [address] [place] [address], [place] [phone] * Lavender tube (01/28/2025 10:57 AM EDT) Extra Tube Hold for add-ons. 01/28/2025 1:01 PM EDT [facility] Comment:Auto resulted. Blood Venous blood specimen / Unknown Venipuncture / Unknown 01/28/2025 10:57 AM EDT 01/28/2025 11:06 AM EDT us Elayne Jonas MD LAB BLOOD ORDERABLES Final Resul t Performing Organization Address City/[facility]/ZIP Co de Phone Number [facility] [address] [place] [address], * CT Venogram Head wo and/or w [...] Signed Date: 01/28/2025 09:46 ET Workstation ID: [id number] Transcribed By: Self Edit Transcribed Date: 01/28/2025 [...] Signed Date: 01/28/2025 09:46 ET Workstation ID: [id number] Transcribed By: Self Edit Transcribed Date: 01/28/2025 09:42 ET Zora Pfeiffer CONCRETE SAW OPERATOR IMG CT PROCEDURES Final Result * Lactate, with reflex (01/28/2025 8:56 AM EDT) Only the most recent of2 resultswithin the time period is included. LACTIC ACID 1.1 0.4 - 2.0 mmol/L LAB CHEMISTRY METHOD 01/28/2025 10:38 AM EDT [facility] Blood Venous blood specimen / Unknown Venipuncture / Unknown 01/28/2025 8:56 AM EDT 01/28/2025 9:01 AM EDT us Narayan Taylor MD LAB BLOOD ORDERABLES Final Res ult [facility] [address] [place] [address], [place] [phone] * (ABNORMAL) CBC auto differential (01/28/2025 8:56 AM EDT) Only the most recent of2 resultswithin the time period is included. [facility] Signature WBC 13.7(H) 4.8 - 10.8 K/mcL LAB HEMETOLOGY METHOD 01/28/2025 9:15 AM [facility] RBC 6.00(H) 4.50 - 5.50 M/mcL LAB HEMETOLOGY METHOD 01/28/2025 9:15 AM [facility] Hemoglobin 15.2 13.5 - 17.5 g/dL LAB HEMETOLOGY METHOD 01/28/2025 9:15 AM [facility] Hematocrit 46.4 42.0 - 54.0 % LAB HEMETOLOGY METHOD 01/28/2025 9:15 AM [facility] MCV 78.0(L) 79.0 - 98.0 FL LAB HEMETOLOGY METHOD 01/28/2025 9:15 AM [facility] MCH 25.5(L) 27.0 - 32.0 pcg LAB HEMETOLOGY METHOD 01/28/2025 9:15 AM [facility] MCHC 32.8 32.0 - 37.0 g/dL LAB HEMETOLOGY METHOD 01/28/2025 9:15 AM [facility] RDW 11.9 11.0 - 15.0 % LAB HEMETOLOGY METHOD 01/28/2025 9:15 AM [facility] Platelets 417(H) 130 - 400 K/mcL LAB HEMETOLOGY METHOD 01/28/2025 9:15 AM [facility] MPV 8.7 7.0 - 11.0 FL LAB HEMETOLOGY METHOD 01/28/2025 9:15 AM [facility] NRBC 0.0 <1.0 % LAB HEMETOLOGY METHOD 01/28/2025 9:15 AM [facility] NRBC Absolute 0.00 <0.10 K/mcL LAB HEMETOLOGY METHOD 01/28/2025 9:15 AM T [facility] Neutrophils Relative 78.6 % LAB HEMETOLOGY METHOD 01/28/2025 9:15 AM [facility] Lymphocytes Relative 12.5 % LAB HEMETOLOGY METHOD 01/28/2025 9:15 AM [facility] Monocytes Relative 7.9 % LAB HEMETOLOGY METHOD 01/28/2025 9:15 AM [facility] Eosinophils Relative 0.4 % LAB HEMETOLOGY METHOD 01/28/2025 9:15 AM [facility] Basophils Relative 0.2 % LAB HEMETOLOGY METHOD 01/28/2025 9:15 AM [facility] Immature Granulocytes Relative 0.4 % LAB HEMETOLOGY METHOD 01/28/2025 9:15 AM [facility] Neutrophils Absolute 10.78(H) 1.50 - 7.00 K/mcL LAB HEMETOLOGY METHOD 01/28/2025 9:15 AM [facility] Lymphocytes Absolute 1.71 1.00 - 5.00 K/mcL LAB HEMETOLOGY METHOD 01/28/2025 9:15 AM [facility] Monocytes Absolute 1.09(H) 0.20 - 1.00 K/mcL LAB HEMETOLOGY METHOD 01/28/2025 9:15 AM [facility] Eosinophils Absolute 0.05 0.00 - 0.50 K/mcL LAB HEMETOLOGY METHOD 01/28/2025 9:15 AM [facility] Basophils Absolute 0.03 0.00 - 0.20 K/mcL LAB HEMETOLOGY METHOD 01/28/2025 9:15 AM [facility] Immature Granulocytes Absolute 0.06(H) 0.00 - 0.03 K/mcL LAB HEMETOLOGY METHOD 01/28/2025 9:15 AM EDT [facility] Blood Venous blood specimen / Unknown Venipuncture / Unknown 01/28/2025 8:56 AM EDT 01/28/2025 9:01 AM EDT us Narayan Taylor MD LAB BLOOD ORDERABLES Final Res ult [facility] [address] [place] [address], [place] [phone] * (ABNORMAL) Urinalysis with reflex microscopic and culture (01/27/2025 9:17 PM EDT) Specific [place] Urine >1.045(H) 1.003 - 1.030 LAB URINALYSIS - AUTOMATED METHOD 01/27/2025 9:49 PM [facility] pH, Urine 7.5 5.0 - 8.0 pH LAB URINALYSIS - AUTOMATED METHOD 01/27/2025 9:49 PM [facility] Leukocytes, Urine Negative Negative LAB URINALYSIS - AUTOMATED METHOD 01/27/2025 9:49 PM [facility] Nitrite, Urine Negative Negative LAB URINALYSIS - AUTOMATED METHOD 01/27/2025 9:49 PM [facility] Protein, Urine 100(A) <=Trace mg/dL LAB URINALYSIS - AUTOMATED METHOD 01/27/2025 9:49 PM [facility] Glucose, Urine Negative Negative mg/dL LAB URINALYSIS - AUTOMATED METHOD 01/27/2025 9:49 PM [facility] Ketones, Urine Negative Negative mg/dL LAB URINALYSIS - AUTOMATED METHOD 01/27/2025 9:49 PM [facility] Urobilinogen , Urine 1.0 0.2 - 1.0 mg/dL LAB URINALYSIS - AUTOMATED METHOD 01/27/2025 9:49 PM [facility] Bilirubin, Urine Negative Negative LAB URINALYSIS - AUTOMATED METHOD 01/27/2025 9:49 PM EDT [facility] Blood, Urine Negative Negative LAB URINALYSIS - AUTOMATED METHOD 01/27/2025 9:49 PM EDT [facility] RBC, Urine 3.3 0 - 4 /HPF LAB URINALYSIS - AUTOMATED METHOD 01/27/2025 9:49 PM EDT [facility] WBC, Urine 0.1 0 - 4 /HPF LAB URINALYSIS - AUTOMATED METHOD 01/27/2025 9:49 PM EDT [facility] Squamous Epithelial, Urine 3 0 - 60 /LPF LAB URINALYSIS - AUTOMATED METHOD 01/27/2025 9:49 PM EDT [facility] Bacteria, Urine Negative Negative /HPF LAB URINALYSIS - AUTOMATED METHOD 01/27/2025 9:49 PM EDT [facility] Hyaline Casts, Urine 0.0 0 - 3 /LPF LAB URINALYSIS - AUTOMATED METHOD 01/27/2025 9:49 PM EDT [facility] Urine Urine specimen obtained by clean catch procedure / Unknown Non-blood Collection / Unknown 01/27/2025 9:17 PM EDT 01/27/2025 9:36 PM EDT Zora Pfeiffer NP LAB URINE ORDERABLES Fin al Result [facility] [address] [place] [address], * Son urine culture tube (01/27/2025 9:17 PM EDT) Extra Tube Hold for add-ons. 01/27/2025 11:01 PM EDT [facility] Comment:Auto resulted. Urine Urine specimen obtained by clean catch procedure / Unknown Non-blood Collection / Unknown 01/27/2025 9:17 PM EDT 01/27/2025 9:36 PM EDT us Zoraclaude Adams Kentrell JESSICA LAB URINE ORDERABLES Fin al Result [facility] [address] [place] [address], [place] [phone] * CT Angio Chest/Abdomen/Pelvis wo and/or w [...] Normal appendix. No acute fractures. Procedure Note Dario-Pau Joel MD - 01/27/2025 INDICATION: tachycardia, significnat hypertension, [...] PROCEDURES Edited Res ult - Final * Troponin I High Sensitivity (01/27/2025 4:57 PM EDT) [facility] High Sensitivity Troponin I 17 <=79 ng/L LAB CHEMISTRY METHOD 01/27/2025 6:27 PM EDT [facility] Blood Venous blood specimen / Unknown Venipuncture / Unknown 01/27/2025 4:57 PM EDT 01/27/2025 5:35 PM EDT Narrative [facility] - 01/27/2025 6:27 PM EDT High levels of biotin in samples may falsely decrease hsTroponin values. Use caution when interpreting hsTroponin results in patients taking biotin who exhibit renal impairment (eGFR <60) or in patients taking more than 20 mg/day of biotin. Kingsley Au MD LAB BLOOD ORDERABLES Final R esult Performing Organization Address City/[facility]/ZIP Co de Phone Number [facility] [address] [place] [address], [place] [phone] * APTT (01/27/2025 4:57 PM EDT) [facility] aPTT 35.9 24.1 - 39.3 sec LAB COAGULATION METHOD 01/27/2025 5:59 PM EDT [facility] Blood Venous blood specimen / Unknown Venipuncture / Unknown 01/27/2025 4:57 PM EDT 01/27/2025 5:36 PM EDT Kingsley Au MD LAB BLOOD ORDERABLES Final R esult Performing Organization Address City/[facility]/ZIP Co de Phone Number [facility] [address] [place] [address], [place] [phone] * Protime-INR (01/27/2025 4:57 PM EDT) [facility] Protime 13.2 10.6 - 13.9 sec LAB COAGULATION METHOD 01/27/2025 5:59 PM EDT [facility] INR 1.1 LAB COAGULATION METHOD 01/27/2025 5:59 PM EDT [facility] Blood Venous blood specimen / Unknown Venipuncture / Unknown 01/27/2025 4:57 PM EDT 01/27/2025 5:36 PM EDT Kingsley Au MD LAB BLOOD ORDERABLES Final R esult Performing Organization Address City/[facility]/ZIP Co de Phone Number [facility] [address] [place] [address], [place] [phone] * B-Type Natriuretic Peptide (BNP) (01/27/2025 4:57 PM EDT) BNP 14 <=100 pcg/mL LAB CHEMISTRY METHOD 01/27/2025 6:33 PM EDT [facility] Blood Venous blood specimen / Unknown Venipuncture / Unknown 01/27/2025 4:57 PM EDT 01/27/2025 5:36 PM EDT Kingsley Au MD LAB BLOOD ORDERABLES Final R esult Performing Organization Address [facility]/ZIP Co de Phone Number [facility] [address] [place] [address], [place] [phone] * Lipase (01/27/2025 4:57 PM EDT) Lipase 22 13 - 75 unit/L LAB CHEMISTRY METHOD 01/27/2025 6:28 PM EDT [facility] Blood Venous blood specimen / Unknown Venipuncture / Unknown 01/27/2025 4:57 PM EDT 01/27/2025 5:36 PM EDT Kingsley Au MD LAB BLOOD ORDERABLES Final R esult [facility] [address] [place] [address], [place] [phone] * Creatine kinase (01/27/2025 4:57 PM EDT) [facility] Total CK 61 22 - 269 unit/L LAB CHEMISTRY METHOD 01/27/2025 10:09 PM EDT [facility] Blood Venous blood specimen / Unknown Venipuncture / Unknown 01/27/2025 4:57 PM EDT 01/27/2025 5:36 PM EDT Zora Pfeiffer NP LAB BLOOD ORDERABLES Fin al Result [facility] [address] [place] [address], [place] [phone] * (ABNORMAL) Comprehensive Metabolic Panel (CMP) (01/27/2025 4:57 PM EDT) [facility] Sodium 131(L) 133 - 145 mmol/L LAB CHEMISTRY METHOD 01/27/2025 6:30 PM EDT [facility] Potassium 3.8 3.5 - 5.5 mmol/L LAB CHEMISTRY METHOD 01/27/2025 6:30 PM [facility] Chloride 94(L) 96 - 110 mmol/L LAB CHEMISTRY METHOD 01/27/2025 6:30 PM EDT [facility] CO2 31 21 - 32 mmol/L LAB CHEMISTRY METHOD 01/27/2025 6:30 PM EDT [facility] Anion Gap 6 3 - 11 LAB CHEMISTRY METHOD 01/27/2025 6:30 PM EDT [facility] Glucose 105(H) 70 - 100 mg/dL LAB CHEMISTRY METHOD 01/27/2025 6:30 PM EDT [facility] BUN 17 5 - 25 mg/dL LAB CHEMISTRY METHOD 01/27/2025 6:30 PM EDT [facility] Creatinine 0.82 0.70 - 1.30 mg/dL LAB CHEMISTRY METHOD 01/27/2025 6:30 PM EDT [facility] eGFR 114 >=60 mL/min/1. 73m2 LAB CHEMISTRY METHOD 01/27/2025 6:30 PM EDT [facility] Comment:Calculation based on the Chronic Kidney Disease Epidemiology Collaboration (CKD-EPI) equation refit without adjustment for race. BUN/Creatinine Ratio 20.7 LAB CHEMISTRY METHOD 01/27/2025 6:30 PM EDT [facility] Calcium 10.1 8.5 - 10.5 mg/dL LAB CHEMISTRY METHOD 01/27/2025 6:30 PM T [facility] AST (SGOT) 17 10 - 42 unit/L LAB CHEMISTRY METHOD 01/27/2025 6:30 PM [facility] ALT (SGPT) 22 10 - 60 unit/L LAB CHEMISTRY METHOD 01/27/2025 6:30 PM T [facility] Alkaline Phosphatase 104 42 - 121 unit/L LAB CHEMISTRY METHOD 01/27/2025 6:30 PM T [facility] Total Protein 8.1(H) 6.0 - 8.0 g/dL LAB CHEMISTRY METHOD 01/27/2025 6:30 PM [facility] Albumin 4.4 3.2 - 5.0 g/dL LAB CHEMISTRY METHOD 01/27/2025 6:30 PM EDT [facility] Total Bilirubin 1.1 0.0 - 1.4 mg/dL LAB CHEMISTRY METHOD 01/27/2025 6:30 PM [facility] Blood Venous blood specimen / Unknown Venipuncture / Unknown 01/27/2025 4:57 PM EDT 01/27/2025 5:36 PM EDT us Kingsley Au MD LAB BLOOD ORDERABLES Final R esult [facility] [address] [place] [address], * ECG 12 lead (01/27/2025 2:38 PM EDT) Ventricular Rate ECG 122 BPM GEMUSE Atrial Rate 122 BPM GEMUSE P-R Interval 132 ms GEMUSE QRS Duration 86 ms GEMUSE Q-T Interval 330 ms GEMUSE QTc 470 ms GEMUSE P Wave [place] 67 degrees GEMUSE R [place] -43 degrees GEMUSE T [place] 0 degrees GEMUSE ECG Interpretation Sinus tachycardia Left axis deviation Minimal voltage criteria for LVH, may be normal variant ( [place] product ) Abnormal ECG No previous ECGs available Confirmed by GAMAL LOCKHART ([id number]) on 01/28/2025 6:32:51 PM GEMUSE 01/27/2025 2:38 PM EDT 01/28/2025 6:32 PM EDT us Kingsley Au MD ECG ORDERABLES Final Result GEMUSE * [place] [facility] 30-74 MINUTES (01/27/2025 2:20 PM [...] consultation with vascular surgery Kingsley Au MD IN CLINIC/BEDSIDE ORDERABLES Final Result from Last 3 Months Insurance [facility] Advance Directives * Full Code - Confirmed (Latest Code Status on File) Date Activated Date Inactivated Comments 01/27/2025 10:02 PM 01/29/2025 6:59 PM This code status was ascertained in the following way: Code status discussion: discussion with patient To update the patient's code status, place a code status order. Do not modify or discontinue any currently active code status orders. * Full Code - Default Date Activated Date Inactivated Comments 01/27/2025 8:46 PM 01/27/2025 10:02 PM This is o rder is used when code status has not been discussed with the patient, or code status is otherwise unknown/unconfirmed To update the patient's code status, place a code status order. Do not modify or discontinue any currently active code status orders. Care Teams Car Construction Superintendent Relationship Specialty Start Date End Date Damon Bartlett MD [address] [place] [address] [address] [place] [address] PCP - General Internal Medicine 01/27/25
== END 2025-02-01 14:30 | disposition home or self-care (01) ==
LOC: HO.HMCHD 13:51
PROVIDERS: PCP Student in an Organized Health Care Education/Training Program; Visit Provider Student in an Organized Health Care Education/Training Program
DX: N28.0 Ischemia and infarction of kidney (principal); I10 Essential (primary) hypertension; R51.9 Headache, unspecified; E78.49 Other hyperlipidemia

== ENCOUNTER 2025-03-01 14:09 | Outpatient (AMB) | payer OTHER, SELFPAY ==
--- NOTE | 2025-03-01 14:19 | A.OFFPC_ITS ---
Vital Signs 03/01/25 14:20 Height 5 ft 9 in Weight 165 lb BMI 24.4 BP 128/84 Blood Pressure Location Rt brachial Position Sitting Pulse 95 Pulse Source Pulse Oximeter Temp 98.1 F Temp Source Temporal Artery Scan Pulse Oximetry (%) 99 Oxygen Delivery Method Room Air Intake Visit Reasons: 4 Week F/U Speech Therapist Technician Required: No Accompanied by: Self / Same As Patient Allergies No Known Allergies Allergy (Verified 03/01/25 14:20) Medication List - Last Reconciled 03/01/25 by Damon Bartlett MD amlodipine 10 mg PO DAILY apixaban (Eliquis) 5 mg PO BID losartan 12.5 mg PO DAILY Tobacco use date assessed: 03/01/25 Dental Screening Dental Screen Date: 03/01/25 Did you have a dental visit in the last 12 months?: Yes Did you have a dental problem in the last 6 months where you did not have access to dental care?: No HPI HPI Comments History of Present Illness Details History of Present Illness The patient is a 39-year-old male presenting for follow-up on chronic medical conditions and medication management. He reports discontinuing atorvastatin due to side effects, including muscle pain, abdominal pain, headaches, and joint pain, which have all resolved since stopping the medication. The patient has a history of a renal artery thrombus and is currently taking Eliquis 5 mg twice daily. He was evaluated at [facility] from a Thursday to Thursday on the of the month but does not have a scheduled follow-up appointment with the vascular surgeon there. For hypertension, the patient was prescribed amlodipine and losartan, but he independently stopped taking losartan because he felt like he was going to fall when taking both medications. He currently only takes amlodipine 10 mg for blood pressure control. The patient reports experiencing anxiety. He notes trying to eat healthier and has lost approximately 10 pounds. Medical History: - Renal artery thrombosis - Hypertension - Anxiety Medications: - Eliquis (apixaban) 5 mg twice a day fo r renal artery thrombus. - Amlodipine 10 mg daily for hypertensio n. Diagnostic Results: - The patient reported undergoing a scan and blood work at an outside hospital, but no specific results were discussed. Social History - Employment: The patient recently left a job for a new one with less stress. - Nutrition: He reports trying to eat he althier. - Weight Management: The patient has los t approximately 10 pounds. - Exercise: He is not currently going to the gym but acknowledges the need to be active. - Mental Health: Reports issues with anx iety and stress. [facility] Medical History (Updated 03/01/25 @ 15:06 by Damon Bartlett MD) Anxiety Hypertension Renal artery thrombosis Lipoma Headache Hyperlipidemia Abdominal pain Family History Mother No problems noted. Father No problems noted. Social History Housing: House Patient Tobacco Use Status: Never used Tobacco e-Cigarette/Vaping Use: Never Used service: No Current occupational status: employed Cognitive needs: No Hearing needs: No Vision needs: No Questionnaire PHQ-9 Over the last 2 weeks, how often have you been bothered by any of the following problems? 1. Little interest or pleasure in doing things: not at all 2. Feeling down, depressed, or hopeless: not at all 3. Trouble falling or staying asleep, or sleeping too much: not at all 4. Feeling tired or having little energy: not at all 5. Poor appetite or overeating: not at all 6. Feeling bad about yourself - or that you are a failure or have let yourself or your family down: not at all 7. Trouble concentrating on things, such as reading the newspaper or watching television: not at all 8. Moving or speaking so slowly that other people could have noticed. Or the opposite - being so fidgety or restless that you have been moving around a lot more than usual: not at all 9. Thoughts that you would be better off or of hurting yourself in some way: not at all Total score: 0 Depression Screening Interpretation: Negative Depression Screening Done: Yes Source: Developed by Drs. Gilbert Maynard, Anna Braxton, Luis Valle and colleagues, with an educational marquis from [employer]. Thrive Questionnaire Date Thrive assessed: 03/01/25 I am a: Patient Within the past 12 months, did the food you bought not last and you didn't have the money to get more?: Never true Within the past 12 months, did you worry whether your food would run out before you got money to buy more?: Never true Do you have trouble paying for medicines?: No Do you have trouble getting transportation to medical appointments?: No Do you have trouble paying your heating and electricity bill?: No Do you have trouble taking care of your child, family member or friend?: No Do you have trouble with day-to-day activities such as bathing, preparing meals, shopping, managing finances, etc.?: No Are you currently unemployed and looking for a job?: No Are you interested in more education?: No THRIVE Score: 0 AUDIT C Alcohol Use Questionnaire (AUDIT-C) 1. How often do you have a drink containing alcohol?: Never 3. How often do you have six or more drinks on one occasion?: Never Total Score: 0 LYNN-7 AMB Questionnaire LYNN-7 Date LYNN - 7 assessed: 03/01/25 Feeling nervous, anxious, or on edge: 0 = Not at all Not being able to stop or control worryin = Not at all Worrying too much about different things: 0 = Not at all Trouble relaxin = Not at all Being so restless that it is hard to sit still: 0 = Not at all Becoming easily annoyed or irritable: 0 = Not at all Feeling afraid as if something awful might happen: 0 = Not at all Total LYNN-7 score (0-4 normal; 5-9 mild; 10-14 moderate; 15-21 severe): 0 Source: Developed by Drs. Gilbert Maynard, Anna Braxton, Luis Valle and colleagues, with an educational marquis from [employer]. Review of Systems Narrative Review of Systems - General: Denies feeling unwell. - Cardiovascular: Denies chest pain. - Respiratory: Denies shortness of breath. - Gastrointestinal: Denies nausea and vomiting. - Musculoskeletal: Denies current muscle or joint pain, but reports a history of both as a side effect of atorvastatin. - Neurological: Reports a history of feeling he was going to fall while taking both amlodipine and losartan. - Denies current headaches but reports a history of headaches as a side effect of atorvastatin. - Psychiatric: Reports anxiety. All systems reviewed & are unremarkable except as reviewed in HPI and above Physical exam (Primary Care) Vital Signs: Last Vital Signs Temp 98.1 F 03/01/25 14:20 Pulse 95 03/01/25 14:20 BP 128/84 03/01/25 14:20 Pulse Ox 99 03/01/25 14:20 Oxygen Delivery Method Room Air 03/01/25 14:20 BMI result Body Mass Index 24.4 Tobacco/Smoking Status: Tobacco use Status Tobacco use date assessed 03/01/25 03/01/25 14:21 Patient Tobacco Use Status Never used Tobacco 03/01/25 14:21 e-Cigarette/Vaping Use Never Used 03/01/25 14:21 PHQ-9: PHQ-9 Score PHQ-9: Total score 0 03/01/25 14:21 Depression Screening Interpretation: Negative Thrive Assessment: Date of Thrive Assessment Date Thrive assessed 03/01/25 03/01/25 14:21 Narrative Physical Exam General: +Alert and oriented, Well nourished, No acute distress. Eye: Pupils are equal, round and reactive to light, Intact accommodation, Extraocular movements are intact, Normal conjunctiva, Vision unchanged. HENT: Normocephalic, Atraumatic, Tympanic membranes are clear, Normal hearing, Oral mucosa is moist, No pharyngeal erythema, Ear canals patent. Respiratory: Lungs CTA bilaterally, No wheeze, Respirations are non-labored. Cardiovascular: Regular rate, Regular rhythm, S1 auscultated, S2 auscultated, No murmur, Good pulses equal in all extremities, Normal peripheral perfusion, No edema. Gastrointestinal: Soft, Non-tender, Non-distended, Normal bowel sounds, No organomegaly. Musculoskeletal: Normal range of motion, Normal strength, No tenderness, No swelling, No deformity, Normal gait. Integumentary: Warm, Dry, [place], Intact. Neurologic: Alert, Oriented, Normal sensory, Normal motor function, No focal defects, Cranial Nerves II-XII are grossly intact, Normal deep tendon reflexes. Psychiatric: Cooperative, Appropriate mood & affect, Normal judgment, Anxiety noted, Buspirone 5 mg twice a day prescribed. Coding Level of Care Code Est Pt Level 4 (95654) Complex EM visit Add On G2211 Diagnoses Renal artery thrombosis N28.0 Hypertension, unspecified type I10 Hypertension type: unspecified Other hyperlipidemia E78.49 Hyperlipidemia type: other hyperlipidemia Anxiety F41.9 Assessment & Plan Assessment & Plan (1) Renal artery thrombosis: Comment: - The patient is clinically stable. - He will continue Eliquis 5 mg twice daily and should not stop taking it. - A referral to vascular surgery will be placed for further management, as he has no scheduled follow-up with his previous provider. (documentation initially advised patient to have repeat CT scan to evaluate status of clot and follow up with vascular surgery however [facility] has not provided him with those details) Code(s): N28.0 - Ischemia and infarction of kidney Category: Medical (2) Hypertension: Comment: - Blood pressure is well-controlled at 120/80 mmHg on amlodipine 10 mg monotherapy. - The patient's self-discontinuation of losartan due to feeling like he would fall is noted and acceptable given his current BP control. - He will continue with the current regimen. Code(s): I10 - Essential (primary) hypertension Category: Medical Qualifiers: Hypertension type: unspecified Qualified Code(s): I10 - Essential (primary) hypertension (3) Hyperlipidemia: Comment: - The patient reports resolution of myalgia, arthralgia, abdominal pain, and headaches after stopping atorvastatin. - The medication will be held. Code(s): E78.5 - Hyperlipidemia, unspecified Category: Medical Qualifiers: Hyperlipidemia type: other hyperlipidemia Qualified Code(s): E78.49 - Other hyperlipidemia (4) Anxiety: Comment: - The patient endorses anxiety - He has agreed to start buspirone 5 mg twice daily. - The patient was counseled that the medication may take up to six weeks to work and that the dose can be adjusted if needed. Code(s): F41.9 - Anxiety disorder, unspecified Category: Medical Plan: Health Maintenance: - Diet: The patient is encouraged to continue eating healthy. - Exercise: Advised to stay active. - Weight Management: The patient has lost about 10 pounds through lifestyle changes. - Vaccinations: Advised to get vaccinations. - Follow-up: A follow-up visit is scheduled for six months, which will serve as his annual physical. Patient was informed and verbally consented to the use of an ambient scribe for clinic note documentation during this visit. Plan I discussed with the patient the importance of continuing Eliquis for his renal artery thrombus without interruption. Since he does not have a scheduled follow- up with the vascular team at [facility], I advised him that we will place a referral to our own vascular surgeon. I emphasized that he must continue taking Eliquis until that appointment, regardless of how long it takes to schedule. We reviewed his blood pressure, which is well-controlled at 120/80 mmHg on amlodipine alone. I concurred with his decision to stop losartan, as he reported feeling as if he might fall while taking it, and his current BP does not warrant dual therapy. Regarding his anxiety, I noted his frequent recent visits and offered a trial of medication, which he accepted. I prescribed buspirone 5 mg twice daily and explained that it may take up to six weeks to become effective, with the possibility of increasing the dose if needed. I encouraged him to continue his healthy eating habits and to remain active. I reassured him that he is doing well and advised him to relax and not worry. We will have a follow-up visit in six months, which will be his annual wellness exam. Orders: Referrals Vascular Surgery Referral N28.0 - Ischemia and infarction of kidney Medications: New buspirone 5 mg PO BID 60 tabs 5RF 30 days Patient Instructions: - Continue taking Eliquis 5 mg twice a day as prescribed. - Do not stop this medication until you have been seen by the vascular surgeon. - Our office will make a referral for you to see a vascular surgeon. - Continue taking your blood pressure medicine, amlodipine 10mg, once daily. - Start taking buspirone 5 mg twice a day for anxiety. - It may take up to six weeks for this medication to start working. - Continue your efforts to eat healthy and stay physically active. - Make sure you are up to date on your vaccinations. - Schedule a follow-up appointment in six months for your annual check-up.
[2025-03-01 14:20] VITALS: BP 128/84; PULSE 95; TEMP 36.7; O2SAT 99; BMI 24.4
--- OUTSIDE RECORDS SUMMARY | 2025-03-02 02:37 | XMS_ITS ---
Author Name [facility] Organization Unknown History of Medication Use Medication Directions Dispensed Refills Start Date End Date Stat amlodipine 01/25/2025 active cephalexin 10/02/2024 active Encounters Encounter Type Encounter Reason Primary Diagnosis Location Date Ambulatory TBE Essential (prima ry) [facility]) 01/25/2025 Care Team Organization Name Specialty Phone Email Start Date End Da te [facility] 01/26/2025 [facility] 01/25/2025
== END 2025-03-01 14:44 | disposition home or self-care (01) ==
LOC: HO.HMCHD 14:09
PROVIDERS: PCP Student in an Organized Health Care Education/Training Program; Visit Provider Student in an Organized Health Care Education/Training Program
DX: N28.0 Ischemia and infarction of kidney (principal); I10 Essential (primary) hypertension; E78.49 Other hyperlipidemia; F41.9 Anxiety disorder, unspecified

== ENCOUNTER 2025-03-17 11:00 | Outpatient (AMB) | payer OTHER, SELFPAY ==
--- NOTE | 2025-03-17 11:13 | A.OFFVIS_ITS ---
Vital Signs 3 03/17/25 11:32 Height 59 ft Weight 161 lb BMI 0.2 BP 132/78 Blood Pressure Location Lt brachial Position Sitting Pulse 80 Intake Visit Reasons: Benign lipomatous neoplasm Intake Note: Patient is seen in office for evaluation of a benign lipoma. Pt c/o: has a lump in the back of the left shoulder, onset one year, denies increase/decrease in size or quantity, no pain, discharge, or other concerns, admits uncomfortable when laying on it Risk Analyst Required: No Accompanied by: Self / Same As Patient Allergies No Known Allergies Allergy (Verified 03/01/25 14:20) Medication List - Last Reconciled 03/17/25 by Anuj Velez MD amlodipine 10 mg PO DAILY apixaban (Eliquis) 5 mg PO BID 30 days buspirone 5 mg PO BID 30 days HPI Comments Details: The patient is a 39 year old male presenting for evaluation of a lump on the back of his shoulder. He is unsure of the duration of the lump, as it was first noticed by his . The mass has remained about the same size since it was discovered. The patient reports the lump is large but denies any associated pain, itchiness, arm pain, or numbness in his hands or fingers. He notes having other smaller lumps on his body, but this is the largest one. The patient is on Eliquis for renal artery thrombosis, which was prescribed at [facility] following an emergency room visit. He has a pending referral to a vascular surgeon but has not yet been contacted for an appointment. [facility], [facility] Medical History Anxiety Hypertension Renal artery thrombosis Lipoma Headache Hyperlipidemia Abdominal pain Family History Mother No problems noted. Father No problems noted. Social History Housing: House Patient Tobacco Use Status: Never used Tobacco e-Cigarette/Vaping Use: Never Used service: No Current occupational status: employed Cognitive needs: No Hearing needs: No Vision needs: No Review of Systems Const All systems reviewed & are unremarkable except as noted in HPI and below Physical Exam Const General: cooperative and no acute distress Nutritional Appearance: well nourished Orientation/consciousness: patient oriented x3 Limitations: no limitations HEENT Head: Yes normocephalic and Yes atraumatic Ears: hearing grossly normal bilaterally Resp Effort & Inspection: normal respiratory effort, no audible wheezes, no cough and no respiratory distress Cardio Jugular venous distension: no JVD GI Inspection: Yes normal to inspection Back/Spine/Pelvis Back/spine/pelvis image: 2 1. 8 cm round soft tissue mass mobile within the subcutaneous tissue at the posterior aspect of the axilla consistent with lipoma. Overlying skin is somewhat rough/irritated. No open wounds are identified. Skin Other: Warm, dry, no rash Neuro General: patient oriented x3 Extrem General: Yes no clubbing, cyanosis or edema Assessment & Plan Assessment & Plan (1) Lipoma: Code(s): D17.9 - Benign lipomatous neoplasm, unspecified Category: Medical Qualifiers: Lipoma location: upper extremity Laterality: left Qualified Code(s): D 17.22 - Benign lipomatous neoplasm of skin and subcutaneous tissue of left arm Plan 39-year-old male patient presenting with a large lipoma of the left posterior axilla/back measuring approximately 8 cm in diameter. The patient is currently asymptomatic and does no other lipomas in other parts of his body. I discussed excision of this large lipoma as a short-stay surgery and reviewed the risks and benefits. As he is on Eliquis this ideally should be held for several days to prevent postoperative hematomas. He is due to see a vascular surgeon to discuss further management of the renal artery thrombosis. I recommended holding off on any surgery until cleared by vascular surgery. He expressed understanding and agrees with the plan. Coding Level of Care Code New Pt Level 4 (54322) Diagnoses Lipoma of left upper extremity D17.22 Lipoma location: upper extremity Laterality: left
[2025-03-17 11:32] VITALS: BP 132/78; PULSE 80
== END 2025-03-17 11:39 | disposition home or self-care (01) ==
LOC: HO.HGS 11:01
PROVIDERS: PCP Student in an Organized Health Care Education/Training Program; Visit Provider Surgery
DX: D17.22 Benign lipomatous neoplasm of skin and subcutaneous tissue of left arm (principal)
CPT/HCPCS: 99204